=== PATIENT | male | born 1945 | race Caucasian/White ===

== ENCOUNTER 2016-05-27 08:16 | Observation (INO) ==
--- NOTE | 2016-05-27 08:23 | Emergency Department Note ---
Disposition Clinical Impression: TIA (transient ischemic attack), Dysarthria, Right arm weakness Disposition: Admitted As Inpatient Referrals: Brandi Yanes MD [Primary Care Provider] - Forms: ED Satisfaction Letter General Adult HPI - General Chief complaint: ED Neuro Symptoms/Deficit Stated complaint: neuro sx Nursing Notes Reviewed: Yes Vital Signs Reviewed: Yes - Related Data Home Medications Medication Instructions Recorded Confirmed Aspirin 81 mg PO DAILY 02/09/16 03/28/16 Atenolol [Tenormin] 50 mg PO DAILY 02/09/16 03/28/16 Hydrochlorothiazide 25 mg PO DAILY 02/09/16 03/28/16 Insulin NPH Human Isophane 20 unit SQ QAM 02/09/16 03/28/16 [Novolin N] Insulin NPH Human Isophane 40 unit SQ QPM 02/09/16 03/28/16 [Novolin N] Lisinopril 2.5 mg PO DAILY 02/09/16 03/28/16 Metformin [Glucophage] 500 mg PO BIDWM 02/09/16 03/28/16 Simvastatin [Zocor] 40 mg PO QPM 02/09/16 03/28/16 Fish Oil/Dha/Epa [Fish Oil 1,200 1 each PO QPM 03/03/16 03/28/16 mg Fish Oil] Previous Rx's Medication Instructions Recorded Clopidogrel [Plavix] 75 mg PO DAILY #30 tablet 02/11/16 Allergies Allergy/AdvReac Type Severity Reaction Status Date / Time No Known Allergies Allergy Verified 03/28/16 09:49 Past Medical History - Past Medical History Medical history: Reports: arthritis, diabetes, GERD, hyperlipidemia, hypertension, myocardial infarction, renal disease, other Surgical history: Reports: orthopedic, other, other Psychiatric history: Reports: no psych history - Social History Smoking Status: Former smoker Smokeless Tobacco Status: No Alcohol use: Reports: none Drug use: Reports: none Course Vital Signs Temperature 97.6 F 05/27/16 08:18 Pulse Rate 59 05/27/16 08:18 Respiratory Rate 16 05/27/16 08:18 Blood Pressure 174/81 05/27/16 08:18 O2 Sat by Pulse Oximetry 94 L 05/27/16 08:18 Temperature 97.6 F 05/27/16 08:18 Pulse Rate 53 05/27/16 09:46 Respiratory Rate 18 05/27/16 09:46 Blood Pressure 154/78 05/27/16 09:46 O2 Sat by Pulse Oximetry 96 05/27/16 09:46 Oxygen Delivery Oxygen Delivery Room Air Medical Decision Making - MDM Narrative Medical decision making narrative: I examined this patient and my medical decision-making was reviewed with the GEOLOGICAL ENGINEERING TEACHER/PA/Advanced Practice Nurse/Resident Physician. I agree with the documented findings, disposition and treatment plan as described except to the extent set forth below. Patient presents this morning with family, was seen by Dr. Hayes and myself, I agree with his evaluation and management plan, supervise care patient outstay. Patient woke up this morning and felt fine about 6 AM he started having some slurred speech felt some weakness in his arm and leg that lasted maybe a few minutes and has completely resolved. He said the same thing happened a couple weeks ago stating hospital for 3 days had some narrowing of his carotid artery and had an surgery on that has been doing well since. He has no focal deficits at this time. Oriented ill workup on him and talk to neurology. He does not meet criteria for stroke alert since his symptoms have resolved. Head CT 05/27/16 08:27 IMPRESSION: No acute intracranial abnormality. Stable chronic periventricular white matter ischemic changes. D/ / Jose Daniel Emery MD / Jose Daniel Emery MD Interpreting Provider: Jose Daniel Emery MD 0932 hours: Patient is still feeling better. CT is done. We will look to his past workup. He also some clotting abnormalities was seen by him on for that. He is on Plavix and aspirin. Review speak with neurology and then hospitalist about admission here. Patient's agreement with this plan. 0950 hrs.: Spoke with neurology they will follow the patient. They have asked if we would speak with heme on-call so. We will do that and talked to hospitalist for admission. Patient stable at this time. Patient's critical care time excised separately billable procedures is 35 minutes. - Lab Data Result diagrams: 05/27/16 08:50 05/27/16 08:50 Lab Results 05/27/16 05/27/16 05/27/16 Range/Units 08:19 08:50 08:50 WBC 6.8 (4.3-11.1) K/mcL RBC 4.43 (4.19-5.50) M/mcL Hgb 13.6 (12.9-16.9) g/dL Hct 38.2 (37.5-50.1) % MCV 86.2 (83.0-100.0) fL MCH 30.7 (28.0-33.3) pg MCHC 35.6 H (31.6-35.5) g/dL RDW 13.4 (11.5-14.5) % Plt Count 211 (140-400) K/mcL MPV 8.7 L (9.4-12.4) fL Immature Gran % 0.3 (0-4) % Seg Neutrophils % 61.4 % Lymphocytes % 22.1 % Monocytes % 11.2 % Eosinophils % 4.0 % Basophils % 1.0 % Neutrophils # 4.2 (1.6-8.9) K/mcL Lymphocytes # 1.5 (0.6-4.6) K/mcL Monocytes # 0.8 (0.0-1.3) K/mcL Eosinophils # 0.3 (0.0-0.6) K/mcL Basophils # 0.1 (0.0-0.2) K/mcL Immature Plt Fraction 1.6 (1.1-6.1) % PT 11.5 (9.4-12.1) Seconds INR 1.1 APTT 29.8 (26.0-36.0) Seconds Sodium (136-145) mEq/L Potassium (3.5-4.5) mEq/L Chloride (98-109) mEq/L Carbon Dioxide (19-29) mEq/L BUN (8-26) mg/dL Creatinine (0.72-1.25) mg/dL Est GFR ( Amer) (> 60) Est GFR (Non-Af Amer) (> 60) BUN/Creatinine Ratio (6-26) Glucose (70-99) mg/dL POC Glucose 145 H (58-89) Calculated Osmolality (280-300) Calcium (8.6-10.8) mg/dL Troponin I (0-0.03) ng/mL 05/27/16 05/27/16 Range/Units 08:50 08:50 WBC (4.3-11.1) K/mcL RBC (4.19-5.50) M/mcL Hgb (12.9-16.9) g/dL Hct (37.5-50.1) % MCV (83.0-100.0) fL MCH (28.0-33.3) pg MCHC (31.6-35.5) g/dL RDW (11.5-14.5) % Plt Count (140-400) K/mcL MPV (9.4-12.4) fL Immature Gran % (0-4) % Seg Neutrophils % % Lymphocytes % % Monocytes % % Eosinophils % % Basophils % % Neutrophils # (1.6-8.9) K/mcL Lymphocytes # (0.6-4.6) K/mcL Monocytes # (0.0-1.3) K/mcL Eosinophils # (0.0-0.6) K/mcL Basophils # (0.0-0.2) K/mcL Immature Plt Fraction (1.1-6.1) % PT (9.4-12.1) Seconds INR APTT (26.0-36.0) Seconds Sodium 138 (136-145) mEq/L Potassium 5.0 H (3.5-4.5) mEq/L Chloride 107 (98-109) mEq/L Carbon Dioxide 23 (19-29) mEq/L BUN 27 H (8-26) mg/dL Creatinine 1.24 (0.72-1.25) mg/dL Est GFR ( Amer) > 60 (> 60) Est GFR (Non-Af Amer) 57 L (> 60) BUN/Creatinine Ratio 22 (6-26) Glucose 130 H (70-99) mg/dL POC Glucose (58-89) Calculated Osmolality 293 (280-300) Calcium 9.4 (8.6-10.8) mg/dL Troponin I 0.00 (0-0.03) ng/mL
--- NOTE | 2016-05-27 08:28 | Emergency Department Note ---
Disposition Clinical Impression: Dysarthria, Right arm weakness TIA (transient ischemic attack) Qualifiers: Transient cerebral ischemia type: other Qualified Code(s): G45.8 - Other transient cerebral ischemic attacks and related syndromes Disposition: Admitted As Inpatient Referrals: Brandi Yanes MD [Primary Care Provider] - Forms: ED Satisfaction Letter Neuro HPI - General Chief Complaint: ED Neuro Symptoms/Deficit Stated Complaint: neuro sx Time Seen by Provider: 05/27/16 08:24 Source: patient, family Limitations: no limitations Nursing Notes Reviewed: Yes Vital Signs Reviewed: Yes - History of Present Illness HPI Narrative: Mr. Smith, a 71yo male, presents from home by POV with bedside, chief complaint: Slurring of speech and right-sided arm weakness and a blank stare. Onset 6 AM today. Patient was awake and sitting at a table with his when his witnessed onset of symptoms. Duration approximately 15 minutes. Approximately 10 minutes after reported resolution of symptoms, patient attempted to perform finger to nose movements and was unable to do so with the right arm. Patient states that he woke up feeling normal. He states that he is now asymptomatic. at bedside agrees. Currently on aspirin and Plavix. PMH: Factor II mutation, history of previous CVA, insulin-dependent diabetes, hypertension, hyperlipidemia, ACS with 4 stents. Former heavy cigarette smoker. Admits: Slurring of speech, right upper extremity weakness. Both of which are now resolved. Denies: Fever, chills, nausea, vomiting, chest pain, palpitations, changes in vision, vertigo, loss of balance, current weakness, current slurred speech, numbness or tingling. - Related Data Home Medications: Home Medications Medication Instructions Recorded Confirmed Aspirin 81 mg PO QAM 02/09/16 05/27/16 Atenolol [Tenormin] 50 mg PO QAM 02/09/16 05/27/16 Insulin NPH Human Isophane 35 unit SQ QPM 02/09/16 05/27/16 [Novolin N] Lisinopril 5 mg PO QAM 02/09/16 05/27/16 Metformin [Glucophage] 500 mg PO BID 02/09/16 05/27/16 Simvastatin [Zocor] 40 mg PO QPM 02/09/16 05/27/16 Fish Oil/Dha/Epa [Fish Oil 1,200 1 cap PO QPM 03/03/16 05/27/16 mg Fish Oil] Clopidogrel [Plavix] 75 mg PO QAM 05/27/16 05/27/16 Allergies/Adverse Reactions: Allergies Allergy/AdvReac Type Severity Reaction Status Date / Time No Known Allergies Allergy Verified 03/28/16 09:49 All systems ED: reviewed and negative except as stated. (As per history of present illness) Past Medical History - Past Medical History Medical history: Reports: arthritis, diabetes, GERD, hyperlipidemia, hypertension, myocardial infarction, renal disease, other Surgical history: Reports: orthopedic, other, other Psychiatric history: Reports: no psych history - Social History Smoking Status: Former smoker Smokeless Tobacco Status: No Alcohol use: Reports: none Drug use: Reports: none Physical Exam General: Patient is alert, oriented, and in no acute distress. HEENT: No facial asymmetry. No flattened nasolabial fold or ptosis. Head is normocephalic and atraumatic. PERRLA, EOMI. Trachea midline. Cardiovascular: Heart regular rate and rhythm without clicks, rubs, gallops, or murmurs. No JVD. PMI nondisplaced. Respiratory: Symmetric chest rise with good respiratory effort. Bilateral breath sounds are clear without wheezing, crackles, or rhonchi. Abdomen: Bowel sounds present normoactive x-4 quadrants. Abdomen is soft, nondistended, and nontender. No organomegaly noted. Musculoskeletal: Muscle strength 5/5 and symmetric bilaterally in upper and lower extremities. Neuro: Cranial nerves II through XII without deficit. Sensation light touch intact. Negative ear nose, negative [id number]. Patient's speech does not demonstrate dysphagia. Psych: Patient's affect is appropriate for situation. - General Limitations: no limitations General appearance: alert Course Course Narrative: Jan - admitted for ischemic CVA with chief complaint ataxia. CT head without contrast showed multiple areas of low attenuation located in the left frontal, left occipotal and right head of caudate suspicious for acute or subacute infarct MRI brain suspicious for infarcts in left posterior frontal parietal lobe. MRA brain was unremarkable MRA neck 80-90% stenosis right ICA Cardiac echo showed LVEF 60% with no stomach and valvular dysfunction Heme/Onc workup Hetererozygote for prothrombin factor II mutation 28 Mar 2016 Rt carotid endarterectomy 09:15 Patient re-examined. 09:45 Neuro consult, Dr. Teixeira. Patient's neuro workup is recent and thorough; it is unlikely to change on repeat workup. He recommends heme consult next. If heme recommends admission, neuro will see and workup the patient. If heme recommends anticoagulation as outpatient, neuro will follow as outpatient. 10:00 Heme/Onc consult, Dr. Mak. She agrees to follow the patient. She is of the mindset that neuro should modify his antiplatelet/anticoagulation. 10:10 Hospitalist, Dr. Woodward. He agrees to accept the patient. Vital Signs Temperature 97.6 F 05/27/16 08:18 Pulse Rate 59 05/27/16 08:18 Respiratory Rate 16 05/27/16 08:18 Blood Pressure 174/81 05/27/16 08:18 O2 Sat by Pulse Oximetry 94 L 05/27/16 08:18 Temperature 97.6 F 05/27/16 08:18 Pulse Rate 53 05/27/16 09:46 Respiratory Rate 18 05/27/16 09:46 Blood Pressure 154/78 05/27/16 09:46 O2 Sat by Pulse Oximetry 96 05/27/16 09:46 Oxygen Delivery Oxygen Delivery Room Air Neuro Symptoms/Deficit - Lab Data Lab results reviewed: Yes I reviewed the patient's lab results. Result diagrams: 05/27/16 08:50 05/27/16 08:50 Lab Results 05/27/16 05/27/16 05/27/16 Range/Units 08:19 08:50 08:50 WBC 6.8 (4.3-11.1) K/mcL RBC 4.43 (4.19-5.50) M/mcL Hgb 13.6 (12.9-16.9) g/dL Hct 38.2 (37.5-50.1) % MCV 86.2 (83.0-100.0) fL MCH 30.7 (28.0-33.3) pg MCHC 35.6 H (31.6-35.5) g/dL RDW 13.4 (11.5-14.5) % Plt Count 211 (140-400) K/mcL MPV 8.7 L (9.4-12.4) fL Immature Gran % 0.3 (0-4) % Seg Neutrophils % 61.4 % Lymphocytes % 22.1 % Monocytes % 11.2 % Eosinophils % 4.0 % Basophils % 1.0 % Neutrophils # 4.2 (1.6-8.9) K/mcL Lymphocytes # 1.5 (0.6-4.6) K/mcL Monocytes # 0.8 (0.0-1.3) K/mcL Eosinophils # 0.3 (0.0-0.6) K/mcL Basophils # 0.1 (0.0-0.2) K/mcL Immature Plt Fraction 1.6 (1.1-6.1) % PT 11.5 (9.4-12.1) Seconds INR 1.1 APTT 29.8 (26.0-36.0) Seconds Sodium (136-145) mEq/L Potassium (3.5-4.5) mEq/L Chloride (98-109) mEq/L Carbon Dioxide (19-29) mEq/L BUN (8-26) mg/dL Creatinine (0.72-1.25) mg/dL Est GFR ( Amer) (> 60) Est GFR (Non-Af Amer) (> 60) BUN/Creatinine Ratio (6-26) Glucose (70-99) mg/dL POC Glucose 145 H (58-89) Calculated Osmolality (280-300) Calcium (8.6-10.8) mg/dL Troponin I (0-0.03) ng/mL 05/27/16 05/27/16 Range/Units 08:50 08:50 WBC (4.3-11.1) K/mcL RBC (4.19-5.50) M/mcL Hgb (12.9-16.9) g/dL Hct (37.5-50.1) % MCV (83.0-100.0) fL MCH (28.0-33.3) pg MCHC (31.6-35.5) g/dL RDW (11.5-14.5) % Plt Count (140-400) K/mcL MPV (9.4-12.4) fL Immature Gran % (0-4) % Seg Neutrophils % % Lymphocytes % % Monocytes % % Eosinophils % % Basophils % % Neutrophils # (1.6-8.9) K/mcL Lymphocytes # (0.6-4.6) K/mcL Monocytes # (0.0-1.3) K/mcL Eosinophils # (0.0-0.6) K/mcL Basophils # (0.0-0.2) K/mcL Immature Plt Fraction (1.1-6.1) % PT (9.4-12.1) Seconds INR APTT (26.0-36.0) Seconds Sodium 138 (136-145) mEq/L Potassium 5.0 H (3.5-4.5) mEq/L Chloride 107 (98-109) mEq/L Carbon Dioxide 23 (19-29) mEq/L BUN 27 H (8-26) mg/dL Creatinine 1.24 (0.72-1.25) mg/dL Est GFR ( Amer) > 60 (> 60) Est GFR (Non-Af Amer) 57 L (> 60) BUN/Creatinine Ratio 22 (6-26) Glucose 130 H (70-99) mg/dL POC Glucose (58-89) Calculated Osmolality 293 (280-300) Calcium 9.4 (8.6-10.8) mg/dL Troponin I 0.00 (0-0.03) ng/mL - Radiology Data Radiology results reviewed: Yes I reviewed the patient's radiology results. - EKG Data EKG attestation: Yes I reviewed and interpreted this EKG. EKG results narrative: EKG 05/27/16 shows sinus bradycardia with a rate of 54. Will intervals. Normal axis. Right bundle branch block. Nonspecific ST-T changes. Compared to previous dated 03/27/2016 showing no acute ischemic changes comparison. NIH Stroke Scale - Level of Consciousness LOC: Alert - LOC Questions LOC Questions: Answers both correctly - LOC Commands LOC Commands: Performs both correctly - Best Gaze Best Gaze: Normal - Visual Visual: No visual loss - Facial Palsy Facial Palsy: Normal - Motor Arms Motor Arm-Left: No drift for 10 seconds Motor Arm-Right: No drift for 10 seconds - Motor Legs Motor Leg-Left: No drift for 5 seconds Motor Leg-Right: No drift for 5 seconds - Limb Ataxia Limb Ataxia: Normal, No Ataxia - Sensory Sensory: Normal - Best Language Best Language: No aphasia - Dysarthria Dysarthria: Normal - Extinction and Inattention Extinction and Inattention: Normal - NIHSS Total Score NIHSS Total Score: 0 TPA Checklist - Source Information Source: [facility] - Eligibilty for IV tPA 1. LKW equal to or less than 4.5 hours be before treatment: Yes 2. Clinical diagnosis of ischemic stroke causing deficit: Yes 3. Age 18 years or older: Yes - Contraindications 4. Evidence of intracranial hemorrhage on pretreatment CT: No 5. Presentation suggests subarachnoid hem, even if CT normal: No 6. CT shows multilobar infarction: No 7. History of intracranial hemorrhage: No 8. Known neoplasm, arteriovenous malformation, or aneurysm: No 9. Significant head trauma (w/ LOC) or CVA in last 3 months: No 10. Intracranial or intraspinal surgery in 3 months: No 11. Arterial puncture at non-compressable site/LP in 7 days: No 12. BP elevated (systolic > 185 or diastolic > 110): No 13. Abnormal Blood Glucose (<50 or >400mg/dl): No 14. Active internal bleeding: No 15. Known bleeding risk (including; not limited to 16-18): Yes 16. Heparin/argatroban/bivalirudin w/in 48hrs & PTT > normal: No 17. Platelet count less than 100,000/MM3: No 18. Current or recent use of anticoagualants (see protocol): Yes - Relative Contraindications 19. Only minor or rapidly improving stroke symptoms: Yes 20. Seizure at onset w/ postictal residual neuro impairments: No 21. : No 22. Current/recent use Effient (7 days) or Brilinta (5 days): No 23. Major surgery or serious truama in last 14 days: No 24. GI or urinary tract hemorrhage in last 21 days: No 25. Myocardial infarction within last 3 months: No - LKW: 3-4.5 hrs Add. Contraindications 26. Age greater than 80 years: No 27. Taking an oral anticoagualant regardless of INR: Yes 28. Severe CVA as assessed (NIHSS > 25) or by imaging: No 29. Combination of previous CVA AND diabetes: Yes Patient/family understanding: The patient/family members have been counseled and understood the risk, benefit , and alternatives of treatment.
[2016-05-27 08:59] LABS: Basophils # 0.1 K/mcL (0.0-0.2); Eosinophils # 0.3 K/mcL (0.0-0.6); Hematocrit 38.2 % (37.5-50.1); Hemoglobin 13.6 g/dL (12.9-16.9); Immature Granulocytes % 0.3 % (0-4); Immature Platelets 1.6 % (1.1-6.1); Lymphocytes # 1.5 K/mcL (0.6-4.6); Lymphocytes % 22.1 %; Mean Corpuscular HGB Conc 35.6 g/dL (31.6-35.5); Mean Corpuscular Hemoglobin 30.7 pg (28.0-33.3); Mean Corpuscular Volume 86.2 fL (83.0-100.0); Mean Platelet Volume 8.7 fL (9.4-12.4); Monocytes # 0.8 K/mcL (0.0-1.3); Monocytes % 11.2 %; Neutrophils # 4.2 K/mcL (1.6-8.9); Platelet Count 211 K/mcL (140-400); Red Blood Count 4.43 M/mcL (4.19-5.50); Red Cell Distribution Width 13.4 % (11.5-14.5); Segmented Neutrophils % 61.4 %
[2016-05-27 09:08] LABS: INR 1.1; Prothrombin Time 11.5 Seconds (9.4-12.1)
[2016-05-27 09:10] LABS: Activated Partial Thrombo Time 29.8 Seconds (26.0-36.0)
[2016-05-27 09:11] LABS: BUN/Creatinine Ratio 22 (6-26); Blood Urea Nitrogen 27 mg/dL (8-26); Calcium 9.4 mg/dL (8.6-10.8); Carbon Dioxide 23 mEq/L (19-29); Chloride 107 mEq/L (98-109); Glucose 130 mg/dL (70-99); Osmolality,Calculated 293 (280-300); Sodium 138 mEq/L (136-145); eGFR For African Americans > 60 (> 60); eGFR For Non-African Americans 57 (> 60)
[2016-05-27] MEDS ORDERED: Naloxone 0.4 MG/ML INJ IVP PRN (10:50)
--- NOTE | 2016-05-27 11:05 | Oncology Inp Consult Note ---
Date of Encounter: 05/27/16 Time of Encounter: 11:00 Assessment and Plan (1) TIA (transient ischemic attack) Status: Acute Assessment and plan: 71-year-old male with diabetes mellitus, hyperlipidemia, hypertension, X smoking history status post right candidate endarterectomy, prior CVA with symptoms of TIA, on antiplatelet therapy per neurology. A head Ct showed no ac changes. Further recommendations per neurology. He is being worked up extensively for hypercoagulable condition in the past and only notable finding was prothrombin gene mutation heterozygosity the presence of it should not modify management decisions for arterial thromboembolism, CVA or recurrent TIA. Risk for an arterial event is only 1.3-4 old in carriers of the mutation compared with non-carriers with possibly a stronger association in younger patients. His lupus anticoagulant was negative. Antiphospholipid, cardiolipin antibodies were not available for my review today and ordered. Need to be confirmed at later date if any abnormality. Qualifiers: Transient cerebral ischemia type: unspecified Qualified Code(s): G45.9 - Transient cerebral ischemic attack, unspecified - Data of Consult Requesting Physician: Husam Hutchins MD Primary Care Provider: Brandi Yanes, - Consult Narrative Reason for consult: CVA, TIA History of present illness: Mr. Smith is a 71 year old male diagnosis the prothrombin gene mutation heterozygosity, symptoms of left hemiparesis in January [address] scan showed multiple infarct in the left frontal left occipital lobe regions. This was thought to be due to thromboembolic etiology, patient had started dual antiplatelet therapy. A thrombophilia workup at that time was completely negative except for prothrombin gene heterozygosity. Neck MRA showed stenosis of right internal carotid artery patient is status post endarterectomy. Smoker quit 16 years ago. He has medical comorbidities including diabetes mellitus, hypertension and hyperlipidemia, coronary artery disease. He was brought into the hospital with history of slurred speech and right arm weakness and a blank stare for ER report. Patient had also felt weak with right arm movements after this episode that lasted for 15 minutes. He was consulted for? Hypercoagulable condition/prothrombin gene mutation/ heterozygosity. Past Med Surg Social Fam HX - Past Medical History Medical history: arthritis, diabetes, GERD, hyperlipidemia, hypertension, myocardial infarction, renal disease, other Psychiatric history: no psych history - Past Surgical History Surgical History: orthopedic, other, other - Social History Smoking Status: Former smoker Smokeless Tobacco Status: No Alcohol use: none Drug use: none - Family History Father Living Status: Hx Family Cardiac Disorders: Yes Mother Living Status: Still Living Hx Family Neuromuscular Disorders: Yes (Stroke) Medications and Allergies Aspirin 81 mg PO QAM 02/09/16 [History] Atenolol [Tenormin] 50 mg PO QAM 02/09/16 [History] Insulin NPH Human Isophane [Novolin N] 35 unit SQ QPM 02/09/16 [History] Lisinopril 5 mg PO QAM 02/09/16 [History] Metformin [Glucophage] 500 mg PO BID 02/09/16 [History] Simvastatin [Zocor] 40 mg PO QPM 02/09/16 [History] Fish Oil/Dha/Epa [Fish Oil 1,200 mg Fish Oil] 1 cap PO QPM 03/03/16 [History] Clopidogrel [Plavix] 75 mg PO QAM 05/27/16 [History] Allergies No Known Allergies Allergy (Verified 03/28/16 09:49) Review of systems: not performed as patient i snot in his bed Oncology - Exam - Constitutional Vitals: Temp Pulse Resp BP Pulse Ox 97.6 F 53 18 154/78 96 05/27/16 08:18 05/27/16 09:46 05/27/16 10:28 05/27/16 10:28 05/27/16 09:46 Exam: exam to be performed when he returns to his bed Consult Discharge Plan - Plan Referrals: Brandi Yanes MD [Primary Care Provider] -
[2016-05-27] MEDS ORDERED: Dextrose Gel 15 GM PO PRN ×2 (11:13)
[2016-05-27] MEDS ORDERED: *HR* Dextrose 50 % in Water (Syg) 50 ML SYRINGE IVP PRN (11:13)
[2016-05-27] MEDS ORDERED: D5% in Water 1,000 ML IV PRN (11:13)
[2016-05-27] MEDS ORDERED: Aspirin 325 MG TABLET PO ONE (11:25)
--- NOTE | 2016-05-27 11:30 | Internal Med History&Physical ---
<Xiomara Khan - Last Filed: 05/27/16 23:27> Date of Encounter: 05/27/16 Time of Encounter: 11:25 Assessment and Plan (1) TIA (transient ischemic attack) Current visit: Yes Status: Acute Patient reports slurred speech and right arm paralysis this morning started at 6 AM lasting for approximately 15 minutes. Symptoms are fully resolved. Patient had CVA in January 2016 with ataxia right arm numbness and slurred speech. He had full workup at that time including the following: -Head CT 02/09/16: At least 2 and possibly 3 areas of low attenuation, left frontal, left occipital and right head of the caudate, worrisome for acute or subacute infarct. - Brain MRI 02/09/16: Small acute left posterior frontoparietal lobe infarct, moderate chronic small vessel ischemic disease within the periventricular white matter, moderate cerebral atrophy. - Echocardiogram 02/10/2016: No significant valvular dysfunction, normal wall motion, LVEF 60%, normal LV size and function, mild LV diastolic dysfunction. - MRA Head 02/10/16: Aplastic A1 segment of the right anterior cerebral artery, hypoplastic right P1 segment of the posterior cerebral artery with an area of focal stenosis, no evidence of large vessel occlusion or aneurysm. - Neck MRA 02/10/16: Severe stenosis involving the proximal right internal carotid artery measuring 80-90% secondary to atherosclerosis. The left common carotid artery and left internal carotid artery are of normal course and caliber , the right common carotid artery is of normal course and caliber the vertebral arteries are of normal course and caliber. - Carotid duplex 03/03/16: Right internal carotid artery has an 80-99% stenosis , left internal carotid artery has a 60-79% stenosis. - 03/03/16: Hematology consult: Patient with heterozygous prothrombin gene mutation. Risk of anti-coagulation thought to outweigh the benefits and recommended continue dual anti-platelet therapy with aspirin and plavix. - 03/28/16: Right carotid endarterectomy. Today's head CT showed: No acute intracranial abnormality. Stable chronic periventricular whate matter ischemic changes. Plan: Neurology consult Hematology consult Non-contrast MRI of head and Brain Will also consult vascular with concerns for discrepancy on previous Neck MRA and carotid duplex, with recurrent TIA symptoms on right side. Qualifiers: Transient cerebral ischemia type: unspecified Qualified Code(s): G45.9 - Transient cerebral ischemic attack, unspecified (2) Hypertension Current visit: No Status: Chronic Continue home dose of atenolol and lisinopril Qualifiers: Hypertension type: essential hypertension Qualified Code(s): I10 - Essential (primary) hypertension (3) Prothrombin [id number] mutation Current visit: Yes Status: Chronic Heme/onc consulted. (4) Type 2 diabetes mellitus Current visit: Yes Status: Chronic diabetic diet Hgb A1c was 6.6 on 01/31/16. check blood sugars ACHS Continue basal dose of insulin: 35u levemir HS Hold metformin Sliding scale correction dose ACHS hypoglycemic protocol Qualifiers: Diabetes mellitus complication status: with circulatory complication Diabetes mellitus complication detail: with other circulatory complications Diabetes mellitus meterman insulin use: with meterman use Qualified Code(s) : E11.59 - Type 2 diabetes mellitus with other circulatory complications; Z79.4 - group home (current) use of insulin (5) Hyperkalemia Current visit: Yes Status: Acute Potassium of 5.0. One dose of Kayexalate ordered. recheck chemistry in the morning (6) DVT prophylaxis Current visit: Yes Status: Acute ambulate with assistance anti-embolic stockings Heparin 5,000u SQ TID Internal Medicine - H&P: HPI Chief complaint: temporary slurred speech and right arm paralysis Admitted From: Emergency Dept Plans for Post Hospital Care: Home History of present illness: Mr. Smith is a 71 year old male tension, type 2 diabetes, hyperlipidemia, coronary artery disease, and recent CVA in January presented to the emergency department this morning after an episode of slurred speech and right arm paralysis. He reports he woke up this morning and felt normal, he was sitting at the kitchen table speaking with his when his speech began to slur. He tried to raise his right arm and was able to do it but his arm felt heavy and flaccid. His symptoms lasted for approximately 15 minutes and then resolved. He denies any chest pain, palpitations, shortness of breath, lightheadedness, dizziness, faint. Any nausea, vomiting, abdominal pain. He denies any recent infection, fever, chills, sweats. Evaluation in the emergency department included a CT of the head which was negative for acute abnormality, EKG showed sinus bradycardia at 54 bpm with no acute ischemic changes compared to prior EKG and Benja. Troponin was negative at 0.0, he was slightly hyperkalemic with a potassium of 5.0. On exam, patient is alert and oriented, in no acute distress. He has a normal gait, cranial nerves are intact, pupils equal and reactive to light. No pronator drift, normal speech. Heart is regular rate and rhythm, lungs are clear bilaterally to auscultation. Past Med Surg Social Fam HX - Past Medical History Medical history: arthritis, diabetes, GERD, hyperlipidemia, hypertension, myocardial infarction, renal disease, other Psychiatric history: no psych history - Past Surgical History Surgical History: orthopedic, other, other - Social History Smoking Status: Former smoker Smokeless Tobacco Status: No Alcohol use: none Drug use: none - Family History Father Living Status: Hx Family Cardiac Disorders: Yes Mother Living Status: Still Living Hx Family Neuromuscular Disorders: Yes (Stroke) Internal Medicine - H&P: Meds Aspirin 81 mg PO QAM 02/09/16 [History] Atenolol [Tenormin] 50 mg PO QAM 02/09/16 [History] Insulin NPH Human Isophane [Novolin N] 35 unit SQ QPM 02/09/16 [History] Lisinopril 5 mg PO QAM 02/09/16 [History] Metformin [Glucophage] 500 mg PO BID 02/09/16 [History] Simvastatin [Zocor] 40 mg PO QPM 02/09/16 [History] Fish Oil/Dha/Epa [Fish Oil 1,200 mg Fish Oil] 1 cap PO QPM 03/03/16 [History] Clopidogrel [Plavix] 75 mg PO QAM 05/27/16 [History] Allergies No Known Allergies Allergy (Verified 03/28/16 09:49) All Systems PM: A 10-system review of systems was performed and is negative for pertinent findings except as documented above in the HPI. - Constitutional Constitutional: no chills, no fever(s), no night sweats - EENT Eyes: no change in vision, no discharge, no pain, no photophobia Ears: no ear discharge, no ear pain, no tinnitus Nose, mouth and throat: no dysphagia, no nasal discharge, no neck pain, no sore throat - Cardiovascular Cardiovascular ROS IM: no chest pain, no diaphoresis, no dyspnea, no lightheadedness, no palpitations, no syncope - Respiratory Respiratory: no cough, no dyspnea, no wheezing, no excessive phlegm production - Gastrointestinal Gastrointestinal: no abdominal pain, no diarrhea, no hematemesis, no hematochezia, no melena, no nausea, no vomiting - Musculoskeletal Musculoskeletal ROS IM: no numbness, no tingling - Integumentary Integumentary IM: no rash, no unusual bruising - Neurological Neurological ROS: abnormal speech (slurred speech, now resolved), focal weakness (right arm, now resolved ), no confusion, no convulsions, no numbness, no tingling, no tremor(s) - Hematologic/Lymphatic Hematologic/Lymphatic: no easy bruising - Constitutional Vitals: Temp Pulse Resp BP Pulse Ox 97.6 F 56 15 161/88 96 05/27/16 10:57 05/27/16 10:57 05/27/16 10:57 05/27/16 10:57 05/27/16 10:57 General appearance: Present: A&O X 3, pleasant, no acute distress - Head Head exam: Present: atraumatic, normocephalic - Eye Eye exam: Present: PERRL, conjuntiva pink, sclera anicteric Pupils: Present: PERRL - Neck Neck exam general surgery: Present: supple, trachea midline. Absent: lymphadenopathy - Respiratory Respiratory exam: Present: CTAB. Absent: accessory muscle use, rales, rhonchi, wheezes - Cardiovascular Cardiovascular exam: Present: RRR, +S1, +S2. Absent: diastolic murmur, gallop, rubs, systolic murmur - GI/Abdominal GI/Abdominal exam: Present: normal bowel sounds, soft, no peritoneal signs. Absent: distended, tenderness - Extremities Exam Extremities exam: Present: warm, radial pulses palpable and symetrical. Absent : calf tenderness, cyanotic, pedal edema - Neurological Exam Neurological exam: Present: CN II-XII intact, oriented X3, no focal deficits. Absent: pronater drift, facial droop, speech deficit - Expanded Neurological Exam Patient oriented to: Present: person, place, time Speech: Present: fluid speech Cranial Nerves: EOM's intact PM: Normal, nystagmus PM: Normal, tongue deviation PM: Normal Cerebellar function: finger to nose: Normal Upper motor neuron: pronator drift: Normal Sensory exam: LE 2 point discrimination: Normal, lower extremity light touch: Normal, UE 2 point discrimination: Normal, upper extremity light touch: Normal Neuro motor strength exam: LUE: 5, RUE: 5, LLE: 5, RLE: 5 - Skin Skin exam: Present: dry, intact Internal Med - H&P Results - Labs CBC & Chem 7: 05/27/16 08:50 05/27/16 08:50 <Que Chamberlain - Last Filed: 05/28/16 08:16> Date of Encounter: 05/28/16 Internal Medicine - H&P: HPI History of present illness: Mr. Smith is a 71 year old male All Systems PM: A 10-system review of systems was performed and is negative for pertinent findings except as documented above in the HPI. - Constitutional Vitals: Temp Pulse Resp BP Pulse Ox 98.4 F 52 15 156/78 96 05/28/16 06:38 05/28/16 06:38 05/28/16 06:38 05/28/16 06:38 05/28/16 08:00 Internal Med - H&P Results - Labs CBC & Chem 7: 05/28/16 04:42 05/28/16 04:42 Labs: Short CBC 05/28/16 Range/Units 04:42 WBC 6.6 (4.3-11.1) K/mcL Hgb 13.5 (12.9-16.9) g/dL Hct 40.0 (37.5-50.1) % Plt Count 185 (140-400) K/mcL Neutrophils # 4.2 (1.6-8.9) K/mcL BMP 05/28/16 04:42 Sodium 139 Potassium 4.5 Chloride 108 Carbon Dioxide 22 BUN 19 Creatinine 1.23 Glucose 121 H Calcium 9.1 - Impressions ITS Impressions Brain MRI 05/27/16 12:01 IMPRESSION: 1. Small, acute right caudate head lacunar infarct. 2. Numerous, small foci of acute infarct in the left centrum semiovale and left frontal and parietal lobes. These are in the left MCA vascular territory distribution. 3. Mild generalized volume loss and mild chronic microvascular ischemic disease are unchanged. D/ / 05/27/2016 14:53:18 Eben Kenyon MD / heath Interpreting Provider: Eben Kenyon MD - Attending Attestation I examined this patient and my medical decision-making was reviewed with the Advanced Practice Provider. I agree with the documented findings, disposition and treatment plan as described except to the extent set forth below. On exam the patient is in no acute distress awake alert oriented 3. Heart is regular rhythm S1-S2. Neurologic exam is nonfocal. We will place the patient in observation, monitor on telemetry, obtain MRI to rule out recurrent CVA given the patient's symptoms are similar to the ones he had when he developed a left parietal CVA. Consult hematology for reevaluation of prothrombin factor II mutation. Consult vascular surgery for evaluation of possible need for left carotid endarterectomy given Doppler findings and the fact that his stroke symptoms correlate left MCA territory.
[2016-05-27] MEDS: Insulin LISPRO 300 UNITS/3 ML VIAL SQ SCH ×3 (11:54→21:56)
--- NOTE | 2016-05-27 16:12 | Vascular/Endovasc Consult Note ---
Date of Encounter: 05/27/16 Time of Encounter: 16:08 Assessment and Plan (1) CVA (cerebrovascular accident) Current Visit: Yes Status: Acute Numerous small foci of acute infarction in left hemisphere particularly in the frontal and parietal region. Small area of acute lacunar foci at the right caudate area Due to the fact of the recent successful right carotid endarterectomy and that he has multiple foci on the MRI of infarction in the left hemisphere this would suggest a more central circulation or cardiac source. Of note the MRA performed in January did not demonstrate any significant left carotid system stenosis. I will order a repeat carotid artery duplex scan to reevaluate this carotid system. If all other workup is negative such as transesophageal echocardiogram and other testing as deemed necessary please inform me and I would then consider the patient for a formal arch aortogram and catheter based selective carotid artery angiogram to rule out a potential occult lesion that is not apparent on these noninvasive modalities. 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 Smith is a 71 year old male Admitted via the emergency room earlier this morning for right upper extremity arm weakness and difficulty with speech. This resolved spontaneously after a number of minutes. Because of his past history he was then taken to the emergency room and was admitted. He had undergone a right carotid endarterectomy in March 2016. In addition he had suffered a left brain stroke in January 2016. He underwent extensive evaluation at that time that included MRA an MRI imaging of the brain and neck. No significant left internal carotid artery stenosis was identified at that time. He did have an acute left frontal parietal stroke. An 80-90% right internal carotid artery stenosis was identified which was confirmed by duplex scanning. He then went on to have uneventful right carotid endarterectomy. The patient has no symptoms from the right hemisphere. On my visit with the patient this afternoon he states that he has no neurologic symptoms and feels well. Past Med Surg Social Fam HX - Past Medical History Medical history: arthritis, diabetes, GERD, hyperlipidemia, hypertension, myocardial infarction, renal disease, other (Heterozygous for prothrombin [id number] mutation) Psychiatric history: no psych history - Past Surgical History Surgical History: angioplasty/stent (Multiple coronary stents), carotid endarterectomy, cataract, orthopedic, other, vascular surgery (Right carotid endarterectomy March 2016), other - Social History Smoking Status: Former smoker Smokeless Tobacco Status: No Alcohol use: none Drug use: none - Family History Father Living Status: Hx Family Cardiac Disorders: Yes Mother History Unknown: Yes Adopted: No Living Status: Still Living Hx Family Neuromuscular Disorders: Yes (Stroke) Medications and Allergies Aspirin 81 mg PO QAM 02/09/16 [History] Atenolol [Tenormin] 50 mg PO QAM 02/09/16 [History] Insulin NPH Human Isophane [Novolin N] 35 unit SQ QPM 02/09/16 [History] Lisinopril 5 mg PO QAM 02/09/16 [History] Metformin [Glucophage] 500 mg PO BID 02/09/16 [History] Simvastatin [Zocor] 40 mg PO QPM 02/09/16 [History] Fish Oil/Dha/Epa [Fish Oil 1,200 mg Fish Oil] 1 cap PO QPM 03/03/16 [History] Clopidogrel [Plavix] 75 mg PO QAM 05/27/16 [History] Allergies No Known Allergies Allergy (Verified 03/28/16 09:49) All Systems Review: A 10-system review of systems was performed and is negative for pertinent findings except as documented above in the HPI. Exam General: Present: Conversant, No Apparent Distress, Well developed, Well nourished HEENT: Present: Atraumatic, Normocephaly, Trachea midline, Pupils equal Neck: Absent: JVD, Lymphadenopathy, Left Carotid bruit, Right Carotid bruit, Midline deformity, Tracheal deviation, Thyromegaly Cardiac: Present: Reg Rate and Rhythm, Normal S1 and S2, No Murmur. Absent: Irregular Rhythm Lungs: Present: Normal Breath Sounds, No Wheeze, Rales, Rhonchi Neuro: Present: Alert and responsive, No focal deficits noted, Cranial nerves grossly intact, Motor nerves grossly intact, Sensory nerves grossly intact Abdomen: Present: Soft, Non-tender Vascular: Present: Normal capillary refill Skin: Present: No rashes noted on visualized skin Musculoskeletal: Present: No Chest Wall Tenderness Consult Discharge Plan - Plan Referrals: Brandi Yanes MD [Primary Care Provider] -
--- NOTE | 2016-05-27 17:41 | Neurology - Consult Note ---
Date of Encounter: 05/27/16 Time of Encounter: 17:40 Assessment and Plan (1) Multiple cerebral infarctions Current Visit: Yes Status: Acute THIS pt who earlier had infarct with h/o carotid stenosis s/p CEA, now seems to have multiple embolic infarct predominantly in th left hemisphere but also has few in the right as well. considering multiple small emboli both hemispheres, certainly central embolic source needs to be excluded. At the same time I will recommend repeating carotid duplex as well suggest JAMARCUS especially to look for any abnormality in the atrium particularly for any clot. And if that is negative perhaps we need to discuss with heme / oncology, that his heterozygous clotting tendency may be the contributing factor, it is rare to have stroke in this age from any clotting tendency. regardless as he has these events while he is on aspirin and plavix, he probably need to be anticoagulated. Due to the fact that aspirin and Plavix has not helped, I would recommend anticoagulation other devastating stroke. at the same time blood pressure need to be monitored and have to be controlled, he would remain on statin as well. discussed with pt and family History of Present Illness HPI: Mr. Smith is a 71 year old male with history of type 2 diabetes, hyperlipidemia, coronary artery disease, and recent CVA in January s/p Right CEA presented to the emergency department this morning after an episode of slurred speech and right arm wekaness lasted for 15 minutes and back to normal, pt was sitting at the kitchen table speaking with his when his speech began to slur. He noted weakness of left arm felt heavy and flaccid. His symptoms lasted for approximately 15 minutes and then resolved. He denies any chest pain, palpitations, shortness of breath, lightheadedness, dizziness, faint. Any nausea, vomiting, abdominal pain. He denies any recent infection, fever, chills, sweats. In the emergency department, CT of the head which was negative for acute abnormality, EKG showed sinus bradycardia at 54 bpm with no acute ischemic changes compared to prior EKG and March. pt was admitted for further work up. 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) Psychiatric history: no psych history - Past Surgical History Surgical History: angioplasty/stent (Multiple coronary stents), carotid endarterectomy, cataract, orthopedic, other, vascular surgery (Right carotid endarterectomy March 2016), other - Social History Smoking Status: Former smoker Smokeless Tobacco Status: No Alcohol use: none Drug use: none - Family History Father Living Status: Hx Family Cardiac Disorders: Yes Mother History Unknown: Yes Adopted: No Living Status: Still Living Hx Family Neuromuscular Disorders: Yes (Stroke) Medications and Allergies Aspirin 81 mg PO QAM 02/09/16 [History] Atenolol [Tenormin] 50 mg PO QAM 02/09/16 [History] Insulin NPH Human Isophane [Novolin N] 35 unit SQ QPM 02/09/16 [History] Lisinopril 5 mg PO QAM 02/09/16 [History] Metformin [Glucophage] 500 mg PO BID 02/09/16 [History] Simvastatin [Zocor] 40 mg PO QPM 02/09/16 [History] Fish Oil/Dha/Epa [Fish Oil 1,200 mg Fish Oil] 1 cap PO QPM 03/03/16 [History] Clopidogrel [Plavix] 75 mg PO QAM 05/27/16 [History] Allergies No Known Allergies Allergy (Verified 03/28/16 09:49) All Systems: A 10-system review of systems was performed and is negative for pertinent findings except as documented above in the HPI. Physical Examination - Vital Signs Vital Signs: Initial Vital Signs Temp Pulse Resp BP Pulse Ox 97.6 F 59 16 174/81 94 L 05/27/16 08:18 05/27/16 08:18 05/27/16 08:18 05/27/16 08:18 05/27/16 08:18 - Exam Exam: HEART : S1 S 2 AUDIBLE, LUNG: CTA, EXT: NO PEDAL EDEMA - Constitutional General appearance: comfortable - Neurologic Detailed motor examination: full strength in all major muscle groups Motor examination - right side: 5/5: deltoids, biceps, triceps, wrist flexion, wrist extension, protective signal operator, hip flexors, tibialis Anterior, quadriceps, toe extension (EHL), plantarflexion Motor examination - left side: 5/5: deltoids, biceps, triceps, wrist flexion, wrist extension, hip flexors, protective signal operator, quadriceps, tibialis Anterior, toe extension (EHL), plantarflexion Reflexes: Biceps: 1+, Triceps: 1+, Brachioradialis: 1+, Patella: 1+, Achilles: 1 + Mental Status Examination: awake, alert, oriented to person, oriented to place, oriented to time, follows commands appropriately, answers questions appropriately, no agnosia, no aphasia, no aproxia Cranial nerve examination: PERRL, EOMI, visual johnson intact, corneal reflexes brisk symmetrically, sensory to face intact, mastication intact, no facial asymmetry is present, no dysarthria, hearing is intact symmetrically, soft palate elevates bilaterally upon phonation, gag reflex intact, flexes SCM and trapezius muscles symmetrically with full power, tongue protrudes midline, no atrophy or facial fasiculations present Cerebellar examination: no dysmetria, performs finger to nose and heel to das symmetrically without ataxia, no gait ataxia, no truncal ataxia, no difficulty with rapid alternating movements Results - Laboratory Findings CBC and BMP: 05/27/16 08:50 05/27/16 08:50 Abnormal lab findings: Abnormal lab results MCHC 35.6 g/dL (31.6-35.5) H 05/27/16 08:50 MPV 8.7 fL (9.4-12.4) L 05/27/16 08:50 Potassium 5.0 mEq/L (3.5-4.5) H 05/27/16 08:50 BUN 27 mg/dL (8-26) H 05/27/16 08:50 Est GFR (Non-Af Amer) 57 (> 60) L 05/27/16 08:50 Glucose 130 mg/dL (70-99) H 05/27/16 08:50 POC Glucose 145 (58-89) H 05/27/16 08:19 - Diagnostic Findings Additional findings: He had full workup at that time including the following: -Head CT 02/09/16: At least 2 and possibly 3 areas of low attenuation, left frontal, left occipital and right head of the caudate, worrisome for acute or subacute infarct. - Brain MRI 02/09/16: Small acute left posterior frontoparietal lobe infarct, moderate chronic small vessel ischemic disease within the periventricular white matter, moderate cerebral atrophy. - Echocardiogram 02/10/2016: No significant valvular dysfunction, normal wall motion, LVEF 60%, normal LV size and function, mild LV diastolic dysfunction. - MRA Head 02/10/16: Aplastic A1 segment of the right anterior cerebral artery, hypoplastic right P1 segment of the posterior cerebral artery with an area of focal stenosis, no evidence of large vessel occlusion or aneurysm. - Neck MRA 02/10/16: Severe stenosis involving the proximal right internal carotid artery measuring 80-90% secondary to atherosclerosis. The left common carotid artery and left internal carotid artery are of normal course and caliber , the right common carotid artery is of normal course and caliber the vertebral arteries are of normal course and caliber. - Carotid duplex 03/03/16: Right internal carotid artery has an 80-99% stenosis , left internal carotid artery has a 60-79% stenosis. - 03/03/16: Hematology consult: Patient with heterozygous prothrombin gene mutation. Risk of anti-coagulation thought to outweigh the benefits and recommended continue dual anti-platelet therapy with aspirin and plavix. -MRI OF BRAIN TODAY SHOWED : NEW INFARCT IN RIGHT BASAL GANGLIA WELL MULTIPLE SMALL INFARCTS IN LEFT HEMISPHERE Consult Discharge Plan - Plan Referrals: Brandi Yanes MD [Primary Care Provider] -
[2016-05-27] MEDS: Insulin DETEMIR 100 UNIT/ML X5UNITS SQ SCH (21:56)
[2016-05-28 05:20] LABS: Basophils # 0.1 K/mcL (0.0-0.2); Basophils % 0.8 %; Eosinophils # 0.3 K/mcL (0.0-0.6); Eosinophils % 4.2 %; Hemoglobin 13.5 g/dL (12.9-16.9); Immature Granulocytes % 0.2 % (0-4); Lymphocytes # 1.4 K/mcL (0.6-4.6); Lymphocytes % 21.7 %; Mean Corpuscular HGB Conc 33.8 g/dL (31.6-35.5); Mean Corpuscular Hemoglobin 29.6 pg (28.0-33.3); Mean Corpuscular Volume 87.7 fL (83.0-100.0); Mean Platelet Volume 9.1 fL (9.4-12.4); Monocytes # 0.6 K/mcL (0.0-1.3); Monocytes % 9.5 %; Neutrophils # 4.2 K/mcL (1.6-8.9); Platelet Count 185 K/mcL (140-400); Red Blood Count 4.56 M/mcL (4.19-5.50); Red Cell Distribution Width 13.5 % (11.5-14.5); Segmented Neutrophils % 63.6 %
[2016-05-28 05:46] LABS: BUN/Creatinine Ratio 15 (6-26); Blood Urea Nitrogen 19 mg/dL (8-26); Calcium 9.1 mg/dL (8.6-10.8); Carbon Dioxide 22 mEq/L (19-29); Chloride 108 mEq/L (98-109); Glucose 121 mg/dL (70-99); Osmolality,Calculated 292 (280-300); Potassium 4.5 mEq/L (3.5-4.5); Sodium 139 mEq/L (136-145); eGFR For African Americans > 60 (> 60); eGFR For Non-African Americans 58 (> 60)
[2016-05-28] MEDS: Insulin LISPRO 300 UNITS/3 ML VIAL SQ SCH ×4 (08:05→20:12)
[2016-05-28] MEDS: Aspirin 81 MG TAB.CHEW PO SCH (08:06)
--- NOTE | 2016-05-28 08:22 | Internal Med Progress Note ---
Date of Encounter: 05/28/16 Time of Encounter: 08:20 - Assessment and plan (1) Multiple cerebral infarctions Current Visit: Yes Status: Acute Assessment and plan: Current cerebral infarction/TIA: -First episode in January 2016. -Completely worked up except JAMARCUS and aortography. -Neurologically on the board. -JAMARCUS/a repeat carotid ultrasound is ordered. -At this point patient is asymptomatic. -Failure of aspirin/Plavix. -May need Coumadin/NOAC but will discuss with neurology. (2) Prothrombin [id number] mutation Current Visit: Yes Status: Chronic Assessment and plan: Hematology oncology on the board and we will follow their recommendation. (3) Type 2 diabetes mellitus Current Visit: Yes Status: Chronic Assessment and plan: Before meals and at bedtime monitoring of the sugar. We will give insulin according to his POC Medical decision making: This patient has a [id number] risk of worsening neurological symptoms in spite of being on appropriate medication. Qualifiers: Diabetes mellitus complication status: with circulatory complication Diabetes mellitus complication detail: with other circulatory complications Diabetes mellitus senior care insulin use: with long term care phlebotomist use Qualified Code(s) : E11.59 - Type 2 diabetes mellitus with other circulatory complications; Z79.4 - retirement (current) use of insulin - Subjective Interval history: Patient seen and examined. Chart reviewed. Patient does not have any slurred speech. Patient denies any weakness, numbness, incontinence or diarrhea. He is very concerned regarding the possibility of for multiple strokes. - Constitutional Vitals: Temp Pulse Resp BP Pulse Ox 98.4 F 52 15 156/78 96 05/28/16 06:38 05/28/16 06:38 05/28/16 06:38 05/28/16 06:38 05/28/16 08:00 General appearance: Present: A&O X 3, pleasant, no acute distress - Head Head exam: Present: atraumatic, normocephalic - Eye Eye exam: Present: PERRL, conjuntiva pink, sclera anicteric Pupils: Present: PERRL - Neck Neck exam general surgery: Present: supple, trachea midline. Absent: lymphadenopathy - Respiratory Respiratory exam: Present: CTAB. Absent: accessory muscle use, rales, rhonchi, wheezes - Cardiovascular Cardiovascular exam: Present: RRR, +S1, +S2. Absent: diastolic murmur, gallop, rubs, systolic murmur - GI/Abdominal GI/Abdominal exam: Present: normal bowel sounds, soft, no peritoneal signs. Absent: distended, tenderness - Extremities Exam Extremities exam: Present: warm, radial pulses palpable and symetrical. Absent : calf tenderness, cyanotic, pedal edema - Neurological Exam Neurological exam: Present: CN II-XII intact, oriented X3, no focal deficits. Absent: pronater drift, facial droop, speech deficit - Skin Skin exam: Present: dry, intact Internal Medicine: Result - Labs CBC & Chem 7: 05/28/16 04:42 05/28/16 04:42 Labs: Short CBC 05/28/16 Range/Units 04:42 WBC 6.6 (4.3-11.1) K/mcL Hgb 13.5 (12.9-16.9) g/dL Hct 40.0 (37.5-50.1) % Plt Count 185 (140-400) K/mcL Neutrophils # 4.2 (1.6-8.9) K/mcL BMP 05/28/16 04:42 Sodium 139 Potassium 4.5 Chloride 108 Carbon Dioxide 22 BUN 19 Creatinine 1.23 Glucose 121 H Calcium 9.1 - ABG Interpretation ABG results: PT/INR, D-dimer PT 11.5 Seconds (9.4-12.1) 05/27/16 08:50 - Impressions Impressions Brain MRI 05/27/16 12:01 IMPRESSION: 1. Small, acute right caudate head lacunar infarct. 2. Numerous, small foci of acute infarct in the left centrum semiovale and left frontal and parietal lobes. These are in the left MCA vascular territory distribution. 3. Mild generalized volume loss and mild chronic microvascular ischemic disease are unchanged. D/ / 05/27/2016 14:53:18 Eben Kenyon MD / heath Interpreting Provider: Eben Kenyon MD Consult Discharge Plan - Plan Referrals: Brandi Yanes MD [Primary Care Provider] -
--- NOTE | 2016-05-28 14:00 | Electrocardiograph Report ---
[address] [address] Test Date: 2016-05-27 Pat Name: David Smith Department: 105 Room: 2NE16 Gender: M Chute Greaser: : 1945 Requested By: Kuldip Rodriguez Order Number: [id number] Reading MD: Kathrine Reyes Measurements Intervals Dunlap Rate: 54 P: 11 MS: 175 QRS: 17 QRSD: 130 T: -1 QT: 422 QTc: 408 Interpretive Statements SINUS BRADYCARDIA RIGHT BUNDLE BRANCH BLOCK Electronically Signed On 05-28-2016 13:58:51 EST by Kathrine Reyes
--- NOTE | 2016-05-28 14:41 | Carotid Imaging Report ---
Carotid Duplex Patient Name:David Smith Order Number:[id number] Procedure Date:05/28/2016 Date:1945ge:71 yrs Gender:Male Lt BP:156 / 78 mmHg Rt.BP:156 / 78 mmHgHeart Rate: Location:[facility] Room #: 2NE16 Supervisor [employer] Hat Production:Cynthia Diane DAJA Referring MD:Husam Hutchins MD bell cleaner:Brandi Argueta MD Reading MD:Richar Baig MD , FACS Primary Indications:Cerebral vascular accident Risk Factors Yes/No Hypertension Yes Hypercholesterolemia Yes Diabetes Yes Hx of TIA Yes Hx of CAD/PTCA Yes Previous Vascular Surgery Yes Impressions: Findings: Left carotid system is essentially normal. Findings: Left proximal ICA has a severe, 60-79% stenosis. Findings Prior Intervention: The patient has undergone the following procedure: endarterectomy of the internal carotid artery on the right. Carotid Duplex: Right: The right proximal common carotid artery has a PSV of 101 cm/s and a EDV of 15 cm/s. The right mid common carotid artery has a PSV of 111 cm/s and a EDV of 16 cm/s. The right distal common carotid artery has a PSV of 91 cm/s and a EDV of 12 cm/s. There is nonstenotic plaque in the right bifurcation with a PSV of 78 cm/s and a EDV of 15 cm/s. There is irregular heterogeneous plaque. The right proximal internal carotid artery has a PSV of 63 cm/s and a EDV of 11 cm/s. The right mid internal carotid artery has a PSV of 64 cm/s and a EDV of 17 cm/s. The right distal internal carotid artery has a PSV of 77 cm/s and a EDV of 16 cm/s. The right eca has a PSV of 79 cm/s and a EDV of 7 cm/s. The right vertebral artery has a PSV of 52 cm/s and a EDV of 14 cm/s. Left: The left proximal common carotid artery has a PSV of 97 cm/s and a EDV of 13 cm/s. The left mid common carotid artery has a PSV of 105 cm/s and a EDV of 13 cm/s. The left distal common carotid artery has a PSV of 89 cm/s and a EDV of 18 cm/s. There is nonstenotic plaque in the left bifurcation with a PSV of 67 cm/s and a EDV of 17 cm/s. There is irregular heterogeneous plaque. There is nonstenotic plaque in the left proximal internal carotid artery with a PSV of 96 cm/s and a EDV of 26 cm/s. There is irregular heterogeneous plaque. There is 60-79% stenosis in the left mid internal carotid artery with a PSV of 164 cm/s and a EDV of 49 cm/s. There is irregular heterogeneous plaque. There is 60-79% stenosis in the left distal internal carotid artery with a PSV of 138 cm/s and a EDV of 37 cm/s. There is irregular heterogeneous plaque. The left eca has a PSV of 103 cm/s and a EDV of 10 cm/s. The left vertebral artery has a PSV of 41 cm/s and a EDV of 10 cm/s. Prior Study: Changes noted compared to prior study dated: 03/03/2016. PREV RT ICA 80-99%(S/P RIGHT CEA) PREV LEFT ICA 60-79%. Carotid Results Right PSV EDV Assessment Proximal CCA 101 15 Normal Mid CCA 111 16 Normal Distal CCA 91 12 Normal Bifurcation 78 15 Non Stenotic Plaque Proximal ICA 63 11 Normal Mid ICA 64 17 Normal Distal ICA 77 16 Normal ECA 79 7 Normal Vertebral Artery 52 14 Normal Left PSV EDV Assessment Proximal CCA 97 13 Normal Mid CCA 105 13 Normal Distal CCA 89 18 Normal Bifurcation 67 17 Non Stenotic Plaque Proximal ICA 96 26 Non Stenotic Plaque Mid ICA 164 49 60-79% stenosis Distal ICA 138 37 60-79% stenosis ECA 103 10 Normal Vertebral Artery 41 10 Normal Ratio's Right ICA/CCA Ratio: 0.70 ICA/CCA Values: 77/111 Left ICA/CCA Ratio: 1.60 ICA/CCA Values: 164/105 Updated by Richar Baig MD, FACS on 05/28/2016 2:35:37 PM Richar Baig MD electronically signed on 05/28/2016 2:36:13 PM with status of Final
--- NOTE | 2016-05-28 16:06 | Vascular/Endovas Progress Note ---
Date of Encounter: 05/28/16 Time of Encounter: 16:03 - Assessment and plan (1) CVA (cerebrovascular accident) Current Visit: Yes Status: Acute Numerous small foci of acute infarction in left hemisphere particularly in the frontal and parietal region. Small area of acute lacunar foci at the right caudate area Due to the fact of the recent successful right carotid endarterectomy and that he has multiple foci on the MRI of infarction in the left hemisphere this would suggest a more central circulation or cardiac source. Of note the MRA performed in January did not demonstrate any significant left carotid system stenosis. I will order a repeat carotid artery duplex scan to reevaluate this carotid system. If all other workup is negative such as transesophageal echocardiogram and other testing as deemed necessary please inform me and I would then consider the patient for a formal arch aortogram and catheter based selective carotid artery angiogram to rule out a potential occult lesion that is not apparent on these noninvasive modalities. Qualifiers: CVA mechanism: embolism Precerebral and cerebral artery: middle cerebral artery Laterality of affected vessel: left Qualified Code(s): I63.412 - Cerebral infarction due to embolism of left middle cerebral artery (2) Prothrombin [id number] mutation Current Visit: Yes Status: Chronic Hematology will address issue (3) Type 2 diabetes mellitus Current Visit: Yes Status: Chronic Qualifiers: Diabetes mellitus complication status: with circulatory complication Diabetes mellitus complication detail: with other circulatory complications Diabetes mellitus jail insulin use: with jail use Qualified Code(s) : E11.59 - Type 2 diabetes mellitus with other circulatory complications; Z79.4 - meterman (current) use of insulin - Subjective Interval history: no new complaints - Physical Examination General: Present: Conversant, No Apparent Distress, Well developed, Well nourished HEENT: Present: Atraumatic, Normocephaly Neuro: Present: Alert and responsive, No focal deficits noted, Cranial nerves grossly intact Results 05/28/16 04:42 05/28/16 04:42 Lab Results, Last 24 hours 05/28/16 05/28/16 04:42 04:42 WBC 6.6 Hgb 13.5 Hct 40.0 Plt Count 185 Sodium 139 Potassium 4.5 Chloride 108 Carbon Dioxide 22 BUN 19 Creatinine 1.23 Glucose 121 H Calcium 9.1 - Imaging / Other Tests Non Invasive Vascular Testing: image reviewed (duplex shows 60-79% left carotid stenosis(same as Feb 2016 duplex)) Consult Discharge Plan - Plan Referrals: Brandi Yanes MD [Primary Care Provider] -
[2016-05-28] MEDS: Insulin DETEMIR 100 UNIT/ML X5UNITS SQ SCH (20:12)
[2016-05-29 06:21] LABS: Basophils # 0.1 K/mcL (0.0-0.2); Basophils % 0.6 %; Eosinophils # 0.3 K/mcL (0.0-0.6); Hematocrit 39.4 % (37.5-50.1); Hemoglobin 13.9 g/dL (12.9-16.9); Immature Granulocytes % 0.1 % (0-4); Lymphocytes # 1.5 K/mcL (0.6-4.6); Lymphocytes % 19.8 %; Mean Corpuscular HGB Conc 35.3 g/dL (31.6-35.5); Mean Corpuscular Hemoglobin 30.8 pg (28.0-33.3); Mean Corpuscular Volume 87.2 fL (83.0-100.0); Mean Platelet Volume 9.5 fL (9.4-12.4); Monocytes # 0.7 K/mcL (0.0-1.3); Monocytes % 8.7 %; Neutrophils # 5.2 K/mcL (1.6-8.9); Nucleated Red Blood Cells 0.3 /100 WBC (0); Platelet Count 186 K/mcL (140-400); Red Blood Count 4.52 M/mcL (4.19-5.50); Red Cell Distribution Width 13.6 % (11.5-14.5); Segmented Neutrophils % 66.8 %
[2016-05-29 06:41] LABS: Albumin 3.4 g/dL (3.5-5.0); Albumin/Globulin Ratio 1.1 (1.1-2.2); Bilirubin,Total 0.6 mg/dL (0.2-1.2); Calcium 9.2 mg/dL (8.6-10.8); Globulin 3.2 g/dL (2.4-3.5); Potassium 4.4 mEq/L (3.5-4.5); Total Protein 6.6 g/dL (6.0-8.3)
[2016-05-29] MEDS ORDERED: 0.9 % Sodium Chloride 500 ML IVC ONE (09:33)
[2016-05-29] MEDS ORDERED: Tetracaine/Benzocaine/Butamben 200MG/SPRAY (100SPY/BOT) MM ONE (09:33)
[2016-05-29] MEDS: *HR* FentaNYL (PF) 100 MCG/2 ML VIAL IVP PRN ×2 (10:15→10:20)
[2016-05-29] MEDS: *HR* Midazolam HCl 5 MG/5 ML VIAL IVP PRN ×2 (10:15→10:20)
--- NOTE | 2016-05-29 12:48 | ECHO - Doppler Report ---
Transesophageal Echocardiogram Name: David Smith Date of Study: 05/29/2016 Date: 1945 Ht: 65.0in Medical Record#: [id number] Age: 71 Wt: 223.0lb Gender: Male BSA: 2.07 Order #: [id number] Location: [facility] Room #: 2NE16 Reading Physician: Junior Arias DO, [facility] Broomcorn Scraper: Shalonda Romano RDCS, RVT Ordering Physician: Martina Teixeira MD Primary Physician: Brandi Argueta MD Indications: Cerebrovascular Accident Impressions: LVEF 60%. Normal LV size and function. The right ventricle was normal in size and systolic function. LA appendage is normal in appearance. No thrombus. No significant valvular dysfunction. No evidence of patent foramen ovale or intra-cardiac shunting with agitated saline. No significant plaque formation in the thoracic aorta. No cardiac cause of stroke identified. Left Ventricular Wall Motion: Transesophageal Echo Findings All wall segments showed normal motion. Medication Given: Time Medication Dose Units Route 10:15 Versed 2 mg IV 10:15 Fentanyl 25 mcg IV 10:20 Versed 2 mg IV 10:20 Fentanyl 25 mcg IV Contrast Type Amount Agitated saline 10 Findings: Study Quality * Technically adequate exam. ECG Findings * Sinus Arrhythmia Left Ventricle * LVEF 60%. * Normal LV size and function. Right Ventricle * The right ventricle was normal in size and systolic function. Left Atrium * Mildly dilated left atrium. * LA appendage is normal in appearance. No thrombus. Right Atrium * Mildly dilated right atrium. Aortic Valve * The aortic valve is tricuspid. * Normal structure and function. * No aortic stenosis. * No aortic regurgitation. Mitral Valve * Normal structure. * Trace mitral regurgitation. * No mitral stenosis. Tricuspid Valve * Normal structure and function. * No tricuspid regurgitation. * Unable to estimate RVSP due to lack of TR. Pulmonic Valve * Normal structure and function. * No pulmonic regurgitation. Aorta * The aortic root is not dilated. Normal appearing ascending, arch, and descending thoracic aorta. No significant plaque formation. Pericardium * No pericardial effusion. Pulmonary Artery * Normal pulmonary artery. Interatrial Septum * No evidence of patent foramen ovale or intracardiac shunting with agitated saline. Procedure Summary: After explaining the risks, benefits, and alternatives of the procedure to the patient in detail and answering all questions to satisfaction, an informed consent was obtained in writing. The patient was NPO for the six hours prior to the procedure. The patient denied dysphagia, odynophagia, and loose teeth. The patient was monitored with periodic automated blood pressures and continuous pulse oximetry and telemetry. Continuous oxygen was administered by MT. The patient was placed in the full upright position and the posterior oropharynx was anesthetized as above and complete suppression of the gag reflex was obtained. The patient was then placed in the left lateral decubitus position, the neck was flexed, and a bite block was placed in the patient's mouth. IV sedation was administered. Once adequate sedation was achieved, a well-lubricated anteflexed multipoint intraesophageal echocardiographic probe was inserted into the midline posterior oropharynx. Gentle pressure was applied as the patient swallowed and the esophagus was intubated without difficulty. The scope was advanced to the mid esophagus without encountering resistance. Images were obtained from the mid and upper esophagus. Images from the gastric globe were obtained. The intra-atrial septum was assessed by color-flow Doppler and agitated saline. The scope was then rotated approximately 180 degrees and withdrawn, visualizing the length of the aorta. The scope was then slowly withdrawn as the patient was continually suctioned. The patient tolerated the procedure well. Complications: None History: Hypertension Diabetes Hypercholesteremia Years 33 Packs 2 Family History of CAD History of CAD/PTCA Myocardial Infarction Previous Echo02/10/2016 BP 135 / 71 Updated by Junior Arias DO, FACC, HOLLI, PERLA on 05/29/2016 12:41:24 PM electronically signed on 05/29/2016 12:42:41 PM with status of Final Wall Motion Garcia: 1=Normal, 2=Hypokinesis, 3=Akinesis, 4=Dyskinesis, 5=Aneurysmal, 6=Hyperkinetic, X=Not Visualized (Blank)=Missing Wall MotionIndex JAMARCUS Total of all scored johnson 17 Index Divided by ---- = 1 Total number of johnson scored 17
[2016-05-29] MEDS ORDERED: Heparin 1,000 UNITS/500 mL NS 500 ML ONE (14:00)
[2016-05-29] MEDS ORDERED: *HR* Heparin 10,000 UNIT/10 ML VIAL ONE (14:00)
[2016-05-29] MEDS ORDERED: 0.9 % Sodium Chloride 1,000 ML ONE ×2 (14:00→14:10)
--- NOTE | 2016-05-29 14:11 | Pre-Sedation Evaluation ---
Pre-sedation evaluation - Pre-sedation checklist Date of procedure: 05/29/16 Procedure: Transesophogeal Echocardiogram Recent Vitals: Last Vital Signs Temp 97.6 F 05/29/16 11:48 Pulse 50 05/29/16 11:48 Resp 15 05/29/16 11:48 BP 125/84 05/29/16 11:48 Pulse Ox 98 05/29/16 11:48 H&P (including ROS) documented in medical record: Yes Previous reaction to sedatives/anesthetics: No Dietary Status: NPO after Midnight Dentition: No loose teeth or bridges Possible difficult airway: No ASA Classification *see protocol: CLASS III-Severe systemic disease Plan of Care: Pt appropriate candidate for procedure/moderate/conscious sedation , Risks/benefits of procedure/sedation discussed w/ patient/family
--- NOTE | 2016-05-29 14:12 | Internal Med Progress Note ---
<aDvid Winslow - Last Filed: 05/29/16 14:44> Date of Encounter: 05/29/16 Time of Encounter: 08:45 - Assessment and plan (1) CVA (cerebrovascular accident) Current Visit: Yes Status: Acute Assessment and plan: patient has multiple microinfarcts along the frontal and parietal distributions. patient has been asymptomatic since admission. He had JAMARCUS performed this AM. He did not have any thrombi. Carotid duplex suggest severe stenosis of the left ICA. Patient is currently having an aortagram. 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 I also spoke with Dr. Casper in Neurology. Given his failure on ASA and Plavix they have recommended Anticoagulation. However if source is found may need surgical intervention instead. ' Plan will be to start anticoagulation with heparin gtt once safely able after return from aortogram and if no definitive source is identified. Additionally if no source is identified we will plan to discharge patient with oral anticoagulation with prolonged cardiac monitoring to rule out occult atrial fribrillation as this can be a cause of cryptogenic strokes. Qualifiers: CVA mechanism: embolism Precerebral and cerebral artery: middle cerebral artery Laterality of affected vessel: left Qualified Code(s): I63.412 - Cerebral infarction due to embolism of left middle cerebral artery (2) Carotid stenosis Current Visit: Yes Status: Acute Assessment and plan: patient will have an aortagram this afternoon. Will follow up with results and Vascular surgeries recommendations. Appreciate their asssistance with this patient. 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 (4) Type 2 diabetes mellitus Current Visit: Yes Status: Chronic Assessment and plan: Before meals and at bedtime monitoring of the sugar. We will give insulin according to his POC Qualifiers: Diabetes mellitus complication status: with circulatory complication Diabetes mellitus complication detail: with other circulatory complications Diabetes mellitus exterminator helper termite insulin use: with nursing home use Qualified Code(s) : E11.59 - Type 2 diabetes mellitus with other circulatory complications; Z79.4 - manager long term care (current) use of insulin (5) TA (acute kidney injury) Current Visit: Yes Status: Acute Assessment and plan: mild increase in Serum Creatinine. Etiology unclear at this time. Has not recieved contrast or nephrotoxic agents. denies difficulty urinating. I will give him some IV fluids. Follow SCR. Strict I's and O's (6) DVT prophylaxis Current Visit: Yes Status: Acute Assessment and plan: currently has EPCDs ordered can Dc if anticoagulation is ordered. - Subjective Interval history: Today the patient states that he is feeling better. He states he has not had recurrence of slurred speech since admission to the hospital. He denies any focal motor or sensory deficit. He denies any visual changes or dizziness. He has no new complaints today. - Constitutional Vitals: Temp Pulse Resp BP Pulse Ox 97.6 F 50 15 125/84 98 05/29/16 11:48 05/29/16 11:48 05/29/16 11:48 05/29/16 11:48 05/29/16 11:48 General appearance: Present: A&O X 3, pleasant, no acute distress - Head Head exam: Present: atraumatic, normocephalic - Eye Eye exam: Present: PERRL, conjuntiva pink, sclera anicteric Pupils: Present: PERRL - Neck Neck exam general surgery: Present: supple, trachea midline. Absent: lymphadenopathy - Respiratory Respiratory exam: Present: CTAB. Absent: accessory muscle use, rales, rhonchi, wheezes - Cardiovascular Cardiovascular exam: Present: RRR, +S1, +S2. Absent: diastolic murmur, gallop, rubs, systolic murmur - GI/Abdominal GI/Abdominal exam: Present: normal bowel sounds, soft, no peritoneal signs. Absent: distended, tenderness - Extremities Exam Extremities exam: Present: warm, radial pulses palpable and symetrical. Absent : calf tenderness, cyanotic, pedal edema - Neurological Exam Neurological exam: Present: alert, CN II-XII intact, normal gait, oriented X3, reflexes normal, no focal deficits, strengths equal and symetr throughout. Absent: motor sensory deficit, pronater drift, facial droop, speech deficit - Skin Skin exam: Present: dry, intact Internal Medicine: Result - Labs CBC & Chem 7: 05/29/16 05:33 05/29/16 05:33 Labs: Short CBC 05/29/16 Range/Units 05:33 WBC 7.7 (4.3-11.1) K/mcL Hgb 13.9 (12.9-16.9) g/dL Hct 39.4 (37.5-50.1) % Plt Count 186 (140-400) K/mcL Neutrophils # 5.2 (1.6-8.9) K/mcL BMP 05/29/16 05:33 Sodium 138 Potassium 4.4 Chloride 106 Carbon Dioxide 24 BUN 22 Creatinine 1.49 H Glucose 135 H Calcium 9.2 Liver Function 05/29/16 Range/Units 05:33 Total Bilirubin 0.6 (0.2-1.2) mg/dL AST 17 (5-34) Units/L ALT 24 (0-55) Units/L Alkaline Phosphatase 69 (38-126) Units/L Albumin 3.4 L (3.5-5.0) g/dL - ABG Interpretation ABG results: PT/INR, D-dimer PT 11.5 Seconds (9.4-12.1) 05/27/16 08:50 Consult Discharge Plan - Plan Referrals: Brandi Yanes MD [Primary Care Provider] - <Kuldip Rodriguez P - Last Filed: 05/29/16 17:37> - Assessment and plan (1) Multiple cerebral infarctions Current Visit: Yes Status: Acute (2) Prothrombin [id number] mutation Current Visit: Yes Status: Chronic (3) Type 2 diabetes mellitus Current Visit: Yes Status: Chronic Qualifiers: Diabetes mellitus complication status: with circulatory complication Diabetes mellitus complication detail: with other circulatory complications Diabetes mellitus nursing home insulin use: with exterminator helper termite use Qualified Code(s) : E11.59 - Type 2 diabetes mellitus with other circulatory complications; Z79.4 - penitentiary (current) use of insulin - Constitutional Vitals: Temp Pulse Resp BP Pulse Ox 97.6 F 46 15 143/79 98 05/29/16 15:12 05/29/16 15:12 05/29/16 15:12 05/29/16 15:12 05/29/16 15:12 Internal Medicine: Result - Labs CBC & Chem 7: 05/29/16 05:33 05/29/16 05:33 Labs: Short CBC 05/29/16 Range/Units 05:33 WBC 7.7 (4.3-11.1) K/mcL Hgb 13.9 (12.9-16.9) g/dL Hct 39.4 (37.5-50.1) % Plt Count 186 (140-400) K/mcL Neutrophils # 5.2 (1.6-8.9) K/mcL BMP 05/29/16 05:33 Sodium 138 Potassium 4.4 Chloride 106 Carbon Dioxide 24 BUN 22 Creatinine 1.49 H Glucose 135 H Calcium 9.2 Liver Function 05/29/16 Range/Units 05:33 Total Bilirubin 0.6 (0.2-1.2) mg/dL AST 17 (5-34) Units/L ALT 24 (0-55) Units/L Alkaline Phosphatase 69 (38-126) Units/L Albumin 3.4 L (3.5-5.0) g/dL - ABG Interpretation ABG results: PT/INR, D-dimer PT 11.5 Seconds (9.4-12.1) 05/27/16 08:50 - Attending Attestation I examined this patient and my medical decision-making was reviewed with the AGRI BUSINESS AGENT/PA/Advanced Practice Nurse/Resident Physician. I agree with the documented findings, disposition and treatment plan as described except to the extent set forth below. spoke with Dr Casper ( Neurology) HOme tomorrow with ASA 81 mg and Xarelto in view of recurrent CVA Outpatient Loop monitor as per cardiology.
[2016-05-29] MEDS ORDERED: 0.9 % Sodium Chloride 1,000 ML IVC SCH (14:15)
[2016-05-29] MEDS ORDERED: *HR* Midazolam HCl 2 MG/2 ML VIAL ONE (14:25)
[2016-05-29] MEDS ORDERED: *HR* FentaNYL (PF) 100 MCG/2 ML VIAL ONE (14:25)
[2016-05-29] MEDS: Insulin LISPRO 300 UNITS/3 ML VIAL SQ SCH ×4 (14:32→21:53)
--- NOTE | 2016-05-29 14:54 | Procedure Note ---
Date of procedure: 05/29/16 Pre-op diagnosis: recurrent CVA Post-op diagnosis: same Procedure: Arch aortogram Left carotid angiogram Anesthesia: MAC Surgeon: Richar Baig Condition: stable Disposition: floor (do not recommend left carotid endarterectomy on basis of angiogram findings)
[2016-05-29] MEDS ORDERED: *HR* Morphine 2 MG/ML SYRINGE IVP PRN (14:56)
[2016-05-29] MEDS ORDERED: Ondansetron 4 MG/2 ML VIAL IVP PRN (14:56)
[2016-05-29] MEDS ORDERED: *HR* HYDROcodone/Acet 5/325 mg TABLET PO PRN (14:56)
[2016-05-29] MEDS ORDERED: Acetaminophen 325 MG TABLET PO PRN (14:56)
--- NOTE | 2016-05-29 15:20 | Invasive Diagnostic Lab Proc ---
Name: David Smith Date of Study: 05/29/2016 Date: 1945 Ht: 165.0 in Medical Record#: [id number] Age: 71 Wt: 100 lb Gender: Male BSA: 2.06 Order #: [id number] BMI: 36.73 Physicians Performing MD: Richar Baig MD, FACS Referring MD: Referring MD: Staff Name Position Time In Sraa De RT (R) Monitor Sara De RT (R) Scrub Yadi Watts RN Laundry Sorter Indications TIA Procedures Performed PLACE CATH CAROTID/INOM ART Pre-Procedure Checklist Informed consent is complete signed and on chart. H\\T\\P is on chart. ID band is on and ID verified with patient. Patient NPO for procedure The procedure was described for the patient and questions were answered. Blood Pressure: 146/69 ECG is on chart. Rhythm: NSR Plan of Care Patient will tolerate the procedure without complications. Adequate level of comfort will be maintained. Hemodynamics will remain stable Patient will recover from procedure without complications. Respiratory function will be maintained. Cardiac rhythm will remain stable. Patient temperature will be maintained. Patient and/or family have verbalized understanding of the procedure. Patient Education Intravenous Access Time IV Size Location DC'd Fluid/Drip Rate Units RN 14:24 20g 1 1/4" Patent On Arrival Rt Arm 0.9NaCl 25 ml/hr Yadi Watts RN Allergies No Known Allergies Vital Signs Time BP Systolic BP Diastolic HR O2 Sats ASA 02:25 PM 146 69 54 96 02:31 PM 02:31 PM Procedure Medications Time Medication Dose Units Method Route 02:30 PM Lidocaine 2% 10 ml Subcutaneous 02:30 PM Oxygen 2 L/min nasal cannula 02:30 PM Versed 1 mg Intravenous 02:30 PM Fentanyl 50 mcg Intravenous ASA Classification: CLASS II- Mild systemic disease (i.e. well-controlled diabetes, hypertension, asthma, cigarette smoking) Birgit Score Preprocedure Postprocedure Activity 2- Moves 4 extremities sustained head lift Activity 2- Moves 4 extremities sustained head lift Circulation 2- SBP +/= 20 points of pre-anesthetic level Circulation 2- SBP +/= 20 points of pre-anesthetic level Consciousness 2- Awake and alert oriented x 3 Consciousness 2- Awake and alert oriented x 3 O2 Saturation 2- Able to maintain O2 satruation of 92% on room air O2 Saturation 2- Able to maintain O2 satruation of 92% on room air Respiratory 2- Able to deep breathe and cough well Respiratory 2- Able to deep breathe and cough well Total Score 10 Total Score 10 Contrast: Isovue 300- 150ml Contrast Amount: 49 ml Fluoro Dose: 147 mGy Procedure Log Time Note Entered By 02:27 PM Pt arrived to bottle label inspector 2 at 14:27 [email or web address] 02: PM Physician arrived 14: [email or web address] 02:27 PM Meet and darvin completed [email or web address] 02:27 PM Sign in performed according to hospital policy. [email or web address] 02: PM Procedure start 14: [email or web address] 02: PM Case delayed: No tsites :29 PM Xiomara Longoria RT (R) Position: Monitor Time in: 14: tsites 02:30 PM Sara De RT (R) Position: Scrub Time in: 14: tsites 02:30 PM Yadi Watts RN Position: Laundry Sorter Time in: 14:30 tsites 02:30 PM 14:30 10 ml Lidocaine 2% to right groin Subcutaneous Given By Richar Baig MD, FACS tsites 02:30 PM 14:30 Oxygen at 2 L/min per nasal cannula by Yadi Watts RN tsites 02:30 PM 14:30 Versed 1 mg Intravenous Given by Yadi Watts RN tsites 02: PM 14:30 Fentanyl 50 mcg Intravenous Given by Yadi Watts RN tsites 02: PM Time: 14:31 Is patient comfortable and pain free?: Yes tsites : PM Time: 14:31LOC: 4 = Oriented but drowsy tsites 02:31 PM Patient charges- Angio tray pack, Pulse Oximetry and ACIST tubing and transducer tsites 02:31 PM Access obtained in the right femoral artery by percutaneous puncture. 5 Fr. 10 cm Terumo [place] sheath placed in right femoral artery tsites 02:31 PM 0.035 180cm J-wire wire utilized to assist with catheter placement tsites 02:31 PM 5Fr pigtail catheter tsites 02:32 PM Aortic arch angiography performed in [facility] contrast injected 10/25 mls. tsites 02:34 PM Catheter removed tsites 02:34 PM 5Fr Bentley 2 catheter inserted over the wire tsites 02:36 PM Left carotid angiography performed in AP contrast injected 5/7 mls. tsites 02:37 PM Left carotid angiography performed in lateral contrast injected 5/7 mls. tsites 02:39 PM Left carotid angiography performed in [facility] contrast injected 3/5 mls. tsites 02:40 PM Left carotid angiography performed in [place] contrast injected 3/5 mls. tsites 02:42 PM Left carotid angiography performed in [place] contrast injected 3/5 mls. tsites 02:44 PM wire reinserted catheter removed tsites 02:44 PM Procedure completed at 14:44 tsites 02:45 PM Sign Out completed: Radiation Dose 147 mGy Fluoro Time: 2.2 minutes. Isovue 300- 150ml contrast 49 ml given by Richar Baig MD, FACS. Complications: None. Confirmed administered medications:Yes tsites 02:45 PM Isovue 300- 150ml,1 bottle(s) used. tsites 02:46 PM Time: 14:31LOC: 5 = Fully awake and oriented or at pre-proc level tsites 02:49 PM Post Blood Pressure: 133/67 tsites 02:49 PM Post EKG: NSR tsites 02:49 PM 14:49 Post Pulses: Bilateral DP \\T\\ PT 2+. tsites 02:49 PM Information taught: Carotid angiogram tsites 02:49 PM Education needs: Plan of Care, Procedure, and Responsibilities of Patient in Care tsites 02:49 PM Learning barriers: None tsites 02:49 PM Education methods: Verbal tsites 02:50 PM Education evaluation: Able to repeat information tsites 02:50 PM Patient pain level 0/10 tsites 02:55 PM Arterial sheath pulled using manual compression and V+Pad for 15 minutes by Sara De RT (R) tsites 03:05 PM Post Blood Pressure: 138/65 tsites 03:05 PM Post EKG: NSR tsites 03:05 PM 15:05 Post Pulses: Bilateral DP \\T\\ PT 2+. tsites 03:06 PM Site status No bleeding/hematoma - Rt Groin as reported by Sara De RT (R) at 15:05 tsites 03:06 PM Opsite applied tsites 03:07 PM Diagram Region: Cerebrovascular Arteries Anatomical Region: CV-Art60% Lesion in Left Internal Carotid Intervention done: 0 (1=yes, 0=no) tsites 03:08 PM Report given to gerard MUNOZ. Pt taken to [facility], Room # 16 15:08 tsites 03:08 PM Delay to floor: No tsites 03:08 PM Pt taken to [facility] Room# 16 tsites 03:08 PM Family placed in consult room. tsites 03:09 PM Complications: None tsites 03:12 PM Patient out of room 15:12 tsites Peripheral Anatomy Vessel Pathology Lesion Stenosis Aneurysm Diameter Thrombus Type Left Internal Carotid Lesion 60 Post Procedure Information Blood Pressure: 138/65 mmHg Rhythm: NSR Post procedure instructions given Report Given To: [facility] Site Checks Time Location Status Staff Sheath In? Note 3:05:00 PM Rt Sara Recinos RT (R) Pulses Time Site Pre Procedure Post Procedure Note 05/29/2016 2:25:00 PM Bilateral DP \\T\\ PT 2+ 2:49:00 PM Bilateral DP \\T\\ PT 2+ 3:05:00 PM Bilateral DP \\T\\ PT 2+ Updated by Xiomara Longoria RT (R) on 05/29/2016 3:14:19 PM Xiomara Longoria RT electronically signed on 05/29/2016 3:15:21 PM with status of Final
--- NOTE | 2016-05-29 15:44 | Invasive Diagnostic Lab ---
Name: David Smith Date of Study: 05/29/2016 Date: 1945 Ht: 165.0 in Medical Record#: [id number] Age: 71 Wt: 100 lb Gender: Male BSA: 2.06 Order #: [id number] Fluoro: 147 mGy BMI: 36.73 Procedure MD: Richar Baig MD, FACS Referring MD: Brandi Argueta MD Referring MD: Martina Teixeira MD Procedures Performed: PLACE CATH CAROTID/INOM ART Indications: TIA Impressions: The Aortic arch and Ascending aorta are normal in appearance and free of obstructive or ulcerative disease. The Right common carotid, Right external carotid, Right internal carotid, and Left common carotid is/are patent. The Left internal carotid has non-significant disease and no sign of dissection. The left anterior cerebral, middle, and anterior communicating are patent. There is left to right filling of the right anterior cerebral artery via a patent anterior communicating artery. Recommendations: Optimize medical therapy of patient's disease, including anticoagulation therapy. 75 mg Plavix PO daily. Aggressive risk factor modification. Do not recommend left carotid endarterectomy at this time. History/ Risk Factors: Diabetes Dyslipidemia Hypertension Recent [place] Technique: After informed consent was obtained the patient was placed on the angiographic table. The access areas were prepped and draped in the usual sterile fashion. A timeout protocol was observed. Access was obtained in the right femoral artery. The pigtail catheter was advanced over a wire to the aortic arch and images were obtained. The aortic arch is a Type I arch. After the images were reviewed a Bentley 2 catheter was then advanced over a guidewire, selectively placed into the left common carotid and the following images obtained: anterior cerebral, anterior communicating, left common carotid, left external carotid, and left internal carotid. The angiograms were followed from the arterial to the venous phase. The sheath was removed and hemostasis was achieved with the following measures: Manual Pressure and Closure pad. Vessel Findings: * Cerebrovascular Arteries There is a lesion present with 60% stenosis, in the Proximal Left Internal Carotid. The lesion has mild calcification present. No intervention was performed on this Lesion. Lesions: Proximal Left Internal Carotid Stenosis: 60% Total Contrast: Isovue 300- 150ml 49mls Updated by Richar Baig MD, FACS on 05/29/2016 3:38:00 PM Richar Baig MD electronically signed on 05/29/2016 3:40:04 PM with status of Final
--- NOTE | 2016-05-29 16:58 | Neurology Progress Note ---
Date of Encounter: 05/29/16 Time of Encounter: 16:54 Assessment and Plan (1) Multiple cerebral infarctions Current Visit: Yes Status: Acute I agree with the likelihood that we are dealing with multiple left cerebral hemispheric microinfarctions from an embolic source. It is not likely that this is coming from the great vessels. It seems that we have had a cryptogenic event from a cardioembolic source or perhaps coagulopathy. In any regard I agree with anticoagulation at this time. I also recommend considering a hematology consultation for further assessment of a possible coagulopathy. I will reevvaluate this gentleman at your request. Subjective Interval history: Chart was reviewed, the patient was seen and examined. At the current time his back to his normal baseline status. I did review multiple neuroimaging studies including the CT scan of his head, is along with the MRI scan of the brain. I am also presented to the results of the carotid Doppler study, JAMARCUS, and the aortogram performed by Dr. Lorenzo. At this time Mr. Smith is in no acute distress and has no complaints. The aortogram revealed nonsignificant disease involving the left internal carotid artery. The rest of the study was unremarkable. At this point in time we do not have a clear etiology upon which to attribute an embolic source. Certainly it may have been a cardiac source, versus a possible coagulopathy. He also has other stroke risk factors. Objective - Constitutional Vitals: Temp Pulse Resp BP Pulse Ox 97.6 F 46 15 143/79 98 05/29/16 15:12 05/29/16 15:12 05/29/16 15:12 05/29/16 15:12 05/29/16 15:12 - Neurological Exam Sensorimotor examination: Present: intact Motor Examination: Present: full strength in all major muscle groups Motor examination - right side: 5/5: deltoids, biceps, triceps, wrist flexion, wrist extension, lamination builder, hip flexors, tibialis Anterior, quadriceps, toe extension (EHL), plantarflexion Motor examination - left side: 5/5: deltoids, biceps, triceps, wrist flexion, wrist extension, hip flexors, lamination builder, quadriceps, tibialis Anterior, toe extension (EHL), plantarflexion Sensation intact: Present: intact Reflex and gait examination: intact Mental Status Examination: Present: awake, alert, oriented to person, oriented to place, oriented to time, follows commands appropriately, answers questions appropriately, no agnosia, no aphasia, no aproxia Cranial nerve examination: Present: PERRL, EOMI, visual johnson intact, corneal reflexes brisk symmetrically, sensory to face intact, mastication intact, no facial asymmetry is present, no dysarthria, hearing is intact symmetrically, soft palate elevates bilaterally upon phonation, gag reflex intact, flexes SCM and trapezius muscles symmetrically with full power, tongue protrudes midline, no atrophy or facial fasiculations present Cerebellar examination: Present: no dysmetria, performs finger to nose and heel to das symmetrically without ataxia, no gait ataxia, no truncal ataxia, no difficulty with rapid alternating movements Results - Laboratory Findings CBC and BMP: 05/29/16 05:33 05/29/16 05:33 Abnormal lab findings: Abnormal lab results Nucleated RBCs/100 WBC 0.3 /100 WBC (0) H 05/29/16 05:33 Creatinine 1.49 mg/dL (0.72-1.25) H 05/29/16 05:33 Est GFR ( Amer) 56 (> 60) L 05/29/16 05:33 Est GFR (Non-Af Amer) 46 (> 60) L 05/29/16 05:33 Glucose 135 mg/dL (70-99) H 05/29/16 05:33 POC Glucose 142 (58-89) H 05/29/16 07:09 Albumin 3.4 g/dL (3.5-5.0) L 05/29/16 05:33 Consult Discharge Plan - Plan Referrals: Brandi Yanes MD [Primary Care Provider] -
[2016-05-29] MEDS: Aspirin 81 MG TAB.CHEW PO SCH (17:30)
[2016-05-29] MEDS: Insulin DETEMIR 100 UNIT/ML X5UNITS SQ SCH (21:53)
[2016-05-30 05:13] LABS: Basophils % 0.5 %; Eosinophils # 0.3 K/mcL (0.0-0.6); Eosinophils % 3.2 %; Hematocrit 38.4 % (37.5-50.1); Hemoglobin 13.4 g/dL (12.9-16.9); Immature Granulocytes % 0.3 % (0-4); Lymphocytes # 1.5 K/mcL (0.6-4.6); Lymphocytes % 18.6 %; Mean Corpuscular HGB Conc 34.9 g/dL (31.6-35.5); Mean Corpuscular Volume 86.1 fL (83.0-100.0); Mean Platelet Volume 9.4 fL (9.4-12.4); Monocytes # 0.6 K/mcL (0.0-1.3); Monocytes % 8.2 %; Neutrophils # 5.4 K/mcL (1.6-8.9); Platelet Count 187 K/mcL (140-400); Red Blood Count 4.46 M/mcL (4.19-5.50); Red Cell Distribution Width 13.5 % (11.5-14.5); Segmented Neutrophils % 69.2 %
[2016-05-30 05:23] LABS: BUN/Creatinine Ratio 15 (6-26); Blood Urea Nitrogen 17 mg/dL (8-26); Calcium 9.2 mg/dL (8.6-10.8); Carbon Dioxide 22 mEq/L (19-29); Chloride 108 mEq/L (98-109); Glucose 110 mg/dL (70-99); Osmolality,Calculated 288 (280-300); Sodium 138 mEq/L (136-145); eGFR For African Americans > 60 (> 60); eGFR For Non-African Americans > 60 (> 60)
[2016-05-30 05:26] LABS: Potassium 4.6 mEq/L (3.5-4.5)
[2016-05-30] MEDS: Aspirin 81 MG TAB.CHEW PO SCH (08:38)
[2016-05-30] MEDS: Insulin LISPRO 300 UNITS/3 ML VIAL SQ SCH ×2 (08:38→14:15)
--- NOTE | 2016-05-30 10:19 | Discharge Summary ---
Date of Encounter: 05/30/16 Time of Encounter: 10:17 - Discharge Diagnosis (1) CVA (cerebral vascular accident) Priority: Primary Status: Acute Qualifiers: CVA mechanism: embolism Precerebral and cerebral artery: middle cerebral artery Laterality of affected vessel: left Qualified Code(s): I63.412 - Cerebral infarction due to embolism of left middle cerebral artery (2) CVA (cerebrovascular accident) Priority: Primary Status: Acute Qualifiers: CVA mechanism: embolism Precerebral and cerebral artery: anterior cerebral artery Laterality of affected vessel: left Qualified Code(s): I63.422 - Cerebral infarction due to embolism of left anterior cerebral artery (3) Dysarthria Priority: Secondary Status: Resolved (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 (5) Type 2 diabetes mellitus Priority: Secondary Status: Chronic Qualifiers: Diabetes mellitus complication status: with circulatory complication Diabetes mellitus complication detail: with other circulatory complications Diabetes mellitus half-way insulin use: with terminal carman use Qualified Code(s) : E11.59 - Type 2 diabetes mellitus with other circulatory complications; Z79.4 - retirement (current) use of insulin (6) Hypertension Priority: Secondary Status: Chronic Qualifiers: Hypertension type: essential hypertension Qualified Code(s): I10 - Essential (primary) hypertension (7) History of CA (myocardial infarction) Priority: Secondary Status: Chronic (8) Obesity (BMI 30-39.9) Priority: Secondary Status: Chronic - Discharge Medications Prescriptions: Insulin NPH [HumuLIN NPH] 35 unit SQ DAILY #1 vial Home Medications: Aspirin 81 mg PO QAM 02/09/16 [History] Atenolol [Tenormin] 50 mg PO QAM 02/09/16 [History] Insulin NPH Human Isophane [Novolin N] 35 unit SQ QPM 02/09/16 [History] Lisinopril 5 mg PO QAM 02/09/16 [History] Metformin [Glucophage] 500 mg PO BID 02/09/16 [History] Simvastatin [Zocor] 40 mg PO QPM 02/09/16 [History] Fish Oil/Dha/Epa [Fish Oil 1,200 mg Fish Oil] 1 cap PO QPM 03/03/16 [History] Insulin NPH [HumuLIN NPH] 35 unit SQ DAILY #1 vial 05/30/16 [Rx] Rivaroxaban [Xarelto] 20 mg PO 1700 tablet 02/14/17 [Rx] Allergies/Adverse Reactions: Allergies No Known Allergies Allergy (Verified 03/28/16 09:49) - Notes to Outpatient Provider Pt now on Xarelto. He was given information about bleeding risks. Date of admission: 05/29/16 17:38 Primary care physician: Brandi Yanes, Consults: 05/30/16 09:00 Consult to Cardiology [CONS] Routine Comment: Consulting Provider: Cardiology Juju Reason for Consult: Looop recorder placement Call Completed: Yes Discharging clinician: Sunny Loomis Anticipated date of discharge: 05/30/16 - Patient Status Disposition: Home, Self-Care Condition: Good Functional capacity at discharge: independent ambulation Overall status at discharge: patient is back to baseline - Discharge Instructions Follow Up With: Brandi Yanes MD [Primary Care Provider] - Additional Instructions: ACTIVITY: Moderate activity for the next 7 days. No lifting more than 5 pounds ( gallon of milk) for 1 week. BATHING /SHOWERING: Do not remove the large bandage over the site for 2 days. Do not allow the device to get wet for 7-10 days. You may bathe/shower, but do not use soap and water on the site. When bathing, keep the site dry by covering with Saran wrap or a towel. WOUND CARE: The white steri-strips will start to peel away and come off after 14 days, or your doctor will remove them after [address] anything into or on top of the incision. Do not use cotton swabs. Do not use any antibiotic ointment or Vitamin E on the site. REMINDERS: Notify security personnel at the airport that you have a device before you go through airport security screening. When at places with security monitors, such as a grocery store, do not linger near these monitors. It is fine to walk past them in a normal manner. Refer to your owners manual for more specific directions. CARRY YOUR IDENTIFICATION CARD WITH YOU AT ALL TIMES Return to work as instructed per physician Resume driving as instructed per physician Keep all scheduled follow up appointments Resume medications as instructed Contact [facility] ( ) if: You develop excessive bleeding from insertion or wound site not controlled by applying pressure You develop a fever greater than 101 degrees Fahrenheit Your incision becomes reddened at or around the site Your incision develops yellowish or greenish drainage or development of white pimple-like bumps You experience excessive pain You experience muscle switching If you experience chest pain, shortness of breath, dizziness, or extreme tiredness, stop the activity and rest. Please notify [facility] office if you experience any of these symptoms and they are not relieved by rest please call 911! - Diet and Activity Activity: other (See above) Diet: advance to your usual diet Hospital course: Mr. Smith is a 71 year old male with a history of HTN and diabetes and CAD and recent CVA in January presented to ED with slurred speech and R arm paralysis. He was subsequently placed in observation for further evaluation and treatment. Mr. Smith was placed in observation. He had improvement in his neurologic symptoms but MRI showed multiple CVAs - left sided. He was seen by neurology as well. Further work up was pursued including vascular evaluation and JAMARCUS ( which was negative). He was monitored on telemetry and no dysrhythmia was noted. He was also seen by hematology due to prothrombin mutation found. As he was already on ASA and Plavix, it was recommended that he begin anticoagulation and Xarelto was started. As this is considered cryptogenic stroke he had a loop recorder placed prior to discharge. He was educated on the issues with Xarelto including significant bleeding and . He was cautioned about avoiding dangerous behaviors including riding horses. On 05/30/16 he was afebrile with stable vitals. At that time he was discharged home with outpatient follow up. - Time Spent with Patient Total time spent providing and/or coordinating discharge services: 38min - Constitutional Vitals: Temp Pulse Resp BP Pulse Ox 97.5 F L 54 16 142/75 97 05/30/16 08:21 05/30/16 08:21 05/30/16 08:21 05/30/16 08:21 05/30/16 08:21 General appearance: Present: A&O X 3, pleasant, answers questions appropriately - Head Head exam: Present: normocephalic - Eye Eye exam: Present: conjuntiva pink - ENT ENT exam: Present: mucous membranes moist - Respiratory Respiratory exam: Present: CTAB. Absent: rhonchi, wheezes - Cardiovascular Cardiovascular exam: Present: RRR. Absent: tachycardia - GI/Abdominal GI/Abdominal exam: Present: soft. Absent: tenderness - Extremities Exam Extremities exam: Present: warm. Absent: tenderness - Neurological Exam Neurological exam: Present: alert, oriented X3 - Skin Skin exam: Present: dry, warm
--- NOTE | 2016-05-30 10:39 | Cardiology Consult Note ---
<Montrell Zuniga - Last Filed: 05/30/16 11:24> Date of Encounter: 05/30/16 Time of Encounter: 10:34 Assessment and Plan (1) Multiple cerebral infarctions Current Visit: Yes Status: Acute Multiple left cerebral hemispheric microinfarctions from an embolic source. First CVA was 01/2016. He has been evaluated by nephrology, who does not feel it is likely coming from the great vessels. They suspect a cryptogenic event from a cardioembolic source or perhaps coagulopathy--he was found to have prothrombin gene mutation and has been evaluated by hematology. It has been recommended that he start Xarelto for anticoagulation, as he was on ASA and Plavix and still had an event. Carotid doppler showed a severe left ICA stenosis. Aortogram completed by Dr. Baig, no significant disease noted and no intervention is necessary. Cardiology has been consulted to evaluate for loop recorder implantation to determine if pt is having underlying PAF that is the culprit of CVAs. Discussed with Dr. Jaspal Cruz. Loop recorder is appropriate to evaluate for A- Fib, as it may global climate change analyst as far as antiarrhythmics are concerned. Agree with Xarelto for AC. Has not received any doses yet. Will by okay for discharge later today after loop insertion. Follow-up as outpt in 7-10 days for wound check, 4-6 weeks loop check and in [address] Jaspal Cruz. 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 They documented that this should not modify management decisions for arterial thromboembolism, CVA or recurrent TIA. Risk for an arterial event is only 1.3-4 old in carriers of the mutation compared with non-carriers with possibly a stronger association in younger patients. (3) CAD (coronary artery disease) Current Visit: Yes Status: Acute Hx of PCI x 4 per , most recently in 1999, reportedly has PCI of left main, all done at [facility]. Denies any chest pain. EF preserved. Continue ASA, Statin, BB. Qualifiers: Coronary Disease-Associated Artery/Lesion type: zuni artery [place] vs. transplanted heart: zuni heart Associated angina: without angina Qualified Code(s): I25.10 - Atherosclerotic heart disease of zuni coronary artery without angina pectoris (4) Carotid stenosis Current Visit: Yes Status: Ruled-out Carotid doppler showed a severe left ICA stenosis. Aortogram completed by Dr. Baig, no significant disease noted and no intervention is necessary. Hx of Right CEA. Qualifiers: Laterality: left Qualified Code(s): I65.22 - Occlusion and stenosis of left carotid artery Discussion w patient/family: The assessment and plan as outlined above was discussed with the patient and/or family members who expressed understanding and agreement. All questions were answered. Thank you for involving us in the care of your patient. Please call with any questions. I will discuss all the above with Dr. Reyes and make changes as necessary. History of Present Illness Consult date: 05/30/16 Requesting physician: Sb Noe Consult reason: CVA Chief complaint: stroke History of present illness: Mr. Smith is a 71 year old male with PMH of Type 2 DM, HLD, CVA, carotid artery disease s/p right CEA, CAD s/p PCI in remote past that presented with difficulty in speech, found to have multiple left cerebral hemispheric microinfarctions from an embolic source. First CVA was 01/2016. He has been evaluated by nephrology, who does not feel it is likely coming from the great vessels. They suspect a cryptogenic event from a cardioembolic source or perhaps coagulopathy--he was found to have prothrombin gene mutation and has been evaluated by hematology. It has been recommended that he start Xarelto for anticoagulation, as he was on ASA and Plavix and still had an event. Cardiology has been consulted to evaluate for loop recorder implantation. Pt denies any history of heart arrhythmias and denies any palpitations. JAMARCUS showed no abnormalities or explanation for CVAs. Aortogram by Dr. Baig did not reveal any carotid disease that needs intervened on. It was completed after report of severe left ICA carotid stenosis on carotid doppler. Past Med Surg Social Fam HX - Past Medical History Medical history: arthritis, diabetes, GERD, hyperlipidemia, hypertension, myocardial infarction, renal disease, other Psychiatric history: no psych history - Past Surgical History Surgical History: orthopedic, other, other - Social History Smoking Status: Former smoker Smokeless Tobacco Status: No Alcohol use: none Drug use: none - Family History Father Living Status: Hx Family Cardiac Disorders: Yes Mother History Unknown: Yes Adopted: No Living Status: Still Living Hx Family Neuromuscular Disorders: Yes (Stroke) Medications and Allergies Aspirin 81 mg PO QAM 02/09/16 [History] Atenolol [Tenormin] 50 mg PO QAM 02/09/16 [History] Insulin NPH Human Isophane [Novolin N] 35 unit SQ QPM 02/09/16 [History] Lisinopril 5 mg PO QAM 02/09/16 [History] Metformin [Glucophage] 500 mg PO BID 02/09/16 [History] Simvastatin [Zocor] 40 mg PO QPM 02/09/16 [History] Fish Oil/Dha/Epa [Fish Oil 1,200 mg Fish Oil] 1 cap PO QPM 03/03/16 [History] Insulin NPH [HumuLIN NPH] 35 unit SQ DAILY #1 vial 05/30/16 [Rx] Rivaroxaban [Xarelto] 20 mg PO 1700 tablet 05/30/16 [Rx] Allergies No Known Allergies Allergy (Verified 03/28/16 09:49) All Systems Review: A 10-system review of systems was performed and is negative for pertinent findings except as documented above in the HPI. - Constitutional Constitutional: weakness - Neurological Neurological: abnormal speech Physical Examination Vital Signs, Last 4 Hours Temp Pulse Resp BP Pulse Ox 05/30/16 08:21 97.5 F L 54 16 142/75 97 Vital Signs Temp Pulse Resp BP Pulse Ox 05/30/16 08:21 97.5 F L 54 16 142/75 97 05/30/16 05:22 97.6 F 53 16 134/77 95 05/29/16 21:45 95 05/29/16 20:36 97.8 F 64 17 119/62 95 05/29/16 15:12 97.6 F 46 15 143/79 98 05/29/16 11:48 97.6 F 50 15 125/84 98 Intake and Output 05/29/16 05/30/16 05/30/16 23:59 07:59 15:59 Intake Total 0 / 0 Balance 0 / 0 Intake: Oral 0 / 0 Other: Meal Dinner Percent of Meal Consumed 5% # Voids 3 Weight 97.9 kg Blood Glucose* 183 114 Patient Weight 05/30/16 23:59 Weight 97.9 kg General: Conversant, No Apparent Distress HEENT: Atraumatic, Normocephaly, Mucus Membranes Moist Neck: No JVD, Normal carotid pulses Cardiac: Reg Rate and Rhythm, Normal S1 and S2, No Murmur Lungs: Normal Breath Sounds, No Wheeze, Rales, Rhonchi Neuro: Alert and responsive, No focal deficits noted Abdomen: Soft, Non-Tender Skin: No rashes noted on visualized skin Musculoskeletal: No Chest Wall Tenderness Extremities: No Clubbing, No Cyanosis, No Edema, Normal Pulses Results 05/30/16 04:49 05/30/16 04:49 Lab Results 05/30/16 05/30/16 04:49 04:49 WBC 7.9 Hgb 13.4 Hct 38.4 Plt Count 187 Sodium 138 Potassium 4.6 H Chloride 108 Carbon Dioxide 22 BUN 17 Creatinine 1.16 Glucose 110 H Calcium 9.2 Short CBC 05/30/16 Range/Units 04:49 WBC 7.9 (4.3-11.1) K/mcL Hgb 13.4 (12.9-16.9) g/dL Hct 38.4 (37.5-50.1) % Plt Count 187 (140-400) K/mcL Neutrophils # 5.4 (1.6-8.9) K/mcL BMP 05/30/16 Range/Units 04:49 Sodium 138 (136-145) mEq/L Potassium 4.6 H (3.5-4.5) mEq/L Chloride 108 (98-109) mEq/L Carbon Dioxide 22 (19-29) mEq/L BUN 17 (8-26) mg/dL Creatinine 1.16 (0.72-1.25) mg/dL Glucose 110 H (70-99) mg/dL Calcium 9.2 (8.6-10.8) mg/dL Active Medications Acetaminophen (Tylenol) 650 mg PO Q6HR PRN PRN Reason: Mild Pain Stop: 11/28/16 14:57 Acetaminophen/Hydrocodone Bitart ([place] 5-325 Mg) 1 tab PO Q4HR PRN PRN Reason: Moderate Pain Stop: 11/28/16 14:57 [facility] [place]: 11/27/16 09:01 Last Admin: 05/30/16 08:38 Dose: 81 mg Atenolol (Tenormin) [facility] [place] [place]: 11/27/16 09:01 Last Admin: 05/30/16 08:37 Dose: 50 mg Dextrose/Water (Dextrose 50% (Syg)) 25 ml IVP AD PRN PRN Reason: Hypoglycemia Stop: 11/26/16 11:14 Docusate Sodium (Colace) 100 mg PO BID PRN PRN Reason: Constipation Stop: 11/26/16 10:51 Glucagon (Glucagen) 1 mg IM ONCE PRN PRN Reason: Hypoglycemia Stop: 11/26/16 11:14 Glucose (Gluctose) 15 gm PO ONCE PRN PRN Reason: Hypoglycemia Stop: 11/26/16 11:14 Glucose (Gluctose) 30 gm PO ONCE PRN PRN Reason: Hypoglycemia Stop: 11/26/16 11:14 Dextrose (Dextrose 5%) 1,000 mls @ 100 mls/hr IV CONT PRN PRN Reason: HYPOGLYCEMIA Stop: 11/26/16 11:14 Sodium Chloride (0.9 % Sodium Chloride) 1,000 mls @ 50 mls/hr IVC .Q20H [facility] Stop: 11/28/16 14:16 Insulin Detemir (Levemir) 35 unit SQ HS JOHN Stop: 11/26/16 21:01 Last Admin: 05/29/16 21:53 Dose: 35 unit Insulin Human Lispro (Humalog) 0 units SQ HS JOHN PRN Reason: Protocol Stop: 11/26/16 21:01 Last Admin: 05/29/16 21:53 Dose: Not Given Insulin Human Lispro (Humalog) 0 units SQ TIDAC JOHN PRN Reason: Protocol Stop: 11/26/16 11:31 Last Admin: 05/30/16 08:38 Dose: Not Given Lisinopril (Zestril) 5 mg PO QAM [facility] Stop: 11/27/16 09:01 Last Admin: 05/30/16 08:37 Dose: 5 mg Morphine Sulfate (Morphine Sulfate) 2 mg IVP Q2H PRN PRN Reason: Severe Pain Stop: 11/28/16 14:57 Naloxone HCl (Narcan) 0.4 mg IVP Q2MIN PRN PRN Reason: Opioid Reversal Stop: 11/26/16 10:51 Ondansetron HCl (Zofran) 4 mg IVP Q6HR PRN; Protocol PRN Reason: Nausea And Vomiting Stop: 11/28/16 14:57 Pharmacy Profile Note (Patient Taking Own Medication) 1 each PO QPM [facility] Stop: 11/26/16 18:01 Last Admin: 05/29/16 17:34 Dose: Not Given Rivaroxaban (Xarelto) 20 mg PO 1700 JOHN Stop: 11/29/16 17:01 Simvastatin (Zocor) 40 mg PO QPM [facility] PRN Reason: Protocol Stop: 11/26/16 18:01 Last Admin: 05/29/16 18:36 Dose: 40 mg - Imaging and Cardiology Echo: report reviewed - EKG Interpretation EKG results cardiology: personally reviewed (Sinus micah, RBBB), other (24 hour tele AVG HR 57, SR, no significant pauses or arrhythmias) Consult Discharge Plan - Plan Instructions: Aspirin (By mouth), Simvastatin (By mouth), Rivaroxaban (By mouth ), Diabetes Mellitus Type 2 in Adults (DC), Diabetes Mellitus Type 2 in Adults ( GEN), Ischemic Stroke (DC), Ischemic Stroke (GEN) Additional Instructions: ACTIVITY: Moderate activity for the next 7 days. No lifting more than 5 pounds ( gallon of milk) for 1 week. BATHING /SHOWERING: Do not remove the large bandage over the site for 2 days. Do not allow the device to get wet for 7-10 days. You may bathe/shower, but do not use soap and water on the site. When bathing, keep the site dry by covering with Saran wrap or a towel. WOUND CARE: The white steri-strips will start to peel away and come off after 14 days, or your doctor will remove them after [address] anything into or on top of the incision. Do not use cotton swabs. Do not use any antibiotic ointment or Vitamin E on the site. REMINDERS: Notify security personnel at the airport that you have a device before you go through airport security screening. When at places with security monitors, such as a grocery store, do not linger near these monitors. It is fine to walk past them in a normal manner. Refer to your owners manual for more specific directions. CARRY YOUR IDENTIFICATION CARD WITH YOU AT ALL TIMES Return to work as instructed per physician Resume driving as instructed per physician Keep all scheduled follow up appointments Resume medications as instructed Contact [facility] ( ) if: You develop excessive bleeding from insertion or wound site not controlled by applying pressure You develop a fever greater than 101 degrees Fahrenheit Your incision becomes reddened at or around the site Your incision develops yellowish or greenish drainage or development of white pimple-like bumps You experience excessive pain You experience muscle switching If you experience chest pain, shortness of breath, dizziness, or extreme tiredness, stop the activity and rest. Please notify [facility] office if you experience any of these symptoms and they are not relieved by rest please call 911! Referrals: [facility] [Provider Group] - 06/08/16 9:00 am (Follow up cardiology for wound check. July 14, 2016 Follow up cardiology for device check.) Brandi Yanes MD [Primary Care Provider] - Jaspal Cruz MD [Partnered Physician] - 09/01/16 12:30 pm (Follow up with Dr. Jaspal Cruz, 3 month.) Prescriptions: Insulin NPH [HumuLIN NPH] 35 unit SQ DAILY #1 vial <Kathrine Reyes - Last Filed: 05/30/16 16:22> Assessment and Plan Discussion w patient/family: The assessment and plan as outlined above was discussed with the patient and/or family members who expressed understanding and agreement. All questions were answered. Thank you for involving us in the care of your patient. Please call with any questions. History of Present Illness History of present illness: Mr. Smith is a 71 year old male All Systems Review: A 10-system review of systems was performed and is negative for pertinent findings except as documented above in the HPI. Results 05/30/16 04:49 05/30/16 04:49 Lab Results 05/30/16 05/30/16 04:49 04:49 WBC 7.9 Hgb 13.4 Hct 38.4 Plt Count 187 Sodium 138 Potassium 4.6 H Chloride 108 Carbon Dioxide 22 BUN 17 Creatinine 1.16 Glucose 110 H Calcium 9.2 - Attending Attestation I examined this patient and my medical decision-making was reviewed with the CURTAIN INSPECTOR/PA/Advanced Practice Nurse/Resident Physician. I agree with the documented findings, disposition and treatment plan. Mr. Smith presented with a CVA concerning for an embolic etiology. He underwent a JAMARCUS which did not demonstrate an embolic source. Neurology requested evaluation for a LOOP recorder placement. We discussed this with the patient and his . It was also discussed with Dr. Jaspal Cruz. Given concern for underlying dysrhythmia as a potential cause for CVA, it is reasonable to proceed with LOOP. Patient is aware of the small risk for infection and procedural complications. Consent will be discussed with Dr. Jaspal Cruz.
[2016-05-30 11:26] VITALS: BP 135/74
--- NOTE | 2016-05-30 16:19 | Invasive Diagnostic Lab ---
Loop Recorder Insertion Name: David Smith Date of Study: 05/30/2016 Date: 1945 Ht: 165.0 cm / 65.0 in Medical Record#: [id number] Age: 71 Wt: 97.0 kg / 213.8 lb Gender: Male BSA: 2.03 Location: Fluoro Dose: 0 mGy BMI: 35.63 Performing MD: Jaspal Cruz MD, [facility] Procedures Performed: Procedure LOOP RECORDER INSERTION Indications: Description Cryptogenic shock Impressions: IMPLANTABLE LOOP RECORDER * Loop recorder successfully implant. Procedure complete without incident. Appropriate device functionality was observed at the end of the case. Recommendations: The patient will follow-up in 4-6 weeks for a post-pacemaker interrogation and evaluation with their Medical Voucher Clerk. Procedure Description: After informed consent was obtained, the patient was prepped and draped in the sterile fashion exposing the left chest. Local anesthesia was performed using 1% Lidocaine. A 1cm incision was created with the punch tool. A small pocket was created for the loop recorder. The loop recorder was placed in the pocket with the provided tool. Steri-Strips were affixed and 4x4s rolled with tape. Procedure Medications: Time Medication Dose Unit Route 02:04 PM Lidocaine 2% 10 mL Subcutaneous Contrast: 0 0 ml. Complications: No complications occurred during the procedure. Complication None Updated by Jaspal Cruz MD, [facility] on 05/30/2016 4:13:30 PM electronically signed on 05/30/2016 4:13:50 PM with status of Final
[2016-05-30] MEDS ORDERED: *HR* Rivaroxaban 15 MG TABLET PO SCH (17:00)
[2016-05-30 18:18] LABS: APTT (LE Anticoag) 39 sec (32-48); Diluted Russell Viper Venom 31 sec (33-44); PT (LE-Anticoag) 12.4 sec (12.0-15.5)
== END 2016-05-30 16:25 | disposition home or self-care (01) ==
LOC: 2NENU 08:16 → EMEROO 08:16 → SUATTDRO 10:16 → 2NENU 10:50 → SUATTDRO 05-29 17:38
PROVIDERS: ADMIT Internal Medicine; ATTEND Internal Medicine

== ENCOUNTER 2018-10-11 13:42 | Inpatient (IN) ==
[2018-10-11] MEDS ORDERED: Isovue-370 500 ML BOTTLE IVP ONE (13:53)
--- NOTE | 2018-10-11 13:57 | Emergency Department Note ---
Disposition Clinical Impression: Cerebrovascular accident Qualifiers: CVA mechanism: unspecified Qualified Code(s): I63.9 - Cerebral infarction, unspecified CKD (chronic kidney disease) Qualifiers: Chronic kidney disease stage: unspecified stage Qualified Code(s): N18.9 - Chronic kidney disease, unspecified Disposition: Admitted As Inpatient Condition: Fair Time of Disposition: 14:13 General Adult HPI - General Chief complaint: ED Neuro Symptoms/Deficit Stated complaint: Stroke alert Time Seen by Provider: 10/11/18 13:44 Source: EMS Limitations: no limitations Nursing Notes Reviewed: Yes Vital Signs Reviewed: Yes - History of Present Illness HPI Narrative: Patient presents per EMS and I did see the patient immediately upon arrival and the story is that last known normal was at 10:00 this morning according to the and I did speak with her and the patient is also here with his son and daughter and the patient went outside and then was found in the walking in a [place] and he did have slurred speech. According to the son the patient was starting sentences and not completing them on the way here. The patient says that he feels fine and denies any specific complaints. He denies any pain in the head, neck, chest, abdomen or back. 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 The patient denies any numbness or weakness of the extremities or facial droop. Social history: No smoking or alcohol Pain Scale: 0 - Related Data Home Medications Medication Instructions Recorded Confirmed Aspirin 81 mg PO DAILY 02/09/16 10/11/18 Atenolol [Tenormin] 50 mg PO DAILY 02/09/16 10/11/18 Simvastatin [Zocor] 40 mg PO HS 02/09/16 10/11/18 Fish Oil/Dha/Epa [Fish Oil 1,200 1 cap PO QPM 03/03/16 10/11/18 mg Fish Oil] Apixaban [Eliquis] 5 mg PO BID 09/03/18 10/11/18 Lisinopril [Zestril] 40 mg PO DAILY 09/03/18 10/11/18 Insulin NPH Human Isophane 27 units SQ QPM 10/11/18 10/11/18 [Novolin N] Allergies Allergy/AdvReac Type Severity Reaction Status Date / Time No Known Allergies Allergy Verified 03/28/16 09:49 Review of Systems: Constitutional: No fever Vision: No blurred vision ENT: No rhinorrhea Respiratory: No cough Allergic: No allergies : No blood in urine GI: No blood in stool Hematologic: No bruising Dermatologic: No skin rash Musculoskeletal: No pain in the extremities Neuro: No numbness of the extremities Past Medical History - Past Medical History Medical history: Reports: arthritis, atrial fibrillation, diabetes, GERD, hyperlipidemia, hypertension, myocardial infarction, renal disease, other Surgical history: Reports: angioplasty/stent, carotid endarterectomy, coronary bypass (CABG), orthopedic, other, other Psychiatric history: Reports: no psych history - Social History Smoking Status: Former smoker Smokeless Tobacco Status: No Alcohol use: Reports: none Drug use: Reports: none Physical Exam CONSTITUTIONAL: Alert and oriented X3, well-nourished, well appearing, in no apparent distress HEAD: Normocephalic; atraumatic. EYES: PERRL, no scleral icterus. NOSE: The nose is normal in appearance without rhinorrhea RESP: Normal chest excursion with respiration; breath sounds clear and equal bilaterally; no wheezes, rhonchi, or rales CARD: Regular rhythm, without murmurs, rub or gallop ABD: Non-distended; non-tender, soft,without rigidity, rebound or guarding SKIN: Normal for age and race; warm and dry; no apparent lesions Neuro: See documentation of stroke scale - General Limitations: no limitations General appearance: alert Course Vital Signs Temperature 97.7 F 10/11/18 13:44 Pulse Rate 54 10/11/18 13:44 Respiratory Rate 18 10/11/18 13:44 Blood Pressure 170/75 10/11/18 13:44 O2 Sat by Pulse Oximetry 99 10/11/18 13:44 Temperature 97.7 F 10/11/18 13:44 Pulse Rate 55 10/11/18 14:23 Respiratory Rate 18 10/11/18 14:23 Blood Pressure 120/74 10/11/18 14:23 O2 Sat by Pulse Oximetry 98 10/11/18 13:59 Oxygen Delivery Oxygen Delivery Room Air Medical Decision Making - MDM Narrative Medical decision making narrative: The patient was not able to think of the month or his age but he does know that the year is 2018. Stroke alert was called by myself the patient is over CT at this time. Noncontrast head CT as well as CTA of the head and neck. These results are pending. The patient's last known normal was at 10:00 this morning. This will be further discussed with the stroke neurologist from [facility]. 1403 I did speak with the radiologist who tells me the noncontrast scan is negative. The CTAs still pending. I did speak with the stroke neurologist at [facility] Dr. Yates and the patient is not a thrombolytic candidate due to the fact that he is taking Eliquis as well as the very low stroke scale and it does seem that the patient's symptoms are improving. They did not feel is necessary to visualize the patient with tele-neurology. I am comfortable with this approach. The patient will be admitted for CVA. I should note his temperature was 97.9 orally right when he arrived and he did not feel warm so I do not feel this is a heat stroke/heat affect 1413 I did go back and have a long conversation with the family and explained why the patient is not getting tPA and the plan for admission and further evaluation for CVA. They are comfortable with this approach. The patient does have a mildly elevated troponin level 0.05 and this can further be evaluated in the hospital. He does not have any chest pain or discomfort. CTA of the head and neck are pending. I have called the hospitalist for admission. 1440 I did review the CTA which does appear to show chronic changes with recommendation for repeat study 6 months and the case was discussed with Dr. Herndon who is the hospitalist who accepts the patient for admission for further evaluation for strep throat. [address] Yates from [facility] neurology regarding the CTA finding of the head and neck and I did read her the interpretation and she does not feel that anything would be done emergently today or Sunday or Sunday if the patient was transferred and then I did speak again with the hospitalist and we will keep the patient here as [facility] would not do anything emergently even if it is found that the stroke was in the distribution of the focal stenosis. She does request I order the MRI from the emergency department and she will follow-up the results of the MRI herself Dr. Herndon. This will be done. 1610 - Medical Records Medical records reviewed: Yes I reviewed the patient's medical records. - Lab Data Lab results reviewed: Yes I reviewed the patient's lab results. Result diagrams: 10/11/18 13:53 10/11/18 13:53 Lab Results 10/11/18 10/11/18 10/11/18 Range/Units 13:50 13:53 13:53 WBC 12.9 H (4.3-11.1) K/mcL RBC 4.75 (4.19-5.50) M/mcL Hgb 14.7 (12.9-16.9) g/dL Hct 41.9 (37.5-50.1) % MCV 88.2 (83.0-100.0) fL MCH 30.9 (28.0-33.3) pg MCHC 35.1 (31.6-35.5) g/dL RDW 13.1 (11.5-14.5) % Plt Count 195 (140-400) K/mcL MPV 9.0 L (9.4-12.4) fL Sodium 139 (136-145) mEq/L Potassium 4.4 (3.5-5.1) mEq/L Chloride 103 (98-107) mEq/L Carbon Dioxide 28 (23-29) mEq/L BUN 22 (8-23) mg/dL Creatinine 1.42 H (0.70-1.30) mg/dL Est GFR ( Amer) 59 L (> 60) Est GFR (Non-Af Amer) 49 L (> 60) BUN/Creatinine Ratio 15 (6-26) Glucose 69 L (70-105) mg/dL POC Glucose 68 L (70-99) mg/dL Calculated Osmolality 290 (280-300) Calcium 9.4 (8.6-10.3) mg/dL Troponin I 0.05 H* (< 0.04) ng/mL 10/11/18 Range/Units 15:20 WBC (4.3-11.1) K/mcL RBC (4.19-5.50) M/mcL Hgb (12.9-16.9) g/dL Hct (37.5-50.1) % MCV (83.0-100.0) fL MCH (28.0-33.3) pg MCHC (31.6-35.5) g/dL RDW (11.5-14.5) % Plt Count (140-400) K/mcL MPV (9.4-12.4) fL Sodium (136-145) mEq/L Potassium (3.5-5.1) mEq/L Chloride (98-107) mEq/L Carbon Dioxide (23-29) mEq/L BUN (8-23) mg/dL Creatinine (0.70-1.30) mg/dL Est GFR ( Amer) (> 60) Est GFR (Non-Af Amer) (> 60) BUN/Creatinine Ratio (6-26) Glucose (70-105) mg/dL POC Glucose 69 L (70-99) mg/dL Calculated Osmolality (280-300) Calcium (8.6-10.3) mg/dL Troponin I (< 0.04) ng/mL - Radiology Data Radiology results reviewed: Yes I reviewed the patient's radiology results. NIH Stroke Scale - Level of Consciousness LOC: Alert - LOC Questions LOC Questions: Answers one correctly - LOC Commands LOC Commands: Performs both correctly - Best Gaze Best Gaze: Normal - Visual Visual: No visual loss - Facial Palsy Facial Palsy: Normal - Motor Arms Motor Arm-Left: No drift for 10 seconds Motor Arm-Right: No drift for 10 seconds - Motor Legs Motor Leg-Left: No drift for 5 seconds Motor Leg-Right: No drift for 5 seconds - Limb Ataxia Limb Ataxia: Normal, No Ataxia - Sensory Sensory: Normal - Best Language Best Language: No aphasia - Dysarthria Dysarthria: Normal - Extinction and Inattention Extinction and Inattention: Normal - NIHSS Total Score NIHSS Total Score: 1
[2018-10-11 14:02] LABS: Hematocrit 41.9 % (37.5-50.1); Hemoglobin 14.7 g/dL (12.9-16.9); Mean Corpuscular HGB Conc 35.1 g/dL (31.6-35.5); Mean Corpuscular Hemoglobin 30.9 pg (28.0-33.3); Mean Corpuscular Volume 88.2 fL (83.0-100.0); Platelet Count 195 K/mcL (140-400); Red Blood Count 4.75 M/mcL (4.19-5.50); Red Cell Distribution Width 13.1 % (11.5-14.5); White Blood Count 12.9 K/mcL (4.3-11.1)
[2018-10-11 14:37] LABS: Calcium 9.4 mg/dL (8.6-10.3); Potassium 4.4 mEq/L (3.5-5.1); Troponin I 0.05 ng/mL (< 0.04)
[2018-10-11] MEDS ORDERED: Acetaminophen 325 MG TABLET PO PRN (16:28)
[2018-10-11] MEDS ORDERED: Naloxone 0.4 MG/ML INJ IVP PRN (16:28)
--- NOTE | 2018-10-11 16:34 | Internal Med History&Physical ---
Date of Encounter: 10/11/18 Time of Encounter: 15:40 Internal Medicine - H&P: HPI Chief complaint: slurred speech Admitted From: Home Plans for Post Hospital Care: Home History of present illness: Mr. 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 He presented from home where he was last known well at 10am then developed slurred speech, expressive aphasia. He presented to ED with family and stroke alert was called. [facility] neurology discussed case with ED attending (did not tele evaluate). Given he is on AC, sxs were improving and low NIHSS he was not a tpa candidate. CTA head and neck preformed. Severe focal stenosis supraclinoid and right posterior cerebral arteries. known DONNELL and LICA non critical stenoses redemonstrated. These results were called to [facility] by ED attending. Rec was for admission here and stat MRI brain which remains pending. He is awake and alert with family at bedside. He has had similar presentation in past. currently he denies slurred speech or difficulty with word finding or expressing himself. Family feels speech and mental status are at baseline. He denies associated [place], vision changes, dysphagia earlier today or now. He has had no numbness/tingling, weakness or paralysis. cv- no chest pain, pressure, palpitations. He does not know when he is in afib as has no sxs. Not routinely taking his eliquis. No le edema, orthopnea. 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) Additional medical history: STENTED CAD, TUBULAR ADENOMA OF COLON, CEREBRAL INFARCATION, FRONTOPARIETAL INFARCT, R CAROTID STENOSIS, HETEROZYGAS FOR PROTHROBIN Psychiatric history: no psych history - Past Surgical History Surgical History: angioplasty/stent, carotid endarterectomy, coronary bypass (CABG), orthopedic, other, other Additional surgical history: CARDIAC STENT X4, COLONOSCOPY, R EYE CATARACT SX - Social History Smoking Status: Former smoker Smokeless Tobacco Status: No Alcohol use: none Drug use: none - Family History Father Living Status: Hx Family Cardiac Disorders: Yes Mother Adopted: No Living Status: Still Living Hx Family Neuromuscular Disorders: Yes (Stroke) Internal Medicine - H&P: Meds Aspirin 81 mg PO DAILY 02/09/16 [History] Atenolol [Tenormin] 50 mg PO DAILY 02/09/16 [History] Simvastatin [Zocor] 40 mg PO HS 02/09/16 [History] Fish Oil/Dha/Epa [Fish Oil 1,200 mg Fish Oil] 1 cap PO QPM 03/03/16 [History] Apixaban [Eliquis] 5 mg PO BID 09/03/18 [History] Lisinopril [Zestril] 40 mg PO DAILY 09/03/18 [History] Insulin NPH Human Isophane [Novolin N] 27 units SQ QPM 10/11/18 [History] Allergy/AdvReac Type Severity Reaction Status Date / Time No Known Allergies Allergy Verified 03/28/16 09:49 All Systems PM: A 10-system review of systems was performed and is negative for pertinent findings except as documented above in the HPI. - Constitutional Vitals: Temp Pulse Resp BP Pulse Ox 97.7 F 52 18 147/86 100 10/11/18 13:44 10/11/18 16:14 10/11/18 16:14 10/11/18 16:14 10/11/18 16:14 Exam: General: awake, alert, appears stated age HEENT:EOM intact, pupils equal, round, moist mucus membranes Neck: supple, trachea midline Cardiovascular:regular rate and rhythm, normal S1 & S2, no rubs, murmurs or gallops. No JVD. no lower extremity edema Lungs:Normal breath sounds, no wheezes, or crackles. Normal respiratory effort on room air Abdomen:Soft, non-tender, non-distended, + bowel sounds Extremities:No deformity, no edema or tenderness, no joint swelling or clubbing. Neurological: AAOx3, no pronator drift, + left facial droop, other CN grossly intact, sensation to light touch intact and equal thorughout, muscle streght 5/5 in all ext, no neglect, can lift ext to gravity >10 sec Skin:Normal color, no rash, no pallor, no jaundice Internal Med - H&P Results - Labs CBC & Chem 7: 10/11/18 13:53 10/11/18 13:53 Labs: Short CBC 10/11/18 Range/Units 13:53 WBC 12.9 H (4.3-11.1) K/mcL Hgb 14.7 (12.9-16.9) g/dL Hct 41.9 (37.5-50.1) % Plt Count 195 (140-400) K/mcL BMP 10/11/18 13:53 Sodium 139 Potassium 4.4 Chloride 103 Carbon Dioxide 28 BUN 22 Creatinine 1.42 H Glucose 69 L Calcium 9.4 Cardiac Enzymes 10/11/18 Range/Units 13:53 Troponin I 0.05 H* (< 0.04) ng/mL - Impressions ITS Impressions Head CT 10/11/18 00:00 IMPRESSION: No acute intracranial abnormality. Findings were discussed with Sb Bernal MD of the [place] emergency department at 2:09 pm on 10/11/2018. D/ / Junior Dozier MD / Junior Dozier MD Interpreting Provider: Junior Dozier MD Head CTA 10/11/18 13:53 IMPRESSION: Mild, less than 50%, stenosis of the right internal carotid artery by NASCET criteria. Moderate, 50-69%, stenosis of the left internal carotid artery by NASCET criteria. Severe focal stenosis of the supraclinoid right internal carotid artery. Severe focal stenosis of the right posterior cerebral artery proximal P2 segment. 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 Consider CTA head follow-up in 6 months to evaluate for stability. D/ / 10/11/2018 14:51:24 Eben Kenyon MD / Fani Watson Interpreting Provider: Eben Kenyon MD Neck CTA 10/11/18 13:53 IMPRESSION: Mild, less than 50%, stenosis of the right internal carotid artery by NASCET criteria. Moderate, 50-69%, stenosis of the left internal carotid artery by NASCET criteria. Severe focal stenosis of the supraclinoid right internal carotid artery. Severe focal stenosis of the right posterior cerebral artery proximal P2 segment. 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 Consider CTA head follow-up in 6 months to evaluate for stability. D/ / 10/11/2018 14:51:24 Eben Kenyon MD / Fani Watson Interpreting Provider: Eben Kenyon MD Chest X-Ray 10/11/18 13:54 IMPRESSION: Mild discoid atelectasis at the left base. No acute cardiopulmonary disease. D/ / Donnie Kirby MD / Donnie Kirby MD Interpreting Provider: Donnie Kirby MD - Assessment and Plan (1) CVA (cerebrovascular accident) Current Visit: Yes Status: Suspected Qualifiers: CVA mechanism: stenosis Precerebral and cerebral artery: posterior cerebral artery Laterality of affected vessel: right Qualified Code(s): I63.531 - Cerebral infarction due to unspecified occlusion or stenosis of right posterior cerebral artery (2) Elevated troponin Current Visit: Yes Status: Acute (3) Leukocytosis Current Visit: Yes Status: Acute Qualifiers: Leukocytosis type: unspecified Qualified Code(s): D72.829 - Elevated white blood cell count, unspecified (4) Acute kidney injury superimposed on CKD Current Visit: Yes Status: Acute (5) Afib Current Visit: Yes Status: Chronic Qualifiers: Atrial fibrillation type: paroxysmal Qualified Code(s): I48.0 - Paroxysmal atrial fibrillation (6) 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 transplanted heart: [place] heart Associated angina: without angina Qualified Code(s): I25.810 - Atherosclerosis of coronary artery bypass graft(s) without angina pectoris (9) Carotid stenosis Current Visit: Yes Status: Chronic Qualifiers: Laterality: bilateral Qualified Code(s): I65.23 - Occlusion and stenosis of bilateral carotid arteries - Summary of Assessment and Plan Summary of Assessment and Plan: Mr Smith is admitted with high suspicion acute CVA CVA, suspected Prior microinfarcts due to embolic source also known vasculopath with CABG and CEA hx NOT a tpa candidate or surgical intervention candidate as per [facility]- on AC, sxs resolving, low NIHSS -CTA with severe focal stenosis supraclinoid and post right cerebral artery, DONNELL <50% stenosis, LICA 50-69% stenosis -CT head neg -MRI pending -have discussed with Neurology whom will see pt -cont home eliquis, add asa to begin now, cont statin -stroke protcol ordered -permissive htn, prn labetalol for sbp >220 -am tsh, lipid, aic, b12 folate -check echo -bedside swallow eval Diabetes Mellitus, insulin dependent with unknown complications Hypoglycemia in ED with bmp glc in 60s earlier today -hold home basal insulin -floor nursing will check poc glucose and prns for hypoglycemia are in place -SSI and accu checks per stroke protocol Trop Elevation, suspect demand ischemia in setting of acute CVA, asx CAD s/p PCIs and CABG -cont to monitor for symptoms, trend trops, initial 0.05 -ekg reviewed: known RBBB and TWI III, no acute ischemic changes are identified -repeat ekg in am to assess for changes -cont asa, statin, eliquis, no BB given permissive htn -echo pending Afib hx, currently NSR -cont tele, monitor lytes, eliquis, hold BB as above leukocytosis- suspect reactive, no resp symptoms, check UA TA on CKD stage unknown- creat 1.4 and baseline appears to be 1.1-1.2 -check UA, gentle IVFs for one liter, avoid nephrotoxins, cont to monitor Prothrombin Gener Mutation, prone to clots- cont AC Incidental bulbous configuration LMCA confluence of infindibula favored over sm all aneurysm -discussed with pt/family -rec is for CTA in 6 mon to confirm stability vte ppx eliqis
[2018-10-11] MEDS ORDERED: *HR* Labetalol 20 MG/4 ML SYRINGE IVP PRN (16:43)
[2018-10-11] MEDS ORDERED: *HR* Dextrose 50 % in Water (Syg) 50 ML SYRINGE IVP PRN (16:55)
[2018-10-11] MEDS ORDERED: Dextrose Gel 15 GM/37.5 ML TUBE PO PRN ×2 (16:55)
[2018-10-11] MEDS ORDERED: D5% in Water 1,000 ML IVC PRN (16:55)
[2018-10-11] MEDS ORDERED: 0.9 % Sodium Chloride 1,000 ML IVC SCH (17:00)
[2018-10-11] MEDS: Aspirin Enteric Coated 81 MG Tablet PO SCH (18:03)
[2018-10-11] MEDS: Apixaban 5 MG TABLET PO SCH (21:11)
[2018-10-12 02:09] LABS: INR 1.3; Prothrombin Time 14.7 Seconds (9.4-12.1)
[2018-10-12 02:24] LABS: Albumin 3.9 g/dL (3.5-5.7); Albumin/Globulin Ratio 1.4 (1.1-2.2); Bilirubin,Total 0.8 mg/dL (0.3-1.0); Calcium 9.3 mg/dL (8.6-10.3); Chol/HDL Ratio 4.2 (0-4.9); Globulin 2.7 g/dL (2.4-3.5); Potassium 4.5 mEq/L (3.5-5.1); Total Protein 6.6 g/dL (6.4-8.9)
[2018-10-12 02:49] LABS: Folate 10.4 ng/mL (3.0-16.0)
--- NOTE | 2018-10-12 08:00 | Internal Med Progress Note ---
Hospitalist Progress Note - Encounter Date of Encounter: 10/12/18 Time of Encounter: 10:40 - Subjective Interval History: awake, at bedside. no slurred speech or work finding difficulty. has no numbness/tingling or weakness. denies urinary hesitancy or bladder pain. discussed all test results in detail and plan for today. answered all questions. he is not medically cleared for dc given acute cva and ta and he and family are aware - Exam Vitals: Temp Pulse Resp BP Pulse Ox 97.5 F L 50 16 175/81 100 10/12/18 03:21 10/12/18 07:22 10/12/18 07:22 10/12/18 07:22 10/12/18 07:22 Exam: General: awake, alert, appears stated age Cardiovascular:regular rate and rhythm, normal S1 & S2, no lower extremity edema Lungs:Normal breath sounds, no wheezes, or crackles. 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 (7) CAD (coronary artery disease) Current Visit: Yes Status: Chronic (8) Carotid stenosis Current Visit: Yes Status: Chronic - Summary of Assessment and Plan Summary of Assessment and Plan: Mr Smith is admitted with acute CVA and TA Acute CVA with microinfarcts suspected to be embolic MRI w tiny acute infarcts of left frontal lobe and possible acute v subacute similar infarct right frontal lobe CTA with severe focal stenosis supraclinoid and post right cerebral artery, DONNELL <50% stenosis, LICA 50-69% stenosis -awaiting neuro eval -cont eliquis, asa statin -stroke protocol in place -cont permissive htn, prn labetalol for sbp >220 -echo pending -pt/ot without needs, 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 Diabetes Mellitus, insulin dependent with unknown complications Hypoglycemia in ED with bmp glc in 60s on presentation, resolved -hold home basal insulin as blood glucse at goal <180 without it -SSI and accu checks per stroke protocol Trop Elevation, suspect demand ischemia in setting of acute CVA, asx CAD s/p PCIs and CABG EKG known RBBB and TWI III, no acute ischemic changes are identified -adynamic trops, no need to cont to trend -cont asa, statin, eliquis, no BB given permissive htn -echo pending Afib hx, currently NSR -cont tele, monitor lytes, eliquis, hold BB as above leukocytosis- suspect reactive, no resp symptoms,UA neg TA on CKD stage unknown- creat 1.4 and baseline appears to be 1.1-1.2 Possible progression of chronic disease -UA unremarkable w no proteinuria, gentle IVFs for one liter without change in creat, avoid nephrotoxins, renal US with incidental cyst, no hydronephrosis and notable moderate PVR -RN tocheck PVR bladder scan at bedside, may require straight cath and treaetment for urinary retention Prothrombin Gener Mutation, prone to clots- cont AC Incidental bulbous configuration LMCA confluence of infindibula favored over small aneurysm -discussed with pt/family -rec is for CTA in 6 mon to confirm stability vte ppx [facility] Internal Medicine: Result - Labs CBC & Chem 7: 10/11/18 13:53 10/12/18 01:44 Labs: Short CBC 10/11/18 Range/Units 13:53 WBC 12.9 H (4.3-11.1) K/mcL Hgb 14.7 (12.9-16.9) g/dL Hct 41.9 (37.5-50.1) % Plt Count 195 (140-400) K/mcL BMP 10/11/18 10/12/18 13:53 01:44 Sodium 139 139 Potassium 4.4 4.5 Chloride 103 105 Carbon Dioxide 28 25 BUN 22 21 Creatinine 1.42 H 1.46 H Glucose 69 L 102 Calcium 9.4 9.3 Cardiac Enzymes 10/11/18 10/11/18 10/12/18 Range/Units 13:53 20:14 01:44 Troponin I 0.05 H* 0.05 H* 0.05 H* (< 0.04) ng/mL Liver Function 10/12/18 Range/Units 01:44 Total Bilirubin 0.8 (0.3-1.0) mg/dL AST 14 (13-39) Units/L ALT 12 (7-52) Units/L Alkaline Phosphatase 58 (34-104) Units/L Albumin 3.9 (3.5-5.7) g/dL - ABG Interpretation ABG results: PT/INR, D-dimer PT 14.7 Seconds (9.4-12.1) H 10/12/18 01:44 - Impressions Impressions Head CT 10/11/18 00:00 IMPRESSION: No acute intracranial abnormality. Findings were discussed with Sb Bernal MD of the [place] emergency department at 2:09 pm on 10/11/2018. D/ / Junior Dozier MD / Junior Dozier MD Interpreting Provider: Junior Dozier MD Head CTA 10/11/18 13:53 IMPRESSION: Mild, less than 50%, stenosis of the right internal carotid artery by NASCET criteria. Moderate, 50-69%, stenosis of the left internal carotid artery by NASCET criteria. Severe focal stenosis of the supraclinoid right internal carotid artery. Severe focal stenosis of the right posterior cerebral artery proximal P2 segment. 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 Consider CTA head follow-up in 6 months to evaluate for stability. D/ / 10/11/2018 14:51:24 Eben Kenyon MD / Fani Watson Interpreting Provider: Eben Kenyon MD Neck CTA 10/11/18 13:53 IMPRESSION: Mild, less than 50%, stenosis of the right internal carotid artery by NASCET criteria. Moderate, 50-69%, stenosis of the left internal carotid artery by NASCET criteria. Severe focal stenosis of the supraclinoid right internal carotid artery. Severe focal stenosis of the right posterior cerebral artery proximal P2 segment. 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 Consider CTA head follow-up in 6 months to evaluate for stability. D/ / 10/11/2018 14:51:24 Eben Kenyon MD / Fani Watson Interpreting Provider: Eben Kenyon MD Chest X-Ray 10/11/18 13:54 IMPRESSION: Mild discoid atelectasis at the left base. No acute cardiopulmonary disease. D/ / Donnie Kirby MD / Donnie Kirby MD Interpreting Provider: Donnie Kirby MD Brain MRI 10/11/18 15:58 IMPRESSION: A few tiny acute infarctions in the posteriorly frontal left frontal lobe Question a tiny focus of acute to subacute infarction in the posterior right frontal lobe. Scattered small old infarctions. Mild parenchymal volume loss. Mild to moderate chronic microvascular disease. Moderate right mastoid effusion. The results were reported to Dr. Bernal at 7:43 p.m. on October 11, 2018. D/ / Donnie Kirby MD / Donnie Kirby MD Interpreting Provider: Donnie Kirby MD Consult Discharge Plan - Plan Referrals: Brandi Boyce MD [Primary Care Provider] - (1) CVA (cerebrovascular accident) Qualifiers: CVA mechanism: embolism Precerebral and cerebral artery: anterior cerebral artery Laterality of affected vessel: bilateral Qualified Code(s): I63.423 - Cerebral infarction due to embolism of bilateral anterior cerebral arteries (3) Leukocytosis Qualifiers: Leukocytosis type: unspecified Qualified Code(s): D72.829 - Elevated white bl ood cell count, unspecified (5) Afib Qualifiers: Atrial fibrillation type: paroxysmal Qualified Code(s): I48.0 - Paroxysmal atrial fibrillation (7) CAD (coronary artery disease) Qualifiers: Coronary Disease-Associated Artery/Lesion type: bypass graft [place] vs. transplanted heart: [place] heart Associated angina: without angina Qualified Code(s): I25.810 - Atherosclerosis of coronary artery bypass graft(s) without angina pectoris (8) Carotid stenosis Qualifiers: Laterality: bilateral Qualified Code(s): I65.23 - Occlusion and stenosis of bilateral carotid arteries
[2018-10-12] MEDS: Apixaban 5 MG TABLET PO SCH ×2 (08:22→20:49)
[2018-10-12] MEDS: Aspirin Enteric Coated 81 MG Tablet PO SCH (08:22)
[2018-10-12] MEDS: Insulin LISPRO 300 UNITS/3 ML VIAL SQ SCH ×3 (08:24→17:24)
[2018-10-12 10:30] LABS: Bilirubin,Urine Negative (Negative); Blood,Urine Negative (Negative); Clarity,Urine Clear (Clear); Glucose,Urine (UA) Normal (Normal); Ketones,Urine Negative (Negative); Leukocyte Esterase,Urine Negative (Negative); Nitrite,Urine Negative (Negative); Protein,Urine Negative (Neg-Trace); Specific Gravity,Urine 1.009 (1.010-1.025); Urobilinogen,Urine Normal (Normal)
[2018-10-12 10:31] LABS: Color,Urine Yellow (Yellow)
--- NOTE | 2018-10-12 14:54 | Neurology - Consult Note ---
Date of Encounter: 10/12/18 Time of Encounter: 12:50 Assessment and Plan (1) CVA (cerebrovascular accident) Current Visit: Yes Status: Acute This patient noted to have an acute infarct in the left frontal lobe as well as history of multiple lacunar infarct in the past With a history of atrial fibrillation certainly is a possibility that it could be an embolic phenomenon though at the same time he did have a significant intracranial atherosclerotic disease and potentially that could be the reason for these multiple small lacunar infarction that he continued to have off-and-on. No evidence of any large vessel stenosis at this time in particularly carotid seems to be stable In his clinical context with history strongly recommend that he should continue on anticoagulation along with aspirin as well as statin on a regular basis. Unfortunately there is no way of knowing how well anticoagulated he is with these newer anticougulation agents ( ELIQUIS) He denies missing any dosages except 1 day, perhaps may need to think about changing to a different anticoagulation due to the fact that he had these events while he is on medication. No significant focal motor neurological deficit on examination though he may benefit from short-term rehabilitation for gait and balance training exercises we will follow PT recommendations Qualifiers: CVA mechanism: stenosis Precerebral and cerebral artery: anterior cerebral artery Laterality of affected vessel: unspecified Qualified Code(s): I63.529 - Cerebral infarction due to unspecified occlusion or stenosis of unspecified anterior cerebral artery (2) Intracranial atherosclerosis Current Visit: Yes Status: Acute CT angiogram did shows evidence of significant intracranial atherosclerotic disease small vessels likely not a candidate for any stenting or any other intervention suggest medical treatment with antiplatelet agent along with anticoagulation in the statin monitor the blood pressure and blood sugar and keep it stable History of Present Illness HPI: Mr. Smith is a 73 year old male with past medical history of A-fib on eliquis, prothrombin [id number] Mutation, DM, GERD, HLD, HTN, CAD s/p PCI x4 CABG, CEA, CKD and previous microinfarcts from embolic source presented from home where he was last known well at 10am then developed slurred speech, expressive aphasia. He presented to ED with family and stroke alert was called. [facility] vascular neurology services were consulted given his symptoms were improving and low NIHSS and on anticougulation he was not a tpa candidate. CTA head and neck preformed. Severe focal stenosis supraclinoid and right posterior cerebral arteries. known DONNELL and LICA non critical stenoses redemonstrated. These results were called to [facility] attending. Recommended admission here and MRI brain He is awake and alert with family at bedside. He has had similar presentation in past. currently he denies slurred speech or difficulty with word finding or expressing himself. Family feels speech and mental status are at baseline. He denies associated ortega, vision changes, dysphagia earlier today or now. He has had no numbness/tingling, weakness or paralysis. Past Med Surg Social Fam HX - Past Medical History Medical history: arthritis, atrial fibrillation, coronary artery disease, CVA, diabetes, GERD, hyperlipidemia, hypertension, myocardial infarction, renal disease, other (prothrobin gene mutation, prior microinfarcts due to embolic source) Additional medical history: STENTED CAD, TUBULAR ADENOMA OF COLON, CEREBRAL INFARCATION, FRONTOPARIETAL INFARCT, R CAROTID STENOSIS, HETEROZYGAS FOR PROTHROBIN Psychiatric history: no psych history - Past Surgical History Surgical History: angioplasty/stent, carotid endarterectomy, coronary bypass (CABG), orthopedic, other, other Additional surgical history: CARDIAC STENT X4, COLONOSCOPY, R EYE CATARACT SX - Social History Smoking Status: Former smoker Smokeless Tobacco Status: No Alcohol use: none Drug use: none - Family History Father Living Status: Hx Family Cardiac Disorders: Yes Mother Adopted: No Living Status: Still Living Hx Family Neuromuscular Disorders: Yes (Stroke) Medications and Allergies Aspirin 81 mg PO DAILY 02/09/16 [History] Atenolol [Tenormin] 50 mg PO DAILY 02/09/16 [History] Simvastatin [Zocor] 40 mg PO HS 02/09/16 [History] Fish Oil/Dha/Epa [Fish Oil 1,200 mg Fish Oil] 1 cap PO QPM 03/03/16 [History] Apixaban [Eliquis] 5 mg PO BID 09/03/18 [History] Lisinopril [Zestril] 40 mg PO DAILY 09/03/18 [History] Insulin NPH Human Isophane [Novolin N] 27 units SQ QPM 10/11/18 [History] Allergy/AdvReac Type Severity Reaction Status Date / Time No Known Allergies Allergy Verified 03/28/16 09:49 All Systems: The remainder of the systems were reviewed and are negative Physical Examination - Vital Signs Vital Signs: Initial Vital Signs Temp Pulse Resp BP Pulse Ox 97.7 F 54 18 170/75 99 10/11/18 13:44 10/11/18 13:44 10/11/18 13:44 10/11/18 13:44 10/11/18 13:44 - Exam Exam: GENERAL: Comfortable in no acute distress HEENT: Normal LUNGS: CTA HEART: RRR, S1 S2 Audible, no murmur EXTREMITIES: No Pedal edema. DETAILED NEUROLOGICAL EXAMINATION: MENTAL STATUS: Oriented to person, place, date and situation. Memory: knows the President, Aware of recent events Recent Memory Intact, Attention span is normal Cranial Nerve Examination: CN - II: Visual Acuity, Field of Vision Normal, Fundus examination: No disk edema, Pupils- size shape reaction to light and accommodation: All normal. CN III, IV, : External ocular movements were intact, Pupils were reactive, Nodrooping of the eyelids CN V: Sensation over the face to light touch and pinprick all normal. Corneal reflexes not tested, jaw jerk normal. CN VII: No facial asymmetry, no flattening of nasolabial folds, no difficulty in closing the eyes, no loss of forehead wrinkles, no difficulty in eye-closure, frowning raising eyebrows. CNVIII: No significant hearing loss CN IX, X: Uvula centralized not deviated, Gag reflex: Not tested CN X1: Sternocleidomastoid, trapezius, normal or evidence of any weakness. CN X11: No Dysarthria, no wasting or fibrilation f tongue muscles, no deviation, tongue muscle strength normal. Motor examination: No hypertrophy, tone was normal, power grade 0-5 Upper limbs Proximal- No difficulty in lifting the arms above the head. Distal- No weakness in distal muscles On formal testing 5/5 all over Lower limbs On formal testing 5/5 all over Coordination: [id number] normal. Target pursuit normal finger tapping normal, Rapid alternating moment of wrist normal Sensory system: Superficial sensations- Touch normal. Pain- Pinprick, Temperature all normal, Deep sensation normal, Joint position sense normal. Cortical sensation, Tactile discrimination, localization and extinction all normal. Deep tendon reflexes. Symmetrical bilateral, No evidence of Babinski. No sign of meningeal irritation Gait Examination: Deferred - Constitutional General appearance: comfortable Results - Laboratory Findings CBC and BMP: 10/11/18 13:53 10/12/18 01:44 Abnormal lab findings: Abnormal lab results WBC 12.9 K/mcL (4.3-11.1) H 10/11/18 13:53 MPV 9.0 fL (9.4-12.4) L 10/11/18 13:53 PT 14.7 Seconds (9.4-12.1) H 10/12/18 01:44 1.46 mg/dL (0.70-1.30) H 10/12/18 01:44 Est GFR ( Amer) 57 (> 60) L 10/12/18 01:44 Est GFR (Non-Af Amer) 47 (> 60) L 10/12/18 01:44 Glucose 69 mg/dL (70-105) L 10/11/18 13:53 POC Glucose 183 mg/dL (70-99) H 10/11/18 17:01 0.05 ng/mL (< 0.04) H* 10/12/18 01:44 LDL Cholesterol, Calc 102 mg/dL (0-99) H 10/12/18 01:44 37 mg/dL (40-59) L 10/12/18 01:44 Ur Specific [place] 1.009 (1.010-1.025) L 10/12/18 10:15 - Diagnostic Findings Additional findings: MRI of brain showed: A few tiny acute infarctions in the posteriorly frontal left frontal lobe Question a tiny focus of acute to subacute infarction in the posterior right frontal lobe. Scattered small old infarctions. Mild parenchymal volume loss. Mild to moderate chronic microvascular disease. Moderate right mastoid effusion. CT/CT angio head Mild, less than 50%, stenosis of the right internal carotid artery by NASCET criteria. Moderate, 50-69%, stenosis of the left internal carotid artery by NASCET criteria. Severe focal stenosis of the supraclinoid right internal carotid artery. Severe focal stenosis of the right posterior cerebral artery proximal P2 segment. 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 Consult Discharge Plan - Plan Referrals: Brandi Boyce MD [Primary Care Provider] -
[2018-10-13 06:52] LABS: Basophils # 0.1 K/mcL (0.0-0.2); Basophils % 0.7 %; Eosinophils # 0.3 K/mcL (0.0-0.6); Eosinophils % 4.1 %; Hematocrit 42.4 % (37.5-50.1); Hemoglobin 14.9 g/dL (12.9-16.9); Immature Granulocytes % 0.2 % (0-4); Lymphocytes # 1.2 K/mcL (0.6-4.6); Lymphocytes % 15.4 %; Mean Corpuscular HGB Conc 35.1 g/dL (31.6-35.5); Mean Corpuscular Hemoglobin 31.4 pg (28.0-33.3); Mean Corpuscular Volume 89.5 fL (83.0-100.0); Mean Platelet Volume 9.3 fL (9.4-12.4); Monocytes # 0.6 K/mcL (0.0-1.3); Monocytes % 7.2 %; Neutrophils # 5.8 K/mcL (1.6-8.9); Platelet Count 180 K/mcL (140-400); Red Blood Count 4.74 M/mcL (4.19-5.50); Red Cell Distribution Width 13.1 % (11.5-14.5); Segmented Neutrophils % 72.4 %; White Blood Count 8.1 K/mcL (4.3-11.1)
[2018-10-13 07:09] LABS: BUN/Creatinine Ratio 18 (6-26); Blood Urea Nitrogen 22 mg/dL (8-23); Calcium 9.2 mg/dL (8.6-10.3); Carbon Dioxide 25 mEq/L (23-29); Chloride 102 mEq/L (98-107); Glucose 185 mg/dL (70-105); Osmolality,Calculated 288 (280-300); Potassium 4.8 mEq/L (3.5-5.1); Sodium 135 mEq/L (136-145); eGFR For African Americans > 60 (> 60); eGFR For Non-African Americans 58 (> 60)
--- NOTE | 2018-10-13 07:51 | Discharge Summary ---
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 referrals placed for both. He is bradycardic at baseline. We trialed lower atenolol dose given his cardiac disease but HR in upper 40s. On dc instructed to hold atenolol and cont lisinopril. Will require outpt follow up for further monitoring and instruction. CTA incidental Left MCA bulbous configuration. likley confluence of infindibula but cannot rule out small aneurysm. Radiology recommends repeat CTA in 6 months to confirm stability Orders not resulted at time of discharge: Pending orders 10/11/18 16:34 Urinalysis reflex Microscopic [URIN] Stat 10/12/18 01:44 Hgb A1C AM 0400 10/12/18 06:00 ECG 12 lead ECG [ECG] AM 0600 Date of Encounter: 10/13/18 Time of Encounter: 09:30 - Discharge Diagnosis (1) CVA (cerebrovascular accident) Priority: Primary Status: Acute Assessment and Plan: Acute CVA with microinfarcts suspected to be embolic MRI w tiny acute infarcts of left frontal lobe and possible acute v subacute similar infarct right frontal lobe CTA with severe focal stenosis supraclinoid and post right cerebral artery, DONNELL <50% stenosis, LICA 50-69% stenosis ECHO with no PFO, no thrombus -appreciate neuro input -cont eliquis, asa statin , family to monitor compliance -outpt neuro and heme follow up referrals made -out of permissive htn, half home doses given today with good effect and sbp to 150s from 170s, noted to have asx bradycardia with even only half atenolol home dose, discussed with pt and family and recommend to stop this medicaiton for time being and cont full dose lisinopril on dc, he requires close outpt monitoring of BP for further adjustments -bp at goal on dc -no pt, ot or fire safety director needs Qualifiers: CVA mechanism: embolism Precerebral and cerebral artery: anterior cerebral artery Laterality of affected vessel: unspecified Qualified Code(s): I63.429 - Cerebral infarction due to embolism of unspecified anterior cerebral artery (2) Elevated troponin Priority: Secondary Status: Acute Assessment and Plan: Trop Elevation, suspect demand ischemia in setting of acute CVA, asx, adynamic CAD s/p PCIs and CABG EKG known RBBB and TWI III, no acute ischemic changes are identified -cont asa, statin, eliquis, lisinopril, hold BB on dc due to bradycardia with HR drop into upper 40s, asx, fu outpt for further med adjustments (3) CAD (coronary artery disease) Priority: Secondary Status: Chronic Assessment and Plan: as above Qualifiers: Coronary Disease-Associated Artery/Lesion type: bypass graft [place] vs. transplanted heart: [place] heart Associated angina: without angina Qualified Code(s): I25.810 - Atherosclerosis of coronary artery bypass graft(s) without angina pectoris (4) Afib Priority: Secondary Status: Chronic Assessment and Plan: NSR while here -cont eliquis and hold BB as above Qualifiers: Atrial fibrillation type: paroxysmal Qualified Code(s): I48.0 - Paroxysmal atrial fibrillation (5) Acute kidney injury superimposed on CKD Priority: Secondary Status: Resolved Assessment and Plan: TA on CKD stage unknown- creat 1.4 and to baseline 1.1-1.2 on dc with ivf and holding of acei Possible progression of chronic disease vs dehydration as had been outside in high temps doing lawn work -UA unremarkable w no proteinuria, renal US with incidental cyst, no hydronephrosis and PVR neg (6) Leukocytosis Priority: Secondary Status: Resolved Assessment and Plan: reactive from CVA, resolved Qualifiers: Leukocytosis type: unspecified Qualified Code(s): D72.829 - Elevated white blood cell count, unspecified (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 He presented to ED as a stroke alert with change in speech and mentation. [facility] found him not to be a tpa or other intervention candidate due to being on AC, resolving sxs and low NIHSS. He was admitted here for further work up. He was identified on MRI to have tiny acute infarcts of left frontal lobe and possible acute v subacute similar infarct right frontal lobe. CTA also identified severe focal stenosis supraclinoid and post right cerebral artery, DONNELL <50% stenosis, LICA 50-69% stenosis. Neurology followed. He was treated with ASA, statin and home Eliquis. There is some concern he has not been routin vanessa taking Eliquia or may be reducing his home dosing, though it cannot be completely confirmed. Full details of his hospital course can be found in the diagnoses section of this document. He is discharged to home in stable condition with home BP med changes, neuro and heme referrals for follow up. Discharge discussed with: patient, family, nurse Time spent discussing smoking cessation with patient: more than 10 minutes - Time Spent with Patient Time spent: Greater than 30 minutes (45 min) - Discharge Medications Prescriptions: Continued Simvastatin [Zocor] 40 mg PO HS Aspirin 81 mg PO DAILY Fish Oil/Dha/Epa [Fish Oil 1,200 mg Fish Oil] 1 cap PO QPM Apixaban [Eliquis] 5 mg PO BID Lisinopril [Zestril] 40 mg PO DAILY Insulin NPH Human Isophane [Novolin N] 27 units SQ QPM Discontinued Atenolol [Tenormin] 50 mg PO DAILY Home Medications: Aspirin 81 mg PO DAILY 02/09/16 [History] Simvastatin [Zocor] 40 mg PO HS 02/09/16 [History] Fish Oil/Dha/Epa [Fish Oil 1,200 mg Fish Oil] 1 cap PO QPM 03/03/16 [History] Apixaban [Eliquis] 5 mg PO BID 09/03/18 [History] Lisinopril [Zestril] 40 mg PO DAILY 09/03/18 [History] Insulin NPH Human Isophane [Novolin N] 27 units SQ QPM 10/11/18 [History] Allergies/Adverse Reactions: Allergy/AdvReac Type Severity Reaction Status Date / Time No Known Allergies Allergy Verified 03/28/16 09:49 Date of admission: 10/11/18 18:30 Primary care physician: Brandi Boyce MD Consults: 10/11/18 16:34 Consult to Neurology [CONS] Routine Consulting Provider: [facility] Reason for Consult: acute cva Call Completed: Yes Consult to Occupational Therapy [CONS] Routine Comment: Evaluate, develop and implement POC Reason for Consult: cva Does patient have active BEDREST order?: No Is patient medically & hemodynamically stable?: Yes Patient assessed for mobility or mobilized this visit?: Yes Consult to Physical Therapy [CONS] Routine Comment: Evaluate, develop and implement POC Reason for Consult: cva Does patient have active BEDREST order?: No Is patient medically & hemodynamically stable?: Yes Patient assessed for mobility or mobilized this visit?: Yes Consult to Director Revenue [CONS] Routine Reason for SW Consult: cva Discharging clinician: Geeta Whitten - Constitutional Vitals: Temp Pulse Resp BP Pulse Ox 97.9 F 53 14 171/76 95 10/13/18 06:00 10/13/18 06:00 10/13/18 06:00 10/13/18 06:00 10/13/18 06:00 Exam: awake. very pleasant and feeling well. he has no complaints. denies ortega, vision hcanges, speech changes, word finding difficulties, weakness or numbness. He has no lightheadedness, cp or dizziness. discussed plan for day in detail and plans for discharge. We had a long talk about follow up and Eliquis compliance. He does relay concern for cost of medical care on a whole [facility] He notes that sometimes he does actually forget to take his Eliquis until later in the day and depending on what time he notices he may skip morning dose and then just take evening dose. Answered all discharge questions and obtained permission to contact his daughter Sheridan to discuss discharge plan as well. Conversation by phone with pt daughter whom is a RN here. She has had conversations with her mother regarding eliquis compliance and cost. There is no concern for ability to afford cost of medication or outpt aptts rather Mr Smith doesn't prefer to have to pay those amounts. She does have some concern that he has not been religiously taking medication or has reduced doses in past, however pt did check his current pill bottle and appears currently there are an appropriate amount of pills used. Sheridan feels comfortable with cont Eliquis for now and family monitoring of compliance. He will be referred to both neurology and hematology for follow up. Discussed in detail BP med recs on dc. General: awake, alert, appears stated age Cardiovascular: rate upper 50s on tele at bedside and reg rhythm, normal S1 & S2, no lower extremity edema Lungs:Normal breath sounds, Normal respiratory effort on room air Neurological: AAOx3, faint left facial droop, other CN grossly intact, muscle strength 5/5 in all ext, sensation intact and equal throughout all ext and face, clear speech and no evidence of expressive aphasia - Patient Status Disposition: Home, Self-Care Condition: Good Functional capacity at discharge: independent ambulation Overall status at discharge: patient is progressing back to baseline - Discharge Instructions Follow Up With: Brandi Boyce MD [Primary Care Provider] - Martina Teixeira MD [Partnered Physician] - [facility] [Provider Group] (Heme follow up for clotting disorder) Additional Instructions: You were diagnosed with acute frontal lobe strokes. They were tiny and suspected to be from emboli (blood clots) and atherosclerotic disease (cholesterol plaques). You must continue aspirin, statin and Eliquis as prescribed every day. You cannot miss doses. It is recommneded that you see the Neurology and Human Resources Representative for stroke and clotting disorder outpatient. Referrals for these appointments have been made as discussed AVOID BEING OUTSIDE IN THE HEAT DOING WORK for the next week. You had a kidney injury due to suspected dehydration likely from being outside. You also had low blood sugar when you first came to the hospital. Check your blood sugar before meals and at bedtime daily and record numbers. Take this information to your follow up appt with your family doctor to see if medication adjustments need made. Keep glucose tabs (can be purchased over the counter at your pharmacy) or juice on hand for any low blood sugars. You have had a medication adjustment that requires outpatient follow up with your family doctor. STOP atenolol. While this medication does help your heart disease your heart rate is too low even with trial of reduced dose. CONTINUE your home dose of Lisinopril Talk with your doctor about further changes that may need made in upcoming week You were incidentally noted to have an small configuration of your left MCA (brain artery). This should be re checked in 6 months with head CTA as while it appears artifact from how the vessel is positions, small aneurysm cannot be ruled out. This needs rechecked in 6 months to confirm no change. - Diet and Activity Activity: increase activity as tolerated Diet: advance to your usual diet, diabetic diet, low fat, low cholesterol, low salt diet
[2018-10-13] MEDS: Aspirin Enteric Coated 81 MG Tablet PO SCH (07:56)
[2018-10-13] MEDS: Apixaban 5 MG TABLET PO SCH (07:56)
[2018-10-13] MEDS: Insulin LISPRO 300 UNITS/3 ML VIAL SQ SCH ×2 (07:56→11:55)
[2018-10-13 08:28] LABS: Estimated Average Glucose 151 mg/dl
[2018-10-13] MEDS ORDERED: Lisinopril 20 MG TABLET PO SCH (09:00)
[2018-10-13 19:53] VITALS: BP 156/69
--- NOTE | 2018-10-15 16:48 | Electrocardiograph Report ---
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
== END 2018-10-13 14:03 | disposition home or self-care (01) | DRG 65 ==
LOC: EMEROOARM 13:42 → 2NENU 13:42 → SUATTDRO 16:03 → 2NENU 16:30
PROVIDERS: ADMIT Internal Medicine; ATTEND Internal Medicine

== ENCOUNTER 2018-12-04 11:34 | Inpatient (IN) ==
--- NOTE | 2018-12-04 12:17 | Emergency Department Note ---
Disposition Clinical Impression: Abnormal stress test, Elevated troponin Disposition: Admitted As Inpatient Referrals: Brandi Boyce MD [Partnered Physician] - Forms: ED Satisfaction Letter Time of Disposition: 15:07 General Adult HPI - General Chief complaint: ED Recheck/Abnormal Lab/Rx Stated complaint: Abnormal Stress Test Time Seen by Provider: 12/04/18 11:46 Source: patient, family Mode of arrival: ambulatory Limitations: no limitations Nursing Notes Reviewed: Yes Vital Signs Reviewed: Yes - History of Present Illness HPI Narrative: 73M with past medical history of coronary artery disease with 4 stents placed presents emergency department after an abnormal stress test performed at [facility]. Dr. Tran has artery been notified of this patient and will likely take the patient to the Nursing Student today. Patient describes a history of stable angina which has been worsening over the past several weeks. He does not currently have any chest pain or shortness breath at rest. He is currently asymptomatic. Pain Scale: 0 - Related Data Home Medications Medication Instructions Recorded Confirmed Simvastatin [Zocor] 40 mg PO HS 02/09/16 12/04/18 Fish Oil/Dha/Epa [Fish Oil 1,200 1 cap PO QPM 03/03/16 12/04/18 mg Fish Oil] Apixaban [Eliquis] 5 mg PO BID 09/03/18 12/04/18 Lisinopril [Zestril] 40 mg PO DAILY 09/03/18 12/04/18 Insulin NPH Human Isophane 27 units SQ QPM 10/11/18 12/04/18 [Novolin N] Aspirin Enteric Coated [Aspirin EC] 81 mg PO DAILY 12/04/18 12/04/18 Allergies Allergy/AdvReac Type Severity Reaction Status Date / Time No Known Allergies Allergy Verified 12/04/18 11:42 All systems ED: reviewed and negative except as stated. Review of Systems: As Per HPI Constitutional: Denies: fever, chills, weakness Cardiovascular: Reports: chest pain, dyspnea on exertion. Denies: palpitations Respiratory: Denies: cough, dyspnea, wheezes Gastrointestinal: Denies: abdominal pain, nausea, vomiting Genitourinary: Denies: dysuria, hematuria Musculoskeletal: Denies: back pain, neck pain Integumentary: Denies: rash Neurological: Denies: headache Endocrine: Denies: fatigue Past Medical History - Past Medical History Attestation: Yes The following information was validated with the patient. Source: patient Medical history: Reports: arthritis, atrial fibrillation, coronary artery disease, CVA, diabetes, GERD, hyperlipidemia, hypertension, myocardial infarction, renal disease, other Surgical history: Reports: angioplasty/stent, carotid endarterectomy, coronary bypass (CABG), orthopedic, other, other Psychiatric history: Reports: no psych history - Social History Smoking Status: Former smoker Smokeless Tobacco Status: No Alcohol use: Reports: none Drug use: Reports: none Physical Exam - General Limitations: no limitations General appearance: alert, in no apparent distress - Head Head exam: atraumatic, normocephalic - Eye Eye exam: Present: normal appearance, EOMI - Neck Neck exam: Present: normal inspection. Absent: tenderness, lymphadenopathy - Chest Chest inspection: Present: normal inspection. Absent: tenderness, rash - Respiratory Respiratory exam: Present: normal lung sounds bilaterally. Absent: wheezes - Cardiovascular Cardiovascular exam: Present: regular rate, normal rhythm - Abdominal Exam Abdominal exam: Present: soft, Non-Tender. Absent: distention, guarding, rebound, rigidity - Extremities Exam Extremities exam: Present: normal inspection. Absent: tenderness, pedal edema - Neurological Exam Neurological exam: Present: alert, oriented X3 - Psychiatric Psychiatric exam: Present: normal affect, normal mood - Skin Skin exam: Present: warm, dry, intact Course Vital Signs Temperature 97.6 F 12/04/18 11:43 Pulse Rate 67 12/04/18 11:43 Respiratory Rate 18 12/04/18 11:43 Blood Pressure 116/70 12/04/18 11:43 O2 Sat by Pulse Oximetry 98 12/04/18 11:43 Temperature 97.6 F 12/04/18 11:43 Pulse Rate 55 12/04/18 12:40 Respiratory Rate 16 12/04/18 12:40 Blood Pressure 112/83 12/04/18 12:40 O2 Sat by Pulse Oximetry 95 12/04/18 12:40 Oxygen Delivery Oxygen Delivery Room Air Medical Decision Making - [facility] Narrative Medical decision making narrative: Patient presents after an abnormal stress test and being told that Dr. Tran will likely take him to the Nursing Student today. Patient is currently asymptomatic. We will do screening labs, EKG and chest x-ray and plan admission of this patient for catheter. Dr. Tran has been paged at this time. 1300 - Spoke with Elver Salinas CNP for cardiology who states she was not aware of this patient but she would gladly see them and suggests admission to the hospitalist with cardio consult. Awaiting labs at this time. CXR and EKG without any acute findings. 5855 - patient has been accepted by the cardiology service with consult to hospitalist for diabetes management. - Medical Records Medical records reviewed: Yes I reviewed the patient's medical records. - Lab Data Lab results reviewed: Yes I reviewed the patient's lab results. Result diagrams: 12/04/18 12:35 12/04/18 12:35 Lab Results 12/04/18 12/04/18 12/04/18 Range/Units 12:35 12:35 12:35 WBC 9.0 (4.3-11.1) K/mcL RBC 4.19 (4.19-5.50) M/mcL Hgb 13.3 (12.9-16.9) g/dL Hct 36.7 L (37.5-50.1) % MCV 87.6 (83.0-100.0) fL MCH 31.7 (28.0-33.3) pg MCHC 36.2 H (31.6-35.5) g/dL RDW 13.2 (11.5-14.5) % Plt Count 189 (140-400) K/mcL MPV 9.3 L (9.4-12.4) fL Immature Gran % 0.2 (0-4) % Seg Neutrophils % 73.7 % Lymphocytes % 15.6 % Monocytes % 6.7 % Eosinophils % 3.2 % Basophils % 0.6 % Neutrophils # 6.7 (1.6-8.9) K/mcL Lymphocytes # 1.4 (0.6-4.6) K/mcL Monocytes # 0.6 (0.0-1.3) K/mcL Eosinophils # 0.3 (0.0-0.6) K/mcL Basophils # 0.1 (0.0-0.2) K/mcL PT 12.7 H (9.4-12.1) Seconds INR 1.1 Sodium 138 (136-145) mEq/L Potassium 4.6 (3.5-5.1) mEq/L Chloride 105 (98-107) mEq/L Carbon Dioxide 26 (23-29) mEq/L BUN 23 (8-23) mg/dL Creatinine 1.17 (0.70-1.30) mg/dL Est GFR ( Amer) > 60 (> 60) Est GFR (Non-Af Amer) > 60 (> 60) BUN/Creatinine Ratio 20 (6-26) Glucose 97 (70-105) mg/dL Calculated Osmolality 290 (280-300) Calcium 9.0 (8.6-10.3) mg/dL Troponin I (< 0.04) ng/mL 12/04/18 Range/Units 12:35 WBC (4.3-11.1) K/mcL RBC (4.19-5.50) M/mcL Hgb (12.9-16.9) g/dL Hct (37.5-50.1) % MCV (83.0-100.0) fL MCH (28.0-33.3) pg MCHC (31.6-35.5) g/dL RDW (11.5-14.5) % Plt Count (140-400) K/mcL MPV (9.4-12.4) fL Immature Gran % (0-4) % Seg Neutrophils % % Lymphocytes % % Monocytes % % Eosinophils % % Basophils % % Neutrophils # (1.6-8.9) K/mcL Lymphocytes # (0.6-4.6) K/mcL Monocytes # (0.0-1.3) K/mcL Eosinophils # (0.0-0.6) K/mcL Basophils # (0.0-0.2) K/mcL PT (9.4-12.1) Seconds INR Sodium (136-145) mEq/L Potassium (3.5-5.1) mEq/L Chloride (98-107) mEq/L Carbon Dioxide (23-29) mEq/L BUN (8-23) mg/dL Creatinine (0.70-1.30) mg/dL Est GFR ( Amer) (> 60) Est GFR (Non-Af Amer) (> 60) BUN/Creatinine Ratio (6-26) Glucose (70-105) mg/dL Calculated Osmolality (280-300) Calcium (8.6-10.3) mg/dL Troponin I 0.04 H* (< 0.04) ng/mL - Radiology Data Radiology results reviewed: Yes I reviewed the patient's radiology results. - EKG Data EKG #1 EKG attestation: Yes I reviewed and interpreted this EKG. EKG results narrative: EKG obtained at 1200 on 11/14/2018 Heart rate 61 bpm, ID interval 157, QRS duration 139, QT 408, QTC 411 Sinus rhythm with right bundle-branch block. Mild ST segment depression in leads V2 and V3 with inverted T waves in lead 3. These are not significantly changed when compared to previous dated 10/11/2018. Attestation Statement - Attestation Attestation: I, Christ Rivas DO, examined this patient [id number] and my medical decision-making was reviewed with Yvette Hannon DO, Resident Physician. I agree with the documented findings, disposition and treatment plan as described except to the extent set forth below. I personally supervised and was present for the saldaña/critical portions of the procedures completed by the resident documented below. Please see my progress notes for details. 73-year-old male
[2018-12-04 12:47] LABS: Basophils # 0.1 K/mcL (0.0-0.2); Basophils % 0.6 %; Eosinophils # 0.3 K/mcL (0.0-0.6); Eosinophils % 3.2 %; Hematocrit 36.7 % (37.5-50.1); Hemoglobin 13.3 g/dL (12.9-16.9); Immature Granulocytes % 0.2 % (0-4); Lymphocytes # 1.4 K/mcL (0.6-4.6); Lymphocytes % 15.6 %; Mean Corpuscular HGB Conc 36.2 g/dL (31.6-35.5); Mean Corpuscular Hemoglobin 31.7 pg (28.0-33.3); Mean Corpuscular Volume 87.6 fL (83.0-100.0); Mean Platelet Volume 9.3 fL (9.4-12.4); Monocytes # 0.6 K/mcL (0.0-1.3); Monocytes % 6.7 %; Neutrophils # 6.7 K/mcL (1.6-8.9); Platelet Count 189 K/mcL (140-400); Red Blood Count 4.19 M/mcL (4.19-5.50); Red Cell Distribution Width 13.2 % (11.5-14.5); Segmented Neutrophils % 73.7 %
[2018-12-04 12:57] LABS: INR 1.1; Prothrombin Time 12.7 Seconds (9.4-12.1)
[2018-12-04 13:11] LABS: BUN/Creatinine Ratio 20 (6-26); Blood Urea Nitrogen 23 mg/dL (8-23); Carbon Dioxide 26 mEq/L (23-29); Chloride 105 mEq/L (98-107); Glucose 97 mg/dL (70-105); Osmolality,Calculated 290 (280-300); Potassium 4.6 mEq/L (3.5-5.1); Sodium 138 mEq/L (136-145); eGFR For African Americans > 60 (> 60); eGFR For Non-African Americans > 60 (> 60)
--- NOTE | 2018-12-04 13:17 | Emergency Department Note ---
Disposition Clinical Impression: Abnormal stress test, Elevated troponin Disposition: Admitted As Inpatient Condition: Good Referrals: Brandi Boyce MD [Partnered Physician] - Time of Disposition: 15:42 General Adult HPI - General Chief complaint: ED Recheck/Abnormal Lab/Rx Stated complaint: Abnormal Stress Test Time Seen by Provider: 12/04/18 11:46 Source: patient, family Mode of arrival: ambulatory Limitations: no limitations - History of Present Illness Pain Scale: 0 - Related Data Home Medications Medication Instructions Recorded Confirmed Simvastatin [Zocor] 40 mg PO HS 02/09/16 12/04/18 Fish Oil/Dha/Epa [Fish Oil 1,200 1 cap PO QPM 03/03/16 12/04/18 mg Fish Oil] Apixaban [Eliquis] 5 mg PO BID 09/03/18 12/04/18 Lisinopril [Zestril] 40 mg PO DAILY 09/03/18 12/04/18 Insulin NPH Human Isophane 27 units SQ QPM 10/11/18 12/04/18 [Novolin N] Aspirin Enteric Coated [Aspirin EC] 81 mg PO DAILY 12/04/18 12/04/18 Allergies Allergy/AdvReac Type Severity Reaction Status Date / Time No Known Allergies Allergy Verified 12/04/18 11:42 Constitutional: Denies: fever, chills, weakness Cardiovascular: Reports: chest pain, dyspnea on exertion. Denies: palpitations Respiratory: Denies: cough, dyspnea, wheezes Gastrointestinal: Denies: abdominal pain, nausea, vomiting Genitourinary: Denies: dysuria, hematuria Musculoskeletal: Denies: back pain, neck pain Integumentary: Denies: rash Neurological: Denies: headache Endocrine: Denies: fatigue Past Medical History - Past Medical History Medical history: Reports: arthritis, atrial fibrillation, coronary artery disease, CVA, diabetes, GERD, hyperlipidemia, hypertension, myocardial infarction, renal disease, other Surgical history: Reports: angioplasty/stent, carotid endarterectomy, coronary bypass (CABG), orthopedic, other, other Psychiatric history: Reports: no psych history - Social History Smoking Status: Former smoker Smokeless Tobacco Status: No Alcohol use: Reports: none Drug use: Reports: none Physical Exam - General Limitations: no limitations General appearance: alert, in no apparent distress Course Vital Signs Temperature 97.6 F 12/04/18 11:43 Pulse Rate 67 08/21/19 11:43 Respiratory Rate 18 12/04/18 11:43 Blood Pressure 116/70 12/04/18 11:43 O2 Sat by Pulse Oximetry 98 12/04/18 11:43 Temperature 97.6 F 12/04/18 11:43 Pulse Rate 55 12/04/18 12:40 Respiratory Rate 16 12/04/18 12:40 Blood Pressure 112/83 12/04/18 12:40 O2 Sat by Pulse Oximetry 95 12/04/18 12:40 Oxygen Delivery Oxygen Delivery Room Air Medical Decision Making - Lab Data Result diagrams: 12/04/18 12:35 12/04/18 12:35 Lab Results 12/04/18 12/04/18 12/04/18 Range/Units 12:35 12:35 12:35 WBC 9.0 (4.3-11.1) K/mcL RBC 4.19 (4.19-5.50) M/mcL Hgb 13.3 (12.9-16.9) g/dL Hct 36.7 L (37.5-50.1) % MCV 87.6 (83.0-100.0) fL MCH 31.7 (28.0-33.3) pg MCHC 36.2 H (31.6-35.5) g/dL RDW 13.2 (11.5-14.5) % Plt Count 189 (140-400) K/mcL MPV 9.3 L (9.4-12.4) fL Immature Gran % 0.2 (0-4) % Seg Neutrophils % 73.7 % Lymphocytes % 15.6 % Monocytes % 6.7 % Eosinophils % 3.2 % Basophils % 0.6 % Neutrophils # 6.7 (1.6-8.9) K/mcL Lymphocytes # 1.4 (0.6-4.6) K/mcL Monocytes # 0.6 (0.0-1.3) K/mcL Eosinophils # 0.3 (0.0-0.6) K/mcL Basophils # 0.1 (0.0-0.2) K/mcL PT 12.7 H (9.4-12.1) Seconds INR 1.1 Sodium 138 (136-145) mEq/L Potassium 4.6 (3.5-5.1) mEq/L Chloride 105 (98-107) mEq/L Carbon Dioxide 26 (23-29) mEq/L BUN 23 (8-23) mg/dL Creatinine 1.17 (0.70-1.30) mg/dL Est GFR ( Amer) > 60 (> 60) Est GFR (Non-Af Amer) > 60 (> 60) BUN/Creatinine Ratio 20 (6-26) Glucose 97 (70-105) mg/dL Calculated Osmolality 290 (280-300) Calcium 9.0 (8.6-10.3) mg/dL Troponin I (< 0.04) ng/mL 12/04/18 Range/Units 12:35 WBC (4.3-11.1) K/mcL RBC (4.19-5.50) M/mcL Hgb (12.9-16.9) g/dL Hct (37.5-50.1) % MCV (83.0-100.0) fL MCH (28.0-33.3) pg MCHC (31.6-35.5) g/dL RDW (11.5-14.5) % Plt Count (140-400) K/mcL MPV (9.4-12.4) fL Immature Gran % (0-4) % Seg Neutrophils % % Lymphocytes % % Monocytes % % Eosinophils % % Basophils % % Neutrophils # (1.6-8.9) K/mcL Lymphocytes # (0.6-4.6) K/mcL Monocytes # (0.0-1.3) K/mcL Eosinophils # (0.0-0.6) K/mcL Basophils # (0.0-0.2) K/mcL PT (9.4-12.1) Seconds INR Sodium (136-145) mEq/L Potassium (3.5-5.1) mEq/L Chloride (98-107) mEq/L Carbon Dioxide (23-29) mEq/L BUN (8-23) mg/dL Creatinine (0.70-1.30) mg/dL Est GFR ( Amer) (> 60) Est GFR (Non-Af Amer) (> 60) BUN/Creatinine Ratio (6-26) Glucose (70-105) mg/dL Calculated Osmolality (280-300) Calcium (8.6-10.3) mg/dL Troponin I 0.04 H* (< 0.04) ng/mL Attestation Statement - Attestation Attestation: I, Christ Rivas DO, examined this patient [id number] and my medical decision-making was reviewed with Yvette Hannon DO, Resident Physician. I agree with the documented findings, disposition and treatment plan as described except to the extent set forth below. I personally supervised and was present for the saldaña/critical portions of the procedures completed by the resident documented below. Please see my progress notes for details. 73-year-old male presents emergency room for evaluation of abnormal stress test. Patient is been having some exertional angina over the last several weeks. Patient is a history of coronary artery disease that required 4 stents in the past. He also has atrial fibrillation and TIAs. Patient is currently on Eliquis. At this time, the patient is denying chest pain shortness of breath fevers chills nausea vomiting or diarrhea. He has not had any falls trauma or injury. He has been compliant with all his medications as it is at this time. Vital signs are reviewed and are stable. Patient is otherwise resting comfortably in the bed. He has no pain or symptoms while he sitting still but if he gets up to exert himself he does get short of breath. He also has chest pain. Patient was advised come the emergency room for admission secondary to the abnormal stress test today. Lungs are clear heart is regular abdomen is soft. Extremities are normal. Patient will have screening cardiac evaluation with CBC chemistry troponin electrodes collected along with coagulation studies. Chest x-ray and repeat EKG will be collected as well. EKG does not show any acute changes or abnormality at this point. As reviewed by myself in documented in resident physician's note. Patient will be monitored here in the emergency department until interventional cardiology as well as the hospitalist of been contacted for admission. Patient is otherwise stable. See detailed documentation the physical exam, medical intervention, medical decision-making and disposition the resident physician's note. No critical care pad the patient's treatment course at this time. 1515 Patient has negative workup at this time. Hospitalist and cardiology consult. On the patient will be admitted to cardiology service with a consultation to hospital service. All the appropriate groups of been informed. Patient will be admitted this time. He has no other acute symptoms or complaints. Patient is otherwise stable to time of admission
--- NOTE | 2018-12-04 13:46 | Cardiology Consult Note ---
<Antonio Salinas Cuate - Last Filed: 12/04/18 13:43> Date of Encounter: 12/04/18 Time of Encounter: 13:43 Assessment and Plan (1) Abnormal stress test Current Visit: Yes Status: Acute Patient presented from [place] stress lab for severely abnormal stress test. Stress test showed large size, moderate to severe intensity, reversible defect in the inferior, inferiolateral, inferioseptal, and apex consistent with ischemia. Small sized moderate intensity reversible defect in the basal to mid anterolateral segment consistent with ischemia. There is TID. Exercise EKG with ischemic changes in the inferior and anterolateral leads with exercise extending into recovery.Noted to have blunted blood pressure response. Gated EF 51%. Findings suggest multivessel CAD. Patient does have history of CAD s/p prior PCI. Last stent placement in 1999. C/o intermittent chest pain since winter increasing over the last week. Pain occurs with minimal activity. [facility] recommended. R/B/A of [facility] reviewed with patient and he agrees to proceed. Continue asa, statin, and bb. (2) Unstable angina Current Visit: Yes Status: Acute See plan above. (3) CAD (coronary artery disease) Current Visit: Yes Status: Acute H/o CAD s/p 4 cardiac stents. Last stent placed 1999. Qualifiers: Coronary Disease-Associated Artery/Lesion type: [place] artery [place] vs. transplanted heart: [place] heart Associated angina: with unstable angina Qualified Code(s): I25.110 - Atherosclerotic heart disease of [place] coronary artery with unstable angina pectoris (4) Afib Current Visit: No Status: Chronic H/o atrial fibrillation on eliquis. Currently NSR. On eliquis (DVT on xarelto and pradaxa.) Restart eliquis after [facility]. Last dose yesterday evening. Qualifiers: Atrial fibrillation type: paroxysmal Qualified Code(s): I48.0 - Paroxysmal atrial fibrillation Discussion w patient/family: The assessment and plan as outlined above was discussed with the patient and/or family members who expressed understanding and agreement. All questions were answered. Thank you for involving us in the care of your patient. Please call with any questions. History of Present Illness History of present illness: Mr. Smith is a 73 year old male Past Med Surg Social Fam HX - Past Medical History Medical history: arthritis, atrial fibrillation, coronary artery disease, CVA, diabetes, GERD, hyperlipidemia, hypertension, myocardial infarction, renal disease, other Additional medical history: STENTED CAD, TUBULAR ADENOMA OF COLON, CEREBRAL INFARCATION, FRONTOPARIETAL INFARCT, R CAROTID STENOSIS, HETEROZYGAS FOR PROTHROBIN Psychiatric history: no psych history - Past Surgical History Surgical History: angioplasty/stent, carotid endarterectomy, coronary bypass (CABG), orthopedic, other, other Additional surgical history: CARDIAC STENT X4, COLONOSCOPY, R EYE CATARACT SX - Social History Smoking Status: Former smoker Smokeless Tobacco Status: No Alcohol use: none Drug use: none - Family History Father Living Status: Hx Family Cardiac Disorders: Yes Mother Adopted: No Living Status: Still Living Hx Family Neuromuscular Disorders: Yes (Stroke) Medications and Allergies Simvastatin [Zocor] 40 mg PO HS 02/09/16 [History] Fish Oil/Dha/Epa [Fish Oil 1,200 mg Fish Oil] 1 cap PO QAM 03/03/16 [History] Apixaban [Eliquis] 5 mg PO BID 09/03/18 [History] Lisinopril [Zestril] 40 mg PO DAILY 09/03/18 [History] Insulin NPH Human Isophane [Novolin N] 15 units SQ BID 10/11/18 [History] Aspirin Enteric Coated [Aspirin EC] 81 mg PO DAILY 12/04/18 [History] Allergy/AdvReac Type Severity Reaction Status Date / Time No Known Allergies Allergy Verified 12/04/18 11:42 All Systems Review: The remainder of the systems were reviewed and are negative Physical Examination Vital Signs, Last 4 Hours Temp Pulse Resp BP Pulse Ox 12/04/18 12:40 55 16 112/83 95 12/04/18 11:43 97.6 F 67 18 116/70 98 Results 12/04/18 12:35 12/04/18 12:35 Lab Results 12/04/18 12/04/18 12/04/18 12:35 12:35 12:35 WBC 9.0 Hgb 13.3 Hct 36.7 L Plt Count 189 INR 1.1 Sodium 138 Potassium 4.6 Chloride 105 Carbon Dioxide 26 BUN 23 Creatinine 1.17 Glucose 97 Calcium 9.0 Troponin I 12/04/18 12:35 WBC Hgb Hct Plt Count INR Sodium Potassium Chloride Carbon Dioxide BUN Creatinine Glucose Calcium Troponin I 0.04 H* Consult Discharge Plan - Plan Referrals: Brandi Boyce MD [Primary Care Provider] - <FidelKurtis Armando - Last Filed: 12/04/18 20:41> Date of Encounter: 12/04/18 - Attending Attestation I have personally performed a face to face evaluation on this patient. I have reviewed and agree with the documented findings and care plan as documented by the RESULTS TECHNICIAN. 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 It has also been increasing in frequency. Exercise nuclear stress test was positive for ischemia with a high risk findings including TID AAOX3 in NAD at the bedside Hemodynamically stable Cardiopulmonary exam revealed S1, S2, no murmur; clear lungs Rhythm reviewed - sinus rhythm, diffuse ST depressions Echo pending Impression/plan: 1. Unstable angina 2. 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 CAD 4. Afib, long standing For urgent cardiac catheterization. IV heparin. Aspirin 81 mg daily. High intensity statin. Hold Eliquis. Hospitalist consult for medical management Thanks for the consult, please call with questions. Kurtis Prara MD [facility] Assessment and Plan Discussion w patient/family: The assessment and plan as outlined above was discussed with the patient and/or family members who expressed understanding and agreement. All questions were answered. Thank you for involving us in the care of your patient. Please call with any questions. History of Present Illness History of present illness: Mr. Smith is a 73 year old male All Systems Review: The remainder of the systems were reviewed and are negative Physical Examination Vital Signs, Last 4 Hours Temp Pulse Resp BP Pulse Ox 12/04/18 20:29 54 16 153/78 12/04/18 18:36 97.6 F 56 20 156/77 98 12/04/18 18:26 56 12/04/18 18:00 58 16 98 12/04/18 17:45 51 12/04/18 17:28 60 12/04/18 17:00 56 16 161/76 98 12/04/18 16:40 56 16 159/82 98 Results 12/04/18 17:19 12/04/18 12:35 Lab Results 12/04/18 12/04/18 12/04/18 12:35 12:35 12:35 WBC 9.0 Hgb 13.3 Hct 36.7 L Plt Count 189 INR 1.1 Sodium 138 Potassium 4.6 Chloride 105 Carbon Dioxide 26 BUN 23 Creatinine 1.17 Glucose 97 Calcium 9.0 Troponin I 12/04/18 12/04/18 12/04/18 12:35 17:19 17:19 WBC 9.5 Hgb 14.1 Hct 39.5 Plt Count 172 INR 1.1 Sodium Potassium Chloride Carbon Dioxide BUN Creatinine Glucose Calcium Troponin I 0.04 H*
[2018-12-04] MEDS: Aspirin 81 MG TAB.CHEW PO SCH (14:12)
[2018-12-04] MEDS ORDERED: 0.9 % Sodium Chloride 1,000 ML ONE ×2 (14:32→15:27)
[2018-12-04] MEDS ORDERED: Heparin 1,000 UNITS/500 mL 500 ML ONE (14:32)
[2018-12-04] MEDS ORDERED: Nitroglycerin 1,000 MCG/10 ML VIAL IV ONE (14:32)
[2018-12-04] MEDS ORDERED: *HR* Heparin 10,000 UNIT/10 ML VIAL ONE (14:32)
[2018-12-04] MEDS ORDERED: Iopamidol 125 ML INFUS..BTL ONE (15:01)
[2018-12-04] MEDS ORDERED: D5% in Water 1,000 ML IVC PRN (15:18)
[2018-12-04] MEDS ORDERED: Dextrose Gel 15 GM/37.5 ML TUBE PO PRN ×2 (15:18)
[2018-12-04] MEDS ORDERED: *HR* Dextrose 50 % in Water (Syg) 50 ML SYRINGE IVP PRN (15:18)
--- NOTE | 2018-12-04 15:18 | Internal Medicine Consult Note ---
Date of Encounter: 12/04/18 Time of Encounter: 16:40 - Assessment and Plan (1) Abnormal stress test Current Visit: Yes Status: Acute (2) CAD (coronary artery disease) Current Visit: No Status: Acute Qualifiers: Coronary Disease-Associated Artery/Lesion type: [place] artery [place] vs. transplanted heart: [place] heart Associated angina: without angina Qualified Code(s): I25.10 - Atherosclerotic heart disease of [place] coronary artery without angina pectoris (3) Multiple cerebral infarctions Current Visit: No Status: Chronic (4) Afib Current Visit: Yes Status: Chronic Qualifiers: Atrial fibrillation type: paroxysmal Qualified Code(s): I48.0 - Paroxysmal atrial fibrillation (5) Type 2 diabetes mellitus Current Visit: Yes Status: Chronic Qualifiers: Diabetes mellitus retirement insulin use: with retirement use Diabetes mellitus complication status: with circulatory complication Diabetes mellitus complication detail: with other circulatory complications Qualified Code(s): E11.59 - Type 2 diabetes mellitus with other circulatory complications; 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 Patient was noted to have large size moderate to severe intensity reversible perfusion defect throughout the inferior, inferoseptal and inferolateral and apex segments. As such he was sent over here for further workup. Patient will be taken t require left heart catheterization. Cardiology managing. Diabetes mellitus type 2: Will check A1c. Place patient on diabetic diet. Monitor blood sugars. Sliding scale insulin. History of prior CVA: Continue aspirin and statin. Atrial fibrillation: Rate controlled. On anticoagulation with Eliquis. Resume Eliquis after cardiac catheterization. - Time Spent With Patient Total time spent is greater than 50% in coordination of care (as documented) at patient's floor/unit and/or counseling patient: Internal Medicine - CN: HPI - Data of Consult Patient: known to practice within the last 3 years Consult date: 12/04/18 Requesting Physician: Juan Tran MD - Consult Narrative Reason for consult: Diabetes management History of present illness: Mr. Smith is a 73 year old male patient with a history of atrial fibrillation, diabetes mellitus, coronary artery disease, prior CVA who is currently on Eliquis was brought to the ER after having an abnormal stress test. Stress test was done as outpatient at [place] stress lab. Patient had been having intermittent episodes of chest pain with exertion and so stress test was ordered. Patient denies any dizziness or lightheadedness currently. At rest, he is chest pain-free. No shortness of breath. No nausea or vomiting. Patient has previously had 4 cardiac stents placed. Last one was in 1999. Plan is for patient to undergo left heart catheterization. We have been consulted to help manage diabetes. Patient has long-standing history of diabetes and takes NPH insulin. He did not take his dose this morning due to stress test ordered. Past Med Surg Social Fam HX - Past Medical History Medical history: arthritis, atrial fibrillation, coronary artery disease, CVA, diabetes, GERD, hyperlipidemia, hypertension, myocardial infarction, renal disease, other Additional medical history: STENTED CAD, TUBULAR ADENOMA OF COLON, CEREBRAL INFARCATION, FRONTOPARIETAL INFARCT, R CAROTID STENOSIS, HETEROZYGAS FOR PROTHROBIN Psychiatric history: no psych history - Past Surgical History Surgical History: angioplasty/stent, carotid endarterectomy, coronary bypass (CABG), orthopedic, other, other Additional surgical history: CARDIAC STENT X4, COLONOSCOPY, R EYE CATARACT SX - Social History Smoking Status: Former smoker Smokeless Tobacco Status: No Alcohol use: none Drug use: none - Family History Father Living Status: Hx Family Cardiac Disorders: Yes Mother Adopted: No Living Status: Still Living Hx Family Neuromuscular Disorders: Yes (Stroke) All systems: reviewed and no additional remarkable complaints except as stated Internal Medicine - CN: Meds Simvastatin [Zocor] 40 mg PO HS 02/09/16 [History] Fish Oil/Dha/Epa [Fish Oil 1,200 mg Fish Oil] 1 cap PO QAM 03/03/16 [History] Apixaban [Eliquis] 5 mg PO BID 09/03/18 [History] Lisinopril [Zestril] 40 mg PO DAILY 09/03/18 [History] Insulin NPH Human Isophane [Novolin N] 15 units SQ BID 10/11/18 [History] Aspirin Enteric Coated [Aspirin EC] 81 mg PO DAILY 12/04/18 [History] Allergy/AdvReac Type Severity Reaction Status Date / Time No Known Allergies Allergy Verified 12/04/18 11:42 Hospitalist - CN: Exam - Constitutional Vitals: Temp Pulse Resp BP Pulse Ox 97.6 F 55 16 112/83 95 12/04/18 11:43 12/04/18 12:40 12/04/18 12:40 12/04/18 12:40 12/04/18 12:40 Exam: General: Patient is alert, no acute distress, obese, oriented x 3 ENT: Mucous membranes moist Respiratory: Good respiratory effort. Normal breath sounds. No wheezing or crackles. Cardiovascular: Regular rate and rhythm. s1 and s2 normal No clicks, rubs, gallops, or murmurs. No pedal edema Abdomen: Abdomen is soft, nontender. Bowel sounds are present Musculoskeletal: Spontaneously moving all extremities Skin: warm, dry, intact. Neuro: Alert oriented x 3 normal cranial nerves, no focal deficits Internal Medicine - CN: Reslt - Labs CBC & Chem 7: 12/04/18 12:35 12/04/18 12:35 Labs: Short CBC 12/04/18 Range/Units 12:35 WBC 9.0 (4.3-11.1) K/mcL Hgb 13.3 (12.9-16.9) g/dL Hct 36.7 L (37.5-50.1) % Plt Count 189 (140-400) K/mcL Neutrophils # 6.7 (1.6-8.9) K/mcL BMP 12/04/18 12:35 Sodium 138 Potassium 4.6 Chloride 105 Carbon Dioxide 26 BUN 23 Creatinine 1.17 Glucose 97 Calcium 9.0 Cardiac Enzymes 12/04/18 Range/Units 12:35 Troponin I 0.04 H* (< 0.04) ng/mL - ABG Interpretation ABG results: PT/INR, D-dimer PT 12.7 Seconds (9.4-12.1) H 12/04/18 12:35 - EKG Data -: EKG Interpreted by Myself EKG shows normal: sinus rhythm Rate: bradycardia - Impressions Impressions Chest X-Ray 12/04/18 11:46 IMPRESSION: No acute cardiopulmonary disease. D/ / 12/04/2018 12:11:20 Sravani Roy MD / cris Interpreting Provider: Sravani Roy MD Consult Discharge Plan - Plan Referrals: Brandi Boyce MD [Primary Care Provider] -
[2018-12-04] MEDS ORDERED: *HR* FentaNYL (PF) 100 MCG/2 ML VIAL ONE (15:27)
[2018-12-04] MEDS ORDERED: *HR* Midazolam HCl 2 MG/2 ML VIAL ONE (15:27)
--- NOTE | 2018-12-04 16:10 | Pre-Sedation Evaluation ---
Pre-sedation evaluation - Pre-sedation checklist Date of procedure: 12/04/18 Procedure: Heart Cath Recent Vitals: Last Vital Signs Temp 97.6 F 12/04/18 11:43 Pulse 55 12/04/18 12:40 Resp 16 12/04/18 12:40 BP 112/83 12/04/18 12:40 Pulse Ox 95 12/04/18 12:40 H&P (including ROS) documented in medical record: Yes Previous reaction to sedatives/anesthetics: No Dietary Status: NPO after Midnight Dentition: No loose teeth or bridges ASA Classification *see protocol: CLASS II-Mild systemic disease Plan of Care: Pt appropriate candidate for procedure/moderate/conscious sedation, Risks/benefits of procedure/sedation discussed w/ patient/family Cardiac Registry (Cardio Only) - Functional Capacity Functional Capacity: >=4 METS with symptoms - Clincal Frailty Scale Clinical Frailty Scale: Managing Well
--- NOTE | 2018-12-04 16:22 | Invasive Diagnostic Lab Proc ---
Name: David Smith Date of Study: 12/04/2018 Date: 1945 Ht: 65.0in Medical Record#: [id number] Age: 73 Wt: 209.99lb Gender: Male BSA: 2.02 Order #: [id number] BMI: 34.99 Physicians Procedure Physician: Juan Tran MD, [facility] Referring MD: Referring MD: Staff Name Position Time In Allan Hooper RT (R) Scrub 03:28 PM Angela Wang RT (R) Monitor 03:28 PM Guy Freeman RN RN 04:03 PM Yasmine Phelan RN Bricklayer Helper 04:14 PM Indications Indication Other-Abnormal Test - Stress Procedures Performed Procedure L HRT ARTERY/VENTRICLE ANGIO Pre-Procedure Checklist Informed consent is complete signed and on chart. H&P is on chart. ID band is on and ID verified with patient. Patient NPO for procedure The procedure was described for the patient and questions were answered. Blood Pressure: 112/83 ECG is on chart. Rhythm: Sinus Bradycardia Plan of Care Patient will tolerate the procedure without complications. Adequate level of comfort will be maintained. Hemodynamics will remain stable Patient will recover from procedure without complications. Respiratory function will be maintained. Cardiac rhythm will remain stable. Patient temperature will be maintained. Patient and/or family have verbalized understanding of the procedure. Patient Education Chief Complaint/Reason for Test: Cardiac Cath Developmental Category: Geriatric (65+ years) Developmentally Appropriate for Age: Yes Learning Barriers: None Education Needs: Procedure Education Method: Verbal Information Taught: Cardiac Cath Educational Evaluation: Able to repeat information Intravenous Access Time IV Size Location DC'd Fluid/Drip Rate Units RN 20g 1 04/19" Patent On Arrival Rt Hand Allergies No Known Allergies Vital Signs Time BP (mmHg) HR (bpm) O2 Sat. RR (bpm) LOC 112 / 83 55 95 % 16 5 = Fully awake and oriented or at pre-proc level 03:36 PM / % 5 = Fully awake and oriented or at pre-proc level 03:36 PM / % 4 = Oriented but drowsy Procedural Medications Time Medication Dose Units Method Given By 03:28 PM Oxygen 2 L/min nasal cannula Yasmine Phelan RN 03:32 PM Versed 2 mg Intravenous Yasmine Phelan RN 03:32 PM Fentanyl 50 mcg Intravenous Yasmine Phelan RN 03:45 PM Lidocaine 2% 0.5 ml Subcutaneous Juan Tran MD, [facility] 03:46 PM Heparin 4000 units Nitroglycerin 200 mcg Verapamil 2.5 mg Intraarterial Juan Tran MD, [facility] ASA Classification: CLASS II- Mild systemic disease (i.e. well-controlled diabetes, hypertension, asthma, cigarette smoking) Birgit Score Preprocedure Postprocedure Activity 2- Moves 4 extremities sustained head lift Activity 2- Moves 4 extremities sustained head lift Circulation 2- SBP +/= 20 points of pre-anesthetic level Circulation 2- SBP +/= 20 points of pre-anesthetic level Consciousness 2- Awake and alert oriented x 3 Consciousness 2- Awake and alert oriented x 3 O2 Saturation 2- Able to maintain O2 satruation of 92% on room air O2 Saturation 2- Able to maintain O2 satruation of 92% on room air Respiratory 2- Able to deep breathe and cough well Respiratory 2- Able to deep breathe and cough well Total Score 10 Total Score 10 Contrast Agent: Isovue Diagnostic Contrast: 51 ml Total Contrast: 51 ml Fluoro Dose: 24 mGy Procedure Log Time Note Enter By 03:25 PM Physician arrived 15:25 oparker 03: PM Meet and greet completed oparker 03:25 PM Sign in performed according to hospital policy. Informed consent was obtained. oparker 03: PM Pt arrived to quality assurance qa lab technician 2 at 15:26 oparker 03: PM Patient charges- Angio tray pack, Navilyst 3mm J, Pulse Oximetry and ACIST tubing and transducer oparker 03:27 PM Hair removed from procedure site in procedure lab using clippers. Right wrist and Right groin prepped with Chloraprep by Allan Hooper RT (R), then patient was draped. Skin intact. oparker 03:27 PM Procedure start 15: oparker 03:28 PM Yasmine Phelan RN Position: Bricklayer Helper Time in: 16:14 oparker 03:28 PM Time: 15:28 Oxygen on at 2 L/min per nasal cannula by Yasmine Phelan RN oparker 03:28 PM Allan Hooper RT (R) Position: Scrub Time in: 15:28 oparker 03:28 PM Angela Wang RT (R) Position: Monitor Time in: 15:28 oparker 03:32 PM Time: 15:32 Versed 2 mg Intravenous Given by Yasmine Phelan RN oparrey 03:32 PM Time: 15:32 Fentanyl 50 mcg Intravenous Given by Yasmien Phelan RN oparker 03:36 PM Time: 15:36 Patient comfortable and pain free: Yes oparker 03:36 PM Time: 15:36LOC: 5 = Fully awake and oriented or at pre-proc level oparker 03:44 PM Time out was performed according to hospital policy. Conscious sedation and anesthesia was achieved (see medication log with in this report above) oparker 03:45 PM ASA Class CLASS II- Mild systemic disease (i.e. well-controlled diabetes, hypertension, asthma, cigarette smoking) oparker 03:45 PM Time: 15:45 .5 ml Lidocaine 2% to right radial Subcutaneous Given by Juan Tran MD, [facility] oparker 03:45 PM Access obtained by percutaneous puncture. 5/6Fr 10cm Terumo Glidesheath sheath placed in right Radial artery. [id number] oparker 03:46 PM Time: 15:46 Patient given 4,000 units Heparin, 200 mcg Nitroglycerin, and 2.5 mg Verapamil Intraarterial by Juan Tran MD, [facility]. This is given to reduce risk of vessel spasm and thrombosis. oparker 03:46 PM 0.035 260cm Navilyst 3mmJ wire [id number] oparker 03:47 PM 5Fr TIG catheter inserted over the wire DN oparker 03:48 PM LCA angiography performed in multiple views. oparker 03:49 PM RCA angiography performed in multiple views. oparker 03:51 PM Time: 15:36 Patient comfortable and pain free: Yes oparker 03:51 PM Time: 15:36LOC: 4 = Oriented but drowsy oparker 03:51 PM Catheter removed oparker 03:52 PM 5Fr Pigtail catheter inserted over the wire DNC oparker 03:53 PM Catheter removed oparker 03:54 PM 5Fr Angled pigtail catheter inserted over the wire [id number] oparker 03:55 PM Catheter crossed the aortic valve and was selectively placed in the left ventricle. Pressures recorded on pullback for left heart catheterization. oparker 03:56 PM Bolus angiogram of left Ventricle complete: 12 ml/sec for a total of 35 mls oparker 03:56 PM Coronary Dominance: right oparker 03:58 PM Catheter removed oparker 03:58 PM Wire removed oparker 03:58 PM Procedure completed at 15:58 12/04/2018 oparker 03:58 PM Did you address MELLISA flow and Dominance? YesCoronary Dominance: right oparker 03:59 PM Sign out completed: Radiation Dose 197.73 mGy, 24.5 Gy/cm2 Fluoro Time: 2.3 Isovue 370 - 200ml contrast 51 ml given by Juan Tran MD, [facility]. Complications: None. 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 Sedation minutes 26. Cardiac Rehab Consult needed: Yes. Confirmed administered medications: Yes oparker 03:59 PM Isovue 370 - 150ml,2 Bottle(s) used. oparker 04:00 PM Arterial sheath pulled, Vasc Band closure device used and was Successful S/N. oparker 04:00 PM 12 ml air in Vasc Band. oparker 04:00 PM Estimated Blood Loss: minimal oparker 04:00 PM Post ECG Sinus Bradycardia oparker 04:00 PM Post Blood Pressure 132/69 oparker 04:01 PM Information taught Cardiac Cath and Vasc Band oparker 04:01 PM Education needs Procedure, Plan of Care, and Responsibilities of Patient in Care oparker 04:01 PM Learning barriers :None oparker 04:01 PM Education Methods Verbal oparker 04:01 PM Education evaluation Able to repeat information oparker 04:01 PM Site status No bleeding/ No Hematoma - Rt Wrist as reported by Allan Hooper RT (R) at 16:01 oparker 04:01 PM Opsite applied oparker 04:02 PM Conversation between Interventionalist and CT Surgeon. oparker 04:02 PM Lesion found in Proximal RCA. Pre Stenosis: 95 Pre MELLISA Flow: oparker 04:02 PM Lesion found in Mid RCA. Pre Stenosis: 99 Pre MELLISA Flow: oparker 04:03 PM Guy Freeman RN Position: RN Time in: 16:03 oparker 04:04 PM Lesion found in Distal RCA. Pre Stenosis: 80 Pre MELLISA Flow: oparker 04:04 PM Lesion found in Proximal LMCA. Pre Stenosis: 70 Pre MELLISA Flow: oparker 04:04 PM Lesion found in Mid LAD. Pre Stenosis: 100 Pre MELLISA Flow: oparker 04:04 PM Lesion found in 1st Diagonal. Pre Stenosis: 70 Pre MELLISA Flow: oparker 04:05 PM Lesion found in Proximal Circumflex. Pre Stenosis: 95 Pre MELLISA Flow: oparker 04:05 PM Lesion found in Distal Circumflex. Pre Stenosis: 80 Pre MELLISA Flow: oparker 04:07 PM Proximal Left Anterior Descending Coronary Artery with 70% stenosis. If graft is supplying this territory, 0 % stenosis. oparker 04:07 PM Mid/Distal Left Anterior Descending Coronary Artery and diagonal branches with 100% stenosis. If graft is supplying this area, 0 % stenosis oparker 04:07 PM Circumflex, Obtuse Marginal, Left Posterior Descending, and Left Posterolateral Coronary Arteries with 95 % stenosis. If graft is supplying this area, 0 % stenosis oparker 04:07 PM Right Coronary, Right Posterior Descending Arteries with Right Posterolateral and Acute Marginal branches with 99 % stenosis. If graft is supplying this area, 0 % stenosis oparker 04:08 PM Patient out of room: 16:08 andreaker Complications Complication None Post Procedure Information Blood Pressure: 132/69 mmHg Rhythm: Sinus Bradycardia Post procedural instructions were given Surgery consult for CABG Closure Device Time Device Success/Fail 12/04/2018 4:08:00 PM Mechanical Compression Successful Site Checks Time Location Status Staff Sheath In? Note 04:01 PM Rt Wrist No bleeding/ No Hematoma Allan Hooper RT (R) Pulses Updated by Guy Freeman RN on 12/04/2018 4:15:11 PM electronically signed on 12/04/2018 4:15:45 PM with status of Final
--- NOTE | 2018-12-04 16:27 | Invasive Diagnostic Lab Proc ---
Name: David Smith Date of Study: 12/04/2018 Date: 1945 Ht: 65.0in Medical Record#: [id number] Age: 73 Wt: 209.99lb Gender: Male BSA: 2.02 Order #: [id number] BMI: 34.99 Physicians Procedure Physician: Juan Tran MD, [facility] Referring MD: Referring MD: Staff Name Position Time In Allan Hooper RT (R) Scrub 03:28 PM Angela Wagn RT (R) Monitor 03:28 PM Guy Freeman RN RN 04:03 PM Yasmine Phelan RN Integrity Specialist 04:14 PM Indications Indication Other-Abnormal Test - Stress Procedures Performed Procedure L HRT ARTERY/VENTRICLE ANGIO Pre-Procedure Checklist Informed consent is complete signed and on chart. H&P is on chart. ID band is on and ID verified with patient. Patient NPO for procedure The procedure was described for the patient and questions were answered. Blood Pressure: 112/83 ECG is on chart. Rhythm: Sinus Bradycardia Plan of Care Patient will tolerate the procedure without complications. Adequate level of comfort will be maintained. Hemodynamics will remain stable Patient will recover from procedure without complications. Respiratory function will be maintained. Cardiac rhythm will remain stable. Patient temperature will be maintained. Patient and/or family have verbalized understanding of the procedure. Patient Education Chief Complaint/Reason for Test: Cardiac Cath Developmental Category: Geriatric (65+ years) Developmentally Appropriate for Age: Yes Learning Barriers: None Education Needs: Procedure Education Method: Verbal Information Taught: Cardiac Cath Educational Evaluation: Able to repeat information Intravenous Access Time IV Size Location DC'd Fluid/Drip Rate Units RN 20g 1 04/19" Patent On Arrival Rt Hand Allergies No Known Allergies Vital Signs Time BP (mmHg) HR (bpm) O2 Sat. RR (bpm) LOC 112 / 83 55 95 % 16 5 = Fully awake and oriented or at pre-proc level 03:36 PM / % 5 = Fully awake and oriented or at pre-proc level 03:36 PM / % 4 = Oriented but drowsy 03:31 PM 161 / 78 57 100 % 12 03:35 PM 148 / 66 59 91 % 20 03:41 PM 126 / 64 56 97 % 24 03:46 PM 128 / 66 57 96 % 22 03:49 PM 106 / 63 69 95 % 20 03:50 PM 114 / 65 73 98 % 18 03:55 PM 121 / 61 66 96 % 19 04:00 PM 132 / 69 60 97 % Procedural Medications Time Medication Dose Units Method Given By 03:28 PM Oxygen 2 L/min nasal cannula Yasmine Phelan RN 03:32 PM Versed 2 mg Intravenous Yasmine Phelan RN 03:32 PM Fentanyl 50 mcg Intravenous Yasmine Phelan RN 03:45 PM Lidocaine 2% 0.5 ml Subcutaneous Juan Tran MD, [facility] 03:46 PM Heparin 4000 units Nitroglycerin 200 mcg Verapamil 2.5 mg Intraarterial Juan Tran MD, [facility] ASA Classification: CLASS II- Mild systemic disease (i.e. well-controlled diabetes, hypertension, asthma, cigarette smoking) Birgit Score Preprocedure Postprocedure Activity 2- Moves 4 extremities sustained head lift Activity 2- Moves 4 extremities sustained head lift Circulation 2- SBP +/= 20 points of pre-anesthetic level Circulation 2- SBP +/= 20 points of pre-anesthetic level Consciousness 2- Awake and alert oriented x 3 Consciousness 2- Awake and alert oriented x 3 O2 Saturation 2- Able to maintain O2 satruation of 92% on room air O2 Saturation 2- Able to maintain O2 satruation of 92% on room air Respiratory 2- Able to deep breathe and cough well Respiratory 2- Able to deep breathe and cough well Total Score 10 Total Score 10 Contrast Agent: Isovue Diagnostic Contrast: 51 ml Total Contrast: 51 ml Fluoro Dose: 24 mGy Procedure Log Time Note Enter By 03:25 PM Physician arrived 15:25 oparker 03:25 PM Meet and greet completed oparker 03:25 PM Sign in performed according to hospital policy. Informed consent was obtained. oparker 03:26 PM Pt arrived to laboratory scientist 2 at 15:26 oparker 03:26 PM Patient charges- Angio tray pack, Navilyst 3mm J, Pulse Oximetry and ACIST tubing and transducer oparker 03:27 PM Hair removed from procedure site in procedure lab using clippers. Right wrist and Right groin prepped with Chloraprep by Allan Hooper (R), then patient was draped. Skin intact. oparker 03:27 PM Procedure start 15:27 oparker 03:28 PM Yasmine Phelan RN Position: Integrity Specialist Time in: 16:14 oparker 03:28 PM Time: 15:28 Oxygen on at 2 L/min per nasal cannula by Yasmine Phelan RN oparker 03:28 PM Allan Hooper RT (R) Position: Scrub Time in: 15:28 oparker 03:28 PM Angela Wang RT (R) Position: Monitor Time in: 15:28 oparker 03:29 PM CathStat 03:29 PM Vitals capture started with the following parameters, Patient=Adult, Interval=5 min, Initial Ablijrpr=359 mmHg, Deflation Rate=3 mmHg, Cuff placed on Right Arm 03:30 PM Recorded ECG: HR=60 Condition=Condition 1 03:31 PM HR=57 bpm, UGAW=533/78 mmhg, DoQ6=282.0 %, Resp=12 B/min 03:32 PM Time: 15:32 Versed 2 mg Intravenous Given by Yasmine Phelan RN oparrey 03:32 PM Time: 15:32 Fentanyl 50 mcg Intravenous Given by Yasmine Phelan RN oparrey 03:35 PM HR=59 bpm, WFFT=965/66 mmhg, SpO2=91.0 %, Resp=20 B/min 03:36 PM Time: 15:36 Patient comfortable and pain free: Yes oparker 03:36 PM Time: 15:36LOC: 5 = Fully awake and oriented or at pre-proc level oparker 03:39 PM Pressure channel 1 zeroed. 03:41 PM HR=56 bpm, NUPE=656/64 mmhg, SpO2=97.0 %, Resp=24 B/min 03:44 PM Time out was performed according to hospital policy. Conscious sedation and anesthesia was achieved (see medication log with in this report above) oparker 03:45 PM ASA Class CLASS II- Mild systemic disease (i.e. well-controlled diabetes, hypertension, asthma, cigarette smoking) oparker 03:45 PM Time: 15:45 .5 ml Lidocaine 2% to right radial Subcutaneous Given by Juan Tran MD, [facility] oparker 03:45 PM Access obtained by percutaneous puncture. 5/6Fr 10cm Terumo Glidesheath sheath placed in right Radial artery. [id number] oparker 03:46 PM Time: 15:46 Patient given 4,000 units Heparin, 200 mcg Nitroglycerin, and 2.5 mg Verapamil Intraarterial by Juan Tran MD, [facility]. This is given to reduce risk of vessel spasm and thrombosis. oparker 03:46 PM 0.035 260cm Navilyst 3mmJ wire [id number] oparker 03:46 PM HR=57 bpm, ZUDM=245/66 mmhg, SpO2=96.0 %, Resp=22 B/min 03:47 PM 5Fr TIG catheter inserted over the wire DNC oparker 03:48 PM Recorded Pressure: Ao, HR=63, Condition=Condition 1 (Aorta) Ao 78/44/58 03:48 PM Recorded Pressure: Ao, HR=63, Condition=Condition 1 (Aorta) Ao 77/-13/24 03:48 PM LCA angiography performed in multiple views. oparker 03:48 PM NIBP STAT measurement started. 03:49 PM HR=69 bpm, DJQH=110/63 mmhg, SpO2=95.0 %, Resp=20 B/min 03:49 PM RCA angiography performed in multiple views. oparker 03:49 PM Recorded Pressure: Ao, HR=75, Condition=Condition 1 (Aorta) Ao 80/48/63 03:50 PM HR=73 bpm, RQSY=727/65 mmhg, SpO2=98 %, Resp=18 B/min 03:51 PM Time: 15:36 Patient comfortable and pain free: Yes oparker 03:51 PM Time: 15:36LOC: 4 = Oriented but drowsy oparker 03:51 PM Catheter removed oparker 03:52 PM 5Fr Pigtail catheter inserted over the wire [facility] oparker 03:53 PM Catheter removed oparker 03:54 PM 5Fr Angled pigtail catheter inserted over the wire [id number] oparker 03:55 PM Catheter crossed the aortic valve and was selectively placed in the left ventricle. Pressures recorded on pullback for left heart catheterization. oparker 03:55 PM Pressure channel 1 zero failed. 03:55 PM Pressure channel 1 zeroed. 03:55 PM Recorded Pressure: LV, HR=62, Condition=Condition 1 (Left Ventricle) LV 123/9/14 03:55 PM HR=66 bpm, JZNL=071/61 mmhg, SpO2=96.0 %, Resp=19 B/min 03:56 PM Bolus angiogram of left Ventricle complete: 12 ml/sec for a total of 35 mls oparker 03:56 PM Coronary Dominance: right oparker 03:57 PM Recorded Pressure: LV, Ao, HR=64, Condition=Condition 1 (Left Ventricle) LV 132/9/24, (Aorta) Ao 129/65/90 03:58 PM Catheter removed oparker 03:58 PM Wire removed oparker 03:58 PM Procedure completed at 15:58 12/04/2018 oparker 03:58 PM Did you address MELLISA flow and Dominance? YesCoronary Dominance: right oparker 03:59 PM Sign out completed: Radiation Dose 197.73 mGy, 24.5 Gy/cm2 Fluoro Time: 2.3 Isovue 370 - 200ml contrast 51 ml given by Juan Tran MD, [facility]. Complications: None. 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 Sedation minutes 26. Cardiac Rehab Consult needed: Yes. Confirmed administered medications: Yes oparker 03:59 PM Isovue 370 - 150ml,2 Bottle(s) used. oparker 04:00 PM Arterial sheath pulled, Vasc Band closure device used and was Successful S/N. oparker 04:00 PM 12 ml air in Vasc Band. oparker 04:00 PM Estimated Blood Loss: minimal oparker 04:00 PM Post ECG Sinus Bradycardia oparker 04:00 PM HR=60 bpm, BJWS=849/69 mmhg, SpO2=97.0 % 04:00 PM Post Blood Pressure 132/69 oparker 04:01 PM Information taught Cardiac Cath and Vasc Band oparker 04:01 PM Education needs Procedure, Plan of Care, and Responsibilities of Patient in Care oparker 04:01 PM Learning barriers :None oparker 04:01 PM Education Methods Verbal oparker 04:01 PM Education evaluation Able to repeat information oparker 04:01 PM Site status No bleeding/ No Hematoma - Rt Wrist as reported by Allan Hooper RT (R) at 16:01 oparker 04:01 PM Opsite applied oparker 04:02 PM Conversation between Interventionalist and CT Surgeon. oparker 04:02 PM Lesion found in Proximal RCA. Pre Stenosis: 95 Pre MELLISA Flow: oparker 04:02 PM Lesion found in Mid RCA. Pre Stenosis: 99 Pre MELLISA Flow: oparker 04:03 PM Guy Freeman RN Position: RN Time in: 16:03 oparker 04:04 PM Lesion found in Distal RCA. Pre Stenosis: 80 Pre MELLISA Flow: oparker 04:04 PM Lesion found in Proximal LMCA. Pre Stenosis: 70 Pre MELLISA Flow: oparker 04:04 PM Lesion found in Mid LAD. Pre Stenosis: 100 Pre MELLISA Flow: oparker 04:04 PM Lesion found in 1st Diagonal. Pre Stenosis: 70 Pre MELLISA Flow: oparker 04:05 PM Lesion found in Proximal Circumflex. Pre Stenosis: 95 Pre MELLISA Flow: oparker 04:05 PM Lesion found in Distal Circumflex. Pre Stenosis: 80 Pre MELLISA Flow: oparker 04:05 PM Vitals capture stopped. 04:07 PM Proximal Left Anterior Descending Coronary Artery with 70% stenosis. If graft is supplying this territory, 0 % stenosis. oparker 04:07 PM Mid/Distal Left Anterior Descending Coronary Artery and diagonal branches with 100% stenosis. If graft is supplying this area, 0 % stenosis oparker 04:07 PM Circumflex, Obtuse Marginal, Left Posterior Descending, and Left Posterolateral Coronary Arteries with 95 % stenosis. If graft is supplying this area, 0 % stenosis oparker 04:07 PM Right Coronary, Right Posterior Descending Arteries with Right Posterolateral and Acute Marginal branches with 99 % stenosis. If graft is supplying this area, 0 % stenosis oparker 04:08 PM Patient out of room: 16:08 beti Complications Complication None Hemodynamics Pressures Site Systolic/A Wave Diastolic/V Wave Mean AO 78 44 58 AO 77 -13 24 AO 80 48 63 LV 123 9 14 LV 132 9 24 AO 129 65 90 Post Procedure Information Blood Pressure: 132/69 mmHg Rhythm: Sinus Bradycardia Post procedural instructions were given Surgery consult for CABG Closure Device Time Device Success/Fail 12/04/2018 4:08:00 PM Mechanical Compression Successful Site Checks Time Location Status Staff Sheath In? Note 04:01 PM Rt Wrist No bleeding/ No Hematoma Allan Hooper RT (R) Pulses Updated by RT Cris IversonR) on 12/04/2018 4:19:05 PM electronically signed on 12/04/2018 4:19:40 PM with status of Final
[2018-12-04] MEDS ORDERED: *HR* Heparin 5,000 UNIT/ML VIAL IVP ONE (16:59)
[2018-12-04] MEDS ORDERED: *HR* Heparin 5,000 UNIT/ML VIAL IVP PRN ×2 (16:59)
[2018-12-04] MEDS ORDERED: Heparin 25,000 UNIT/250 ML D5W 25,000 UNIT/250 ML IV.SOLN IVC SCH (17:00)
[2018-12-04] MEDS: Insulin LISPRO 300 UNITS/3 ML VIAL SQ SCH ×2 (17:08→20:24)
--- NOTE | 2018-12-04 17:13 | Cardiothoracic Consult Note ---
Date of Encounter: 12/04/18 Time of Encounter: 17:07 Assessment and Plan (1) CAD (coronary artery disease) Current Visit: No Status: Acute The assessment and plan as outlined above was discussed with the patient and/or family members who expressed understanding and agreement. All questions were answered. The patient has left main disease and triple-vessel disease with angina and a positive stress test. The right coronary artery, circumflex coronary artery and diagonal branches appear graftable. I discussed possible coronary artery bypass grafting with the patient and his . The procedure, its risks, benefits and alternatives were explained and they do wish to proceed. We will stop the Eliquis and he will need to be off it for 5 days. He can be maintained on a heparin drip and tentatively we will schedule the surgery for Sunday. Qualifiers: Coronary Disease-Associated Artery/Lesion type: [place] artery [place] vs. transplanted heart: [place] heart Associated angina: without angina Qualified Code(s): I25.10 - Atherosclerotic heart disease of [place] coronary artery without angina pectoris - History of Present Illness History of present illness: Mr. Smith is a 73 year old male The patient is a 73-year-old gentleman who presented with angina with exertion. He had a positive stress test. Ejection fraction was 51%. Troponin was 0.04. Echocardiogram done in September revealed ejection fraction of 65% with mild tricuspid regurgitation. Cardiac catheterization done today revealed an ejection fraction of 60% with triple-vessel disease. He had a 70% left main lesion. 100% LAD. 70% diagonal. 95% circumflex. 95% right coronary artery. The LAD did not fill well and may or may not be graftable, but the other 3 appeared graftable. He has a history of hypertension, hypercholesterolemia and diabetes on insulin. He does have a history of 3 strokes, but no motor or sensory sequelae. He states he has some short-term memory problems and difficulty finding words. He has a history of atrial fibrillation, but this was found on a 24-hour recorder. He has not noticed any irregular heart rate or fluttering in his chest. He has been on Eliquis and took some yesterday. Ca rotid duplex in September revealed the left carotid was 40-59% in the right carotid was nonstenotic. Social history. He lives with his in [place]. He used to smoke up to 3 packs per day but quit 25 years ago. Does not drink alcohol. Review of systems is notable for no history of saphenous vein varicosities or vein strippings. Past Med Surg Social Fam HX - Past Medical History Medical history: arthritis, atrial fibrillation, coronary artery disease, CVA, diabetes, GERD, hyperlipidemia, hypertension, myocardial infarction, renal disease, other Additional medical history: STENTED CAD, TUBULAR ADENOMA OF COLON, CEREBRAL INFARCATION, FRONTOPARIETAL INFARCT, R CAROTID STENOSIS, HETEROZYGAS FOR PROTHR OBIN Psychiatric history: no psych history - Past Surgical History Surgical History: angioplasty/stent, carotid endarterectomy, coronary bypass (CABG), orthopedic, other, other Additional surgical history: CARDIAC STENT X4, COLONOSCOPY, R EYE CATARACT SX - Social History Smoking Status: Former smoker Smokeless Tobacco Status: No Alcohol use: none Drug use: none - Family History Father Living Status: Hx Family Cardiac Disorders: Yes Mother Adopted: No Living Status: Still Living Hx Family Neuromuscular Disorders: Yes (Stroke) Medications and Allergies Simvastatin [Zocor] 40 mg PO HS 02/09/16 [History] Fish Oil/Dha/Epa [Fish Oil 1,200 mg Fish Oil] 1 cap PO QAM 03/03/16 [History] Apixaban [Eliquis] 5 mg PO BID 09/03/18 [History] Lisinopril [Zestril] 40 mg PO DAILY 09/03/18 [History] Insulin NPH Human Isophane [Novolin N] 15 units SQ BID 10/11/18 [History] Aspirin Enteric Coated [Aspirin EC] 81 mg PO DAILY 12/04/18 [History] Allergy/AdvReac Type Severity Reaction Status Date / Time No Known Allergies Allergy Verified 12/04/18 11:42 All Systems Review: The remainder of the systems were reviewed and are negative Physical Examination Vital Signs, Last 4 Hours Temp Pulse Resp BP Pulse Ox 12/04/18 16:40 56 16 159/82 98 12/04/18 16:23 97.7 F 58 17 158/76 98 12/04/18 16:20 58 17 158/76 98 He is status post bilateral cataract surgery. No oral lesions. Neck is supple. Trachea in the midline. No thyromegaly or carotid bruits. He is status post right carotid endarterectomy and has a well-healed scar. Lungs are clear to percussion and auscultation. Heart is in a regular rate and rhythm. EKG reveals sinus bradycardia. Abdomen is benign. No tenderness, rebound or guarding. Extremities without edema. No saphenous vein varicosities or strippings. Cranial nerves, motor and sensory intact. Results 12/04/18 12:35 12/04/18 12:35 Lab Results, Last 24 hours 12/04/18 12/04/18 12/04/18 12:35 12:35 12:35 WBC 9.0 Hgb 13.3 Hct 36.7 L Plt Count 189 INR 1.1 Sodium 138 Potassium 4.6 Chloride 105 Carbon Dioxide 26 BUN 23 Creatinine 1.17 Glucose 97 Calcium 9.0 Troponin I 12/04/18 12:35 WBC Hgb Hct Plt Count INR Sodium Potassium Chloride Carbon Dioxide BUN Creatinine Glucose Calcium Troponin I 0.04 H* Consult Discharge Plan - Plan Referrals: Brandi Boyce MD [Primary Care Provider] -
[2018-12-04 17:34] LABS: Hematocrit 39.5 % (37.5-50.1); Hemoglobin 14.1 g/dL (12.9-16.9); Mean Corpuscular HGB Conc 35.7 g/dL (31.6-35.5); Mean Corpuscular Hemoglobin 31.5 pg (28.0-33.3); Mean Corpuscular Volume 88.2 fL (83.0-100.0); Platelet Count 172 K/mcL (140-400); Red Blood Count 4.48 M/mcL (4.19-5.50); Red Cell Distribution Width 13.4 % (11.5-14.5); White Blood Count 9.5 K/mcL (4.3-11.1)
[2018-12-04 17:47] LABS: Heparin anti-factor XA UFH 0.67 IU/mL (0.30-0.70)
[2018-12-04 17:48] LABS: INR 1.1; Prothrombin Time 12.4 Seconds (9.4-12.1)
[2018-12-04] MEDS: Lisinopril 20 MG TABLET PO SCH (18:58)
[2018-12-04] MEDS: Heparin 25,000 UNIT/250 ML D5W 25,000 UNIT/250 ML IV.SOLN IVC SCH (22:28)
--- NOTE | 2018-12-05 06:34 | Electrocardiograph Report ---
[facility] Test Date: 2018-12-04 Pat Name: David Smith Department: EXAM7 Room: 2NE20 Gender: M Top Flavor Attendant: : 1945 Requested By: Yvette Hannon Order Number: [id number] Reading MD: Tray Neely Measurements Intervals [place] Rate: 61 P: 32 AR: 157 QRS: 53 QRSD: 139 T: -1 QT: 408 QTc: 411 Interpretive Statements Sinus rhythm Right bundle branch block Baseline wander in lead(s) I II aVR Electronically Signed On 12-05-2018 6:33:06 EDT by Tray Neely
[2018-12-05 07:12] LABS: Basophils # 0.1 K/mcL (0.0-0.2); Basophils % 0.9 %; Eosinophils # 0.3 K/mcL (0.0-0.6); Eosinophils % 4.2 %; Hematocrit 38.8 % (37.5-50.1); Hemoglobin 13.7 g/dL (12.9-16.9); Immature Granulocytes % 0.3 % (0-4); Lymphocytes # 1.4 K/mcL (0.6-4.6); Lymphocytes % 19.7 %; Mean Corpuscular HGB Conc 35.3 g/dL (31.6-35.5); Mean Corpuscular Hemoglobin 31.6 pg (28.0-33.3); Mean Corpuscular Volume 89.4 fL (83.0-100.0); Mean Platelet Volume 9.8 fL (9.4-12.4); Monocytes # 0.5 K/mcL (0.0-1.3); Monocytes % 7.5 %; Neutrophils # 4.7 K/mcL (1.6-8.9); Platelet Count 175 K/mcL (140-400); Red Blood Count 4.34 M/mcL (4.19-5.50); Red Cell Distribution Width 13.2 % (11.5-14.5); Segmented Neutrophils % 67.4 %; White Blood Count 6.9 K/mcL (4.3-11.1)
[2018-12-05 07:27] LABS: BUN/Creatinine Ratio 20 (6-26); Blood Urea Nitrogen 22 mg/dL (8-23); Calcium 9.2 mg/dL (8.6-10.3); Carbon Dioxide 23 mEq/L (23-29); Chloride 103 mEq/L (98-107); Glucose 176 mg/dL (70-105); Osmolality,Calculated 292 (280-300); Potassium 4.3 mEq/L (3.5-5.1); Sodium 137 mEq/L (136-145); eGFR For African Americans > 60 (> 60); eGFR For Non-African Americans > 60 (> 60)
[2018-12-05 07:35] LABS: Activated Partial Thrombo Time 231.7 Seconds (26.0-36.0)
[2018-12-05 07:49] LABS: Heparin anti-factor XA UFH 1.4 IU/mL (0.30-0.70)
--- NOTE | 2018-12-05 08:21 | Cardiothoracic Progress Note ---
Date of Encounter: 12/05/18 Time of Encounter: 08:20 - Assessment and plan (1) CAD (coronary artery disease) Current Visit: No Status: Acute The patient has decided on open heart surgery. We will schedule him for Sunday. At this point, he has no questions. Qualifiers: Coronary Disease-Associated Artery/Lesion type: [place] artery [place] vs. transplanted heart: [place] heart Associated angina: without angina Qualified Code(s): I25.10 - Atherosclerotic heart disease of [place] coronary artery without angina pectoris - Subjective Interval history: The patient has had no angina and no chest pain on a heparin drip. Vital Signs, Last 4 Hours Temp Pulse Resp BP 12/05/18 07:27 98.3 F 52 16 155/79 Weight 12/03/18 12/04/18 12/05/18 23:59 23:59 23:59 Weight 94.1 kg 93.5 kg Lungs are clear to percussion and auscultation. Heart is in a normal sinus rhythm. - Labs 12/05/18 05:37 12/05/18 05:37 Lab Results, Last 24 hours 12/04/18 12/04/18 12/04/18 12:35 12:35 12:35 WBC 9.0 Hgb 13.3 Hct 36.7 L Plt Count 189 INR 1.1 APTT Sodium 138 Potassium 4.6 Chloride 105 Carbon Dioxide 26 BUN 23 Creatinine 1.17 Glucose 97 Calcium 9.0 Troponin I 12/04/18 12/04/18 12/04/18 12:35 17:19 17:19 WBC 9.5 Hgb 14.1 Hct 39.5 Plt Count 172 INR 1.1 APTT Sodium Potassium Chloride Carbon Dioxide BUN Creatinine Glucose Calcium Troponin I 0.04 H* 12/04/18 12/05/18 12/05/18 21:26 05:37 05:37 WBC 6.9 Hgb 13.7 Hct 38.8 Plt Count 175 INR APTT 33.7 Sodium 137 Potassium 4.3 Chloride 103 Carbon Dioxide 23 BUN 22 Creatinine 1.12 Glucose 176 H Calcium 9.2 Troponin I 12/05/18 05:37 WBC Hgb Hct Plt Count INR APTT 231.7 H* D Sodium Potassium Chloride Carbon Dioxide BUN Creatinine Glucose Calcium Troponin I Consult Discharge Plan - Plan Referrals: Brandi Boyce MD [Primary Care Provider] -
[2018-12-05] MEDS: Lisinopril 20 MG TABLET PO SCH (08:37)
[2018-12-05] MEDS: Aspirin 81 MG TAB.CHEW PO SCH (08:38)
[2018-12-05] MEDS: Insulin LISPRO 300 UNITS/3 ML VIAL SQ SCH ×3 (08:59→20:32)
[2018-12-05] MEDS ORDERED: NON-FORMULARY MEDICATION 1 EACH EACH (Fish Oil/Dha/Epa [Fish Oil 1,200 Mg Fish Oil] 1 CAP) PO SCH (09:00)
[2018-12-05 09:13] LABS: Chol/HDL Ratio 4.2 (0-4.9)
[2018-12-05 10:36] LABS: Estimated Average Glucose 166 mg/dl
--- NOTE | 2018-12-05 10:37 | Cardiology Progress Note ---
Date of Encounter: 12/05/18 Time of Encounter: 09:40 Assessment and Plan (1) Abnormal stress test Current Visit: Yes Status: Acute Patient presented from [place] stress lab for severely abnormal stress test. Stress test showed large size, moderate to severe intensity, reversible defect in the inferior, inferiolateral, inferioseptal, and apex consistent with ischemia. Small sized moderate intensity reversible defect in the basal to mid anterolateral segment consistent with ischemia. There is TID. Exercise EKG with ischemic changes in the inferior and anterolateral leads with exercise extending into recovery.Noted to have blunted blood pressure response. Gated EF 51%. Findings suggest multivessel CAD. Patient does have history of CAD s/p prior PCI. Last stent placement in 1999. [facility] completed and showed severe [address] surgery consulted and patient is tentatively schedule for sunday. (2) Unstable angina Current Visit: Yes Status: Acute See plan above. Continue heparin gtt until surgery. Asa, statin, and bb. No recurrent chest pain. (3) CAD (coronary artery disease) Current Visit: Yes Status: Acute H/o CAD s/p 4 cardiac stents. Last stent placed 1999. CABG scheduled for sunday. Qualifiers: Coronary Disease-Associated Artery/Lesion type: [place] artery [place] vs. transplanted heart: [place] heart Associated angina: with unstable angina Qualified Code(s): I25.110 - Atherosclerotic heart disease of [place] coronary artery with unstable angina pectoris (4) Afib Current Visit: Yes Status: Chronic H/o atrial fibrillation on eliquis. Currently NSR. On eliquis (DVT on xarelto and pradaxa.) Restart eliquis after surgery once safe from surgery standpoint. He is recommended to be bridges due to multiple DVT and CVA. Qualifiers: Atrial fibrillation type: paroxysmal Qualified Code(s): I48.0 - Paroxysmal atrial fibrillation (5) Type 2 diabetes mellitus Current Visit: Yes Status: Chronic Hospitalist consulted for medical management. Qualifiers: Diabetes mellitus intermediate accountant insulin use: with detention use Diabetes mellitus complication status: with circulatory complication Diabetes mellitus complication detail: with other circulatory complications Qualified Code(s): E11.59 - Type 2 diabetes mellitus with other circulatory complications; Z79.4 - intermediate accountant (current) use of insulin Discussion w patient/family: The assessment and plan as outlined above was discussed with the patient and/or family members who expressed understanding and agreement. All questions were answered. Thank you for involving us in the care of your patient. Please call with any questions. Subjective Principal diagnosis: unstable angina, CAD Interval history: Patient resting in bed. No new complaints. Denies having chest pain overnight. Objective Vital Signs, Last 4 Hours Temp Pulse Resp BP 12/05/18 07:27 98.3 F 52 16 155/79 General: Conversant, No Apparent Distress HEENT: Atraumatic, Normocephaly, Mucus Membranes Moist Neck: No JVD, Normal carotid pulses Cardiac: Reg Rate and Rhythm, Normal S1 and S2, No Murmur Lungs: Normal Breath Sounds, No Wheeze, Rales, Rhonchi Neuro: Alert and responsive, No focal deficits noted Abdomen: Soft, Non-Tender Skin: No rashes noted on visualized skin Musculoskeletal: No Chest Wall Tenderness Extremities: No Clubbing, No Cyanosis, No Edema, Normal Pulses, Other (right radial access site without hematoma. ) Results 12/05/18 05:37 12/05/18 05:37 Lab Results 12/04/18 12/04/18 12/04/18 12:35 12:35 12:35 WBC 9.0 Hgb 13.3 Hct 36.7 L Plt Count 189 INR 1.1 APTT Sodium 138 Potassium 4.6 Chloride 105 Carbon Dioxide 26 BUN 23 Creatinine 1.17 Glucose 97 Calcium 9.0 Troponin I 12/04/18 12/04/18 12/04/18 12:35 17:19 17:19 WBC 9.5 Hgb 14.1 Hct 39.5 Plt Count 172 INR 1.1 APTT Sodium Potassium Chloride Carbon Dioxide BUN Creatinine Glucose Calcium Troponin I 0.04 H* 12/04/18 12/05/18 12/05/18 21:26 05:37 05:37 WBC 6.9 Hgb 13.7 Hct 38.8 Plt Count 175 INR APTT 33.7 Sodium 137 Potassium 4.3 Chloride 103 Carbon Dioxide 23 BUN 22 Creatinine 1.12 Glucose 176 H Calcium 9.2 Troponin I 12/05/18 05:37 WBC Hgb Hct Plt Count INR APTT 231.7 H* D Sodium Potassium Chloride Carbon Dioxide BUN Creatinine Glucose Calcium Troponin I - Imaging and Cardiology Echo: report reviewed Cardiac cath: report reviewed - EKG Interpretation EKG results cardiology: personally reviewed Consult Discharge Plan - Plan Referrals: Brandi Boyce MD [Primary Care Provider] -
--- NOTE | 2018-12-05 12:52 | Internal Med Progress Note ---
Hospitalist Progress Note - Encounter Date of Encounter: 12/05/18 Time of Encounter: 10:20 - Subjective Interval History: Patient is awake and alert. Denies any chest pain. No nausea or vomiting. Tolerating diet well. No other complaints at this time - Exam Vitals: Temp Pulse Resp BP Pulse Ox 98.3 F 52 16 155/79 98 12/05/18 07:27 12/05/18 07:27 12/05/18 07:27 12/05/18 07:27 12/04/18 18:36 Exam: General: Patient is alert, no acute distress, oriented x 3 Respiratory: Good respiratory effort. Normal breath sounds. No wheezing or crackles. Cardiovascular: Regular rate and rhythm. s1 and s2 normal No clicks, rubs, gallops, or murmurs. No pedal edema Abdomen: Abdomen is soft, nontender. Bowel sounds are present Musculoskeletal: Spontaneously moving all extremities - Assessment and Plan (1) Abnormal stress test Current Visit: Yes Status: Acute (2) CAD (coronary artery disease) Current Visit: No Status: Acute (3) Multiple cerebral infarctions Current Visit: No Status: Chronic (4) Afib Current Visit: Yes Status: Chronic (5) Type 2 diabetes mellitus Current Visit: Yes Status: Chronic DVT Prophylaxis: IV heparin - Summary of Assessment and Plan Summary of Assessment and Plan: Coronary artery disease and abnormal stress test: Patient recommended coronary artery bypass grafting as he was found to have severe three-vessel coronary artery disease. Patient needs to be off Eliquis for 5 days. As such surgery has been scheduled tentatively for Sunday. Diabetes mellitus type 2: A1c 7.4%. Blood glucose was elevated this morning but has since improved. Continue current sliding scale. History of prior CVA: Continue aspirin and statin. Atrial fibrillation: Rate controlled. Currently on IV heparin as Eliquis on hold for anticipated CABG - Time Spent with Patient Total time spent is greater than 50% in coordination of care (as documented) at patient's floor/unit and/or counseling patient: Internal Medicine: Result - Labs CBC & Chem 7: 12/05/18 05:37 12/05/18 05:37 Labs: Short CBC 12/04/18 12/04/18 12/05/18 Range/Units 12:35 17:19 05:37 WBC 9.0 9.5 6.9 (4.3-11.1) K/mcL Hgb 13.3 14.1 13.7 (12.9-16.9) g/dL Hct 36.7 L 39.5 38.8 (37.5-50.1) % Plt Count 189 172 175 (140-400) K/mcL Neutrophils # 6.7 4.7 (1.6-8.9) K/mcL BMP 12/04/18 12/05/18 12:35 05:37 Sodium 138 137 Potassium 4.6 4.3 Chloride 105 103 Carbon Dioxide 26 23 BUN 23 22 Creatinine 1.17 1.12 Glucose 97 176 H Calcium 9.0 9.2 Cardiac Enzymes 12/04/18 Range/Units 12:35 Troponin I 0.04 H* (< 0.04) ng/mL - ABG Interpretation ABG results: PT/INR, D-dimer PT 12.4 Seconds (9.4-12.1) H 12/04/18 17:19 - Impressions Impressions Chest X-Ray 12/04/18 11:46 IMPRESSION: No acute cardiopulmonary disease. D/ / 12/04/2018 12:11:20 Sravani Roy MD / madeline Interpreting Provider: Sravani Roy MD Consult Discharge Plan - Plan Referrals: Brandi Boyce MD [Primary Care Provider] - (2) CAD (coronary artery disease) Qualifiers: Coronary Disease-Associated Artery/Lesion type: [place] artery [place] vs. transplanted heart: [place] heart Associated angina: without angina Qualified Code(s): I25.10 - Atherosclerotic heart disease of [place] coronary artery without angina pectoris (4) Afib Qualifiers: Atrial fibrillation type: paroxysmal Qualified Code(s): I48.0 - Paroxysmal atrial fibrillation (5) Type 2 diabetes mellitus Qualifiers: Diabetes mellitus senior living insulin use: with superintendent terminal use Diabetes mellitus complication status: with circulatory complication Diabetes mellitus complication detail: with other circulatory complications Qualified Code(s): E11.59 - Type 2 diabetes mellitus with other circulatory complications; Z79.4 - terminal computer operator (current) use of insulin
[2018-12-05] MEDS: Heparin 25,000 UNIT/250 ML D5W 25,000 UNIT/250 ML IV.SOLN IVC SCH (19:00)
[2018-12-06] MEDS: Lisinopril 20 MG TABLET PO SCH (08:17)
[2018-12-06] MEDS: Aspirin 81 MG TAB.CHEW PO SCH (08:17)
[2018-12-06] MEDS: Insulin LISPRO 300 UNITS/3 ML VIAL SQ SCH ×4 (08:19→20:55)
--- NOTE | 2018-12-06 09:55 | Internal Med Progress Note ---
Hospitalist Progress Note - Encounter Date of Encounter: 12/06/18 Time of Encounter: 09:20 - Exam Vitals: Temp Pulse Resp BP Pulse Ox 97.6 F 62 19 151/79 95 12/06/18 07:10 12/06/18 08:16 12/06/18 05:07 12/06/18 07:10 12/06/18 07:10 Exam: General: Patient is alert, obese, no acute distress, oriented x 3 Respiratory: Good respiratory effort. Normal breath sounds. No wheezing or crackles. Cardiovascular: Regular rate and rhythm. s1 and s2 normal No clicks, rubs, gallops, or murmurs. No pedal edema Abdomen: Abdomen is soft, nontender. Bowel sounds are present Musculoskeletal: Spontaneously moving all extremities Skin: warm, dry, intact. - Assessment and Plan (1) Abnormal stress test Current Visit: Yes Status: Acute (2) CAD (coronary artery disease) Current Visit: No Status: Acute (3) Multiple cerebral infarctions Current Visit: No Status: Chronic (4) Afib Current Visit: Yes Status: Chronic (5) Type 2 diabetes mellitus Current Visit: Yes Status: Chronic DVT Prophylaxis: IV heparin - Summary of Assessment and Plan Summary of Assessment and Plan: Coronary artery disease and abnormal stress test: No chest pain reported. Continue aspirin, statin. Awaiting CABG on Sunday. Diabetes mellitus type 2: A1c 7.4%. Blood sugars are better controlled. Continue current sliding scale insulin and diabetic diet. History of prior CVA: Continue aspirin and statin. Atrial fibrillation: Rate controlled. Continue IV heparin. Resume Eliquis after CABG. Essential hypertension: Blood pressure elevated this morning. We will continue to monitor and adjust antihypertensive regimen. - Time Spent with Patient Total time spent is greater than 50% in coordination of care (as documented) at patient's floor/unit and/or counseling patient: Internal Medicine: Result - Labs CBC & Chem 7: 12/05/18 05:37 12/05/18 05:37 - ABG Interpretation ABG results: PT/INR, D-dimer PT 12.4 Seconds (9.4-12.1) H 12/04/18 17:19 Consult Discharge Plan - Plan Referrals: Brandi Boyce MD [Primary Care Provider] - (2) CAD (coronary artery disease) Qualifiers: Coronary Disease-Associated Artery/Lesion type: [place] artery [place] vs. transplanted heart: [place] heart Associated angina: without angina Qualified Code(s): I25.10 - Atherosclerotic heart disease of [place] coronary artery without angina pectoris (4) Afib Qualifiers: Atrial fibrillation type: paroxysmal Qualified Code(s): I48.0 - Paroxysmal atrial fibrillation (5) Type 2 diabetes mellitus Qualifiers: Diabetes mellitus manager long term care insulin use: with half-way use Diabetes mellitus complication status: with circulatory complication Diabetes mellitus complication detail: with other circulatory complications Qualified Code(s): E11.59 - Type 2 diabetes mellitus with other circulatory complications; Z79.4 - termite exterminator helper (current) use of insulin
--- NOTE | 2018-12-06 10:18 | Cardiothoracic Progress Note ---
Date of Encounter: 12/06/18 Time of Encounter: 10:14 - Assessment and plan (1) CAD (coronary artery disease) Current Visit: No Status: Acute The patient is a 73-year-old type II diabetic, hypertensive man with known CAD and cerebrovascular disease. His cardiac history dates back some 20-25 years ago when he underwent PCI with coronary stent placement. He had restenosis and 3 additional stents placed. He did well until the last 1-2 weeks when he began experiencing exertional, nonradiating substernal chest pain with minimal activity. He underwent an exercise stress test which revealed ischemia. Subsequent cardiac catheterization revealed severe 3 vessel CAD and an LVEF 60%. In particular, the patient has a 70% proximal left main lesion, a completely occluded mid LAD, a 70% proximal D1 lesion, a 95% proximal LCx lesion, an 80% distal LCx lesion, a 95% proximal RCA lesion, a 99% mid RCA lesion, an 80% distal RCA lesion. He has been recommended for CABG. I concur with this recommendation. The STS risk calculator reveals an operative mortality risk 1.94%, renal failure risk 1.80%, permanent stroke risk 1.45%, deep sternal wound infection risk 0.28%, and reoperation risk 1.66%. The patient understands the procedure, benefits, alternatives, and risks as outlined above. The eliquis was stopped and he is tentatively scheduled for CABG on 12/09/2018. The assessment and plan as outlined above was discussed with the patient and/or family members who expressed understanding and agreement. All questions were answered. Qualifiers: Coronary Disease-Associated Artery/Lesion type: [place] artery [place] vs. transplanted heart: [place] heart Associated angina: without angina Qualified Code(s): I25.10 - Atherosclerotic heart disease of [place] coronary artery without angina pectoris - Subjective Interval history: The patient remained hemodynamic stable overnight. He had no chest pain. Vital Signs, Last 4 Hours Temp Pulse BP Pulse Ox 12/06/18 08:16 62 12/06/18 07:10 97.6 F 58 151/79 95 Clinical Data, last 8 Hours Output, Urine Amount 200 Output, Urine Amount 200 Output, Urine Amount 300 Weight 12/04/18 12/05/18 12/06/18 23:59 23:59 23:59 Weight 94.1 kg 93.5 kg 91.7 kg - Physical Examination General: Conversant, No Apparent Distress Neck: No JVD, Normal carotid pulses Cardiac: Reg Rate and Rhythm, Normal S1 and S2, No Murmur Lungs: Normal Breath Sounds, No Wheeze, Rales, Rhonchi Neuro: Alert and responsive, No focal deficits noted Vascular: Normal capillary refill Extremities: No Clubbing, No Cyanosis, No Edema - Labs 12/05/18 05:37 12/05/18 05:37 Lab Results, Last 24 hours 12/05/18 12/05/18 12/06/18 17:33 23:39 05:31 APTT 75.1 H D 80.2 H 83.4 H Consult Discharge Plan - Plan Referrals: Brandi Boyce MD [Primary Care Provider] -
--- NOTE | 2018-12-06 11:35 | Anesthesia Evaluation PreOp ---
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 word finding issues) Other Medical History: Diabetes Type II, GERD Anesthesia History: No Prior Anesthetic Complications, Past Anesthesia (ortho, carotid, c-scope) Alcohol Use: none Drug use: none Medications and Allergies Simvastatin [Zocor] 40 mg PO HS 02/09/16 [History] Fish Oil/Dha/Epa [Fish Oil 1,200 mg Fish Oil] 1 cap PO QAM 03/03/16 [History] Apixaban [Eliquis] 5 mg PO BID 09/03/18 [History] Lisinopril [Zestril] 40 mg PO DAILY 09/03/18 [History] Insulin NPH Human Isophane [Novolin N] 15 units SQ BID 10/11/18 [History] Aspirin Enteric Coated [Aspirin EC] 81 mg PO DAILY 12/04/18 [History] Allergy/AdvReac Type Severity Reaction Status Date / Time No Known Allergies Allergy Verified 12/04/18 11:42 - Meds/Allergy Pre-op Review Medications Reviewed: Yes Allergies Reviewed: Yes Beta Blockers on Current Med List: Yes (lopressor) Anesthesia Results - Labs 12/07/18 08:43 12/08/18 06:02 - Imaging Additional studies: cath: Impressions: There is severe three vessel coronary artery disease. The left ventricle is normal and has normal contractility EF 60% echo: ndications: Unstable Angina History Hypertension Diabetes Hypercholesteremia Family History of CAD History of CAD/PTCA Myocardial Infarction 10/11/2018 a Previous Echo was performed. Measurements: BP: 136/ 73 2D Normal Values RVIDd: 4.10 cm <2.7 cm IVSd: 1.40 cm 0.6 - 1.0 cm LVIDd: 5.20 cm 3.7 - 5.6 cm LVPWd: 1.10 cm 0.6 - 1.1 cm LVIDs: 3.40 cm 1.5 - 3.6 cm AO: 2.70 cm < 4.0 cm LA: 4.40 cm 2.0 - 4.0cm %FS: 34.60 cm >25 % LVOT Diam: 2.00 cm LA volume: 79.6 Mitral Valve Pressure Time: 53.00 msec Valve Area: 4.15 cm2 Peak E: .94 m/sec Peak A: 1.23 m/sec E/A Ratio: 0.8 Peak E' Lat Jed: 7.07 cm/s Peak E' Med Jed: 4.9 cm/s E/E' Lat Ratio: 13.3 E/E' Med Ratio: 19.2 LVOT Peak Jed: 1.15 m/sec Mean Jed: .66 m/sec Peak Grad: 5.00 mmHg Mean Grad: 2.00 mmHg Tricuspid Valve TV Regurg Peak Grad: 31.00mmHg TV Regurg Peak Jed: 2.79m/sec Updated by Junior Arias DO, EYAD, PERLA DE LA GARZA on 12/06/2018 10:23:19 AM electronically signed on 12/06/2018 10:24:45 AM with status of Final Wall Motion Garcia: 1=Normal, 2=Hypokinesis, 3=Akinesis, 4=Dyskinesis, 5=Aneurysmal, 6=Hyperkinetic, X=Not Visualized (Blank)=Missing [id number]^ProVation^FT^PDF EV/EV echocardiogram Impressions: LVEF 50-55%. Normal LV chamber size and function. Mild asymmetric hypertrophy of the basal septum. Mild left ventricular diastolic dysfunction. Atypical septal motion consistent with bundle branch block. Normal right ventricular structure and function. Mild tricuspid regurgitation. No pulmonary hypertension. Left Ventricular Wall Motion: Rest Echo Findings All wall segments showed normal motion. Findings: Study Quality * Technically adequate exam. ECG Findings * Sinus rhythm with BBB. Left Ventricle * LVEF 50-55%. * Normal LV chamber size and function. * Mild asymmetric hypertrophy of the basal septum. * Mild left ventricular diastolic dysfunction. * Atypical septal motion consistent with bundle branch block. Right Ventricle * Normal right ventricular structure and function. Left Atrium * Mildly dilated left atrium. Right Atrium * Normal right atrial size. Interatrial Septum * Interatrial septum not well evaluated. Aortic Valve * Trileaflet aortic valve with normal function. * No aortic regurgitation. * No aortic stenosis. Mitral Valve * Mildly thickened mitral valve leaflets with focal areas of calcification. * Mild mitral annular calcification. * No mitral regurgitation. * No mitral stenosis. Tricuspid Valve * Normal tricuspid valve structure. * Mild tricuspid regurgitation. * No pulmonary hypertension. Pulmonic Valve * Pulmonic valve not well visualized. * No pulmonic regurgitation. Aorta * Normally sized aortic root. Pericardium * The pericardium appears normal. IVC * Normal IVC dimensions and inspiratory collapse. Pulmonary Artery * Normal visualized portions of the main pulmonary artery. stress test: Impression: Exercise ECG is positive for ischemia (2-[address] depression) in the inferior and anterolateral leads that lasted into recovery. Chest discomfort reported during exercise. The patient demonstrated a blunted response blood pressure response. Gated EF = 51%. Large sized, moderate to severe intensity, reversible perfusion defect throughout the inferior, inferoseptal, inferolateral, and apex segments consistent with ischemia. Small sized, moderate intensity, reversible defect in the basal to mid anterolateral segments consistent with ischemia. TID ratio = 1.85. Visually, there is transient ischemic dilatation. Findings suggest obstructive multi-vessel CAD. Anesthesia Exam Selected Entries 12/09/18 04:00 Temperature 97.5 F L Pulse Rate 55 Respiratory Rate 17 Blood Pressure 116/70 O2 Sat by Pulse Oximetry 99 Oxygen Delivery Method Room Air Weight: 93kg NPO (# of Hours): 8 - HEENT Pupil (Motor): EOMI Mallampati: III Teeth: Missing Oral Opening: Greater than 3 - TAX ASSOCIATE LOC: Oriented TAX ASSOCIATE Motor: Normal RUE, Normal LUE, Normal RLE, Normal LLE, Normal Face TAX ASSOCIATE Sensory: Normal: RUE, LUE, RLE, LLE, Face - Cardiac Rhythm: Regular (bradycardic) Murmur: None - Pulmonary Breath Sounds: bilateral Clear Respiratory Effort: Symmetrical Anesthesia Assess/Plan ASA Score: 4 Level of consciousness: Cooperative, Oriented Anesthetic Plan: General Monitoring Plan: Standard Monitors, A-Line, PAC, JAMARCUS Recovery Plan: ICU (agrees to GA, lines, JAMARCUS and blood)
--- NOTE | 2018-12-06 13:28 | Cardiology Progress Note ---
Date of Encounter: 12/06/18 Time of Encounter: 13:26 Assessment and Plan (1) Abnormal stress test Current Visit: Yes Status: Acute Patient presented from [place] stress lab for severely abnormal stress test. Stress test showed large size, moderate to severe intensity, reversible defect in the inferior, inferiolateral, inferioseptal, and apex consistent with ischemia. Small sized moderate intensity reversible defect in the basal to mid anterolateral segment consistent with ischemia. There is TID. Exercise EKG with ischemic changes in the inferior and anterolateral leads with exercise extending into recovery.Noted to have blunted blood pressure response. Gated EF 51%. Findings suggest multivessel CAD. Patient does have history of CAD s/p prior PCI. Last stent placement in 1999. [facility] completed and showed severe [address] surgery consulted and patient is tentatively schedule for sunday. Recommend holding lisinopril pre- operatively per guidelines. Continue asa, statin, and heparin gtt. (2) Unstable angina Current Visit: Yes Status: Acute See plan above. Continue heparin gtt until surgery. Asa, statin, and bb. No recurrent chest pain. (3) CAD (coronary artery disease) Current Visit: Yes Status: Acute H/o CAD s/p 4 cardiac stents. Last stent placed 1999. CABG scheduled for sunday for severe CAD including LMCA disease. Qualifiers: Coronary Disease-Associated Artery/Lesion type: [place] artery [place] vs. transplanted heart: [place] heart Associated angina: with unstable angina Qualified Code(s): I25.110 - Atherosclerotic heart disease of [place] coronary artery with unstable angina pectoris (4) Afib Current Visit: Yes Status: Chronic H/o atrial fibrillation on eliquis. Currently NSR. On eliquis (DVT on xarelto and pradaxa.) Restart eliquis after surgery once safe from surgery standpoint. He is recommended to be bridges due to multiple DVT and CVA. Qualifiers: Atrial fibrillation type: paroxysmal Qualified Code(s): I48.0 - Paroxysmal atrial fibrillation (5) Type 2 diabetes mellitus Current Visit: Yes Status: Chronic Hospitalist consulted for medical management. Qualifiers: Diabetes mellitus terminal carman insulin use: with terminal carman use Diabetes mellitus complication status: with circulatory complication Diabetes mellitus complication detail: with other circulatory complications Qualified Code(s): E11.59 - Type 2 diabetes mellitus with other circulatory complications; Z79.4 - terminal carman (current) use of insulin Discussion w patient/family: The assessment and plan as outlined above was discussed with the patient and/or family members who expressed understanding and agreement. All questions were answered. Thank you for involving us in the care of your patient. Please call with any questions. Subjective Principal diagnosis: unstable angina, CAD Interval history: Patient resting in bed. No new complaints. Denies having chest pain overnight. Walking around room with no difficulty. Objective Vital Signs, Last 4 Hours Temp Pulse BP 12/06/18 11:33 97.8 F 52 132/64 General: Conversant, No Apparent Distress HEENT: Atraumatic, Normocephaly, Mucus Membranes Moist Neck: No JVD, Normal carotid pulses Cardiac: Reg Rate and Rhythm, Normal S1 and S2, No Murmur Lungs: Normal Breath Sounds, No Wheeze, Rales, Rhonchi Neuro: Alert and responsive, No focal deficits noted Abdomen: Soft, Non-Tender Skin: No rashes noted on visualized skin Musculoskeletal: No Chest Wall Tenderness Extremities: No Clubbing, No Cyanosis, No Edema, Normal Pulses Results 12/05/18 05:37 12/05/18 05:37 Lab Results 12/05/18 12/05/18 12/06/18 17:33 23:39 05:31 APTT 75.1 H D 80.2 H 83.4 H - Imaging and Cardiology Echo: report reviewed - EKG Interpretation EKG results cardiology: personally reviewed Consult Discharge Plan - Plan Referrals: Brandi Boyce MD [Primary Care Provider] -
[2018-12-06 15:56] LABS: Bilirubin,Urine Negative (Negative); Blood,Urine Negative (Negative); Clarity,Urine Clear (Clear); Color,Urine Yellow (Yellow); Glucose,Urine (UA) Normal (Normal); Ketones,Urine Negative (Negative); Leukocyte Esterase,Urine Negative (Negative); Nitrite,Urine Negative (Negative); Protein,Urine Negative (Neg-Trace); Specific Gravity,Urine 1.012 (1.010-1.025); Urobilinogen,Urine Normal (Normal)
[2018-12-06] MEDS: Heparin 25,000 UNIT/250 ML D5W 25,000 UNIT/250 ML IV.SOLN IVC SCH (17:19)
[2018-12-07] MEDS: Aspirin 81 MG TAB.CHEW PO SCH (08:23)
[2018-12-07] MEDS: Insulin LISPRO 300 UNITS/3 ML VIAL SQ SCH ×4 (08:23→20:01)
--- NOTE | 2018-12-07 09:03 | Cardiothoracic Progress Note ---
Date of Encounter: 12/07/18 Time of Encounter: 09:01 - Assessment and plan (1) Unstable angina Current Visit: Yes Status: Acute The assessment and plan as outlined above was discussed with the patient and/or family members who expressed understanding and agreement. All questions were answered. plans for cabg on sunday - Subjective Interval history: no f/c/s. no n/v. no cp or diaphoresis. Vital Signs, Last 4 Hours Temp Pulse Resp BP Pulse Ox 12/07/18 07:16 97.9 F 55 16 123/72 95 Weight 12/05/18 12/06/18 12/07/18 23:59 23:59 23:59 Weight 93.5 kg 91.7 kg - Physical Examination General: Conversant, No Apparent Distress, Well developed, Well nourished Cardiac: Reg Rate and Rhythm, Normal S1 and S2 Lungs: Normal Breath Sounds Neuro: Alert and responsive, No focal deficits noted, Cranial nerves intact, Motor nerves intact - Labs 12/05/18 05:37 12/05/18 05:37 Lab Results, Last 24 hours 12/07/18 05:54 APTT 77.9 H Consult Discharge Plan - Plan Referrals: Brandi Boyce MD [Primary Care Provider] -
[2018-12-07 09:09] LABS: Basophils # 0.1 K/mcL (0.0-0.2); Basophils % 0.8 %; Eosinophils # 0.3 K/mcL (0.0-0.6); Eosinophils % 3.8 %; Hematocrit 41.1 % (37.5-50.1); Hemoglobin 14.5 g/dL (12.9-16.9); Immature Granulocytes % 0.3 % (0-4); Lymphocytes # 1.6 K/mcL (0.6-4.6); Lymphocytes % 19.9 %; Mean Corpuscular HGB Conc 35.3 g/dL (31.6-35.5); Mean Corpuscular Volume 87.8 fL (83.0-100.0); Mean Platelet Volume 9.4 fL (9.4-12.4); Monocytes # 0.5 K/mcL (0.0-1.3); Monocytes % 6.6 %; Neutrophils # 5.4 K/mcL (1.6-8.9); Platelet Count 201 K/mcL (140-400); Red Blood Count 4.68 M/mcL (4.19-5.50); Red Cell Distribution Width 13.4 % (11.5-14.5); Segmented Neutrophils % 68.6 %; White Blood Count 7.8 K/mcL (4.3-11.1)
[2018-12-07 09:26] LABS: Calcium 9.4 mg/dL (8.6-10.3); Potassium 4.7 mEq/L (3.5-5.1)
--- NOTE | 2018-12-07 10:17 | Cardiology Progress Note ---
Date of Encounter: 12/07/18 Time of Encounter: 10:16 Assessment and Plan (1) Abnormal stress test Current Visit: Yes Status: Acute Patient presented from [place] stress lab for severely abnormal stress test. Stress test showed large size, moderate to severe intensity, reversible defect in the inferior, inferiolateral, inferioseptal, and apex consistent with ischemia. Small sized moderate intensity reversible defect in the basal to mid anterolateral segment consistent with ischemia. There is TID. Exercise EKG with ischemic changes in the inferior and anterolateral leads with exercise extending into recovery.Noted to have blunted blood pressure response. Gated EF 51%. Findings suggest multivessel CAD. Patient does have history of CAD s/p prior PCI. Last stent placement in 1999. [facility] completed and showed severe [address] surgery consulted and patient is tentatively schedule for sunday. Recommend holding lisinopril pre- operatively per guidelines. Held 12/06/18. Continue asa, statin, and heparin gtt. (2) Unstable angina Current Visit: Yes Status: Acute See plan above. Continue heparin gtt until surgery. Asa, statin, and bb. No recurrent chest pain. (3) CAD (coronary artery disease) Current Visit: Yes Status: Acute H/o CAD s/p 4 cardiac stents. Last stent placed 1999. CABG scheduled for sunday for severe CAD including LMCA disease. Qualifiers: Coronary Disease-Associated Artery/Lesion type: [place] artery [place] vs. transplanted heart: [place] heart Associated angina: with unstable angina Qualified Code(s): I25.110 - Atherosclerotic heart disease of [place] coronary artery with unstable angina pectoris (4) Afib Current Visit: Yes Status: Chronic H/o atrial fibrillation on eliquis. Currently NSR. On eliquis (DVT on xarelto and pradaxa.) Restart eliquis after surgery once safe from surgery standpoint. He is recommended to be bridges due to multiple DVT and CVA. Qualifiers: Atrial fibrillation type: paroxysmal Qualified Code(s): I48.0 - Paroxysmal atrial fibrillation (5) Type 2 diabetes mellitus Current Visit: Yes Status: Chronic Hospitalist consulted for medical management. 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 All questions were answered. Thank you for involving us in the care of your patient. Please call with any questions. Subjective Principal diagnosis: unstable angina, CAD Interval history: Patient resting in bed. No new complaints. Denies having chest pain overnight. Objective Vital Signs, Last 4 Hours Temp Pulse Resp BP Pulse Ox 12/07/18 07:16 97.9 F 55 16 123/72 95 Results 12/07/18 08:43 12/07/18 08:43 Lab Results 12/07/18 12/07/18 12/07/18 05:54 08:43 08:43 WBC 7.8 Hgb 14.5 Hct 41.1 Plt Count 201 APTT 77.9 H Sodium 136 Potassium 4.7 Chloride 103 Carbon Dioxide 25 BUN 32 H Creatinine 1.47 H Glucose 189 H Calcium 9.4 Consult Discharge Plan - Plan Referrals: Brandi Boyce MD [Primary Care Provider] -
[2018-12-07] MEDS ORDERED: 0.9 % Sodium Chloride 1,000 ML IVC SCH (10:30)
--- NOTE | 2018-12-07 11:04 | Internal Med Progress Note ---
Hospitalist Progress Note - Encounter Date of Encounter: 12/07/18 Time of Encounter: 11:02 - Subjective Interval History: Patient is awake and alert. Denies any new complaints at this time. Tolerating diet well. No chest pain or palpitations. - Exam Vitals: Temp Pulse Resp BP Pulse Ox 98.5 F 54 16 119/67 97 12/07/18 10:50 12/07/18 10:50 12/07/18 10:50 12/07/18 10:50 12/07/18 10:50 Exam: General: Patient is alert, obese, no acute distress, oriented x 3 Respiratory: Good respiratory effort. Normal breath sounds. No wheezing or crackles. Cardiovascular: Regular rate and rhythm. s1 and s2 normal No clicks, rubs, gallops, or murmurs. No pedal edema Abdomen: Abdomen is soft, nontender. Bowel sounds are present Musculoskeletal: Spontaneously moving all extremities Skin: warm, dry, intact. - Assessment and Plan (1) Abnormal stress test Current Visit: Yes Status: Acute (2) CAD (coronary artery disease) Current Visit: No Status: Acute (3) Multiple cerebral infarctions Current Visit: No Status: Chronic (4) Afib Current Visit: Yes Status: Chronic (5) Type 2 diabetes mellitus Current Visit: Yes Status: Chronic (6) TA (acute kidney injury) Current Visit: Yes Status: Acute DVT Prophylaxis: IV heparin - Summary of Assessment and Plan Summary of Assessment and Plan: Acute kidney injury: Creatinine bumped up to 1.47 today. Lisinopril has been held. Cardiology has ordered IV fluids. Will monitor renal function. Urinalysis done yesterday was fairly negative. Coronary artery disease and abnormal stress test: No chest pain reported. Continue aspirin, statin. Awaiting CABG on Sunday. Diabetes mellitus type 2: A1c 7.4%. Blood sugars remained well controlled. Continue current insulin regimen. History of prior CVA: Continue aspirin and statin. Atrial fibrillation: Rate controlled. Continue IV heparin. Resume Eliquis after CABG. Essential hypertension: Blood pressure better controlled today. Continue current medications. Moderate risk for complications - Time Spent with Patient Total time spent is greater than 50% in coordination of care (as documented) at patient's floor/unit and/or counseling patient: Internal Medicine: Result - Labs CBC & Chem 7: 12/07/18 08:43 12/07/18 08:43 Labs: Short CBC 12/07/18 Range/Units 08:43 WBC 7.8 (4.3-11.1) K/mcL Hgb 14.5 (12.9-16.9) g/dL Hct 41.1 (37.5-50.1) % Plt Count 201 (140-400) K/mcL Neutrophils # 5.4 (1.6-8.9) K/mcL BMP 12/07/18 08:43 Sodium 136 Potassium 4.7 Chloride 103 Carbon Dioxide 25 BUN 32 H Creatinine 1.47 H Glucose 189 H Calcium 9.4 Urine 12/06/18 Range/Units 15:30 Urine Color Yellow (Yellow) Urine Clarity Clear (Clear) Urine pH 6.0 (5.0-8.0) pH Units Ur Specific [place] 1.012 (1.010-1.025) Urine Protein Negative (Neg-Trace) mg/dL Urine Glucose (UA) Normal (Normal) mg/dL - ABG Interpretation ABG results: PT/INR, D-dimer PT 12.4 Seconds (9.4-12.1) H 12/04/18 17:19 Consult Discharge Plan - Plan Referrals: Brandi Boyce MD [Primary Care Provider] - (2) CAD (coronary artery disease) Qualifiers: Coronary Disease-Associated Artery/Lesion type: [place] artery [place] vs. 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
[2018-12-07] MEDS: Heparin 25,000 UNIT/250 ML D5W 25,000 UNIT/250 ML IV.SOLN IVC SCH (15:20)
[2018-12-08 08:24] LABS: Calcium 9.5 mg/dL (8.6-10.3); Potassium 4.3 mEq/L (3.5-5.1)
[2018-12-08] MEDS: Chlorhexidine Rinse 15 ML MOUTHWASH MM SCH ×2 (08:31→21:34)
[2018-12-08] MEDS: Insulin LISPRO 300 UNITS/3 ML VIAL SQ SCH ×4 (08:32→21:31)
[2018-12-08] MEDS: Aspirin 81 MG TAB.CHEW PO SCH (08:32)
--- NOTE | 2018-12-08 10:23 | Cardiothoracic Progress Note ---
Date of Encounter: 12/08/18 Time of Encounter: 10:22 - Assessment and plan (1) Unstable angina Current Visit: Yes Status: Acute The assessment and plan as outlined above was discussed with the patient and/or family members who expressed understanding and agreement. All questions were answered. plans for cabg on sunday . orders reviewed - Subjective Interval history: no f/c/s. no n/v. no cp or diaphoresis. Vital Signs, Last 4 Hours Temp Pulse Resp BP Pulse Ox 12/08/18 07:35 98.0 F 55 18 145/74 96 Weight 12/06/18 12/07/18 12/08/18 23:59 23:59 23:59 Weight 91.7 kg 92.7 kg - Physical Examination General: Conversant, No Apparent Distress, Well developed, Well nourished HEENT: Atraumatic, Normocephaly Cardiac: Reg Rate and Rhythm Neuro: Alert and responsive, No focal deficits noted, Cranial nerves intact, Motor nerves intact Abdomen: Soft Extremities: No Edema - Labs 12/07/18 08:43 12/08/18 06:02 Lab Results, Last 24 hours 12/08/18 12/08/18 06:02 06:02 APTT 107.5 H Sodium 138 Potassium 4.3 Chloride 105 Carbon Dioxide 24 BUN 29 H Creatinine 1.40 H Glucose 151 H Calcium 9.5 Consult Discharge Plan - Plan Referrals: Brandi Boyce MD [Primary Care Provider] -
--- NOTE | 2018-12-08 12:24 | Cardiology Progress Note ---
Date of Encounter: 12/08/18 Time of Encounter: 12:22 Assessment and Plan (1) Abnormal stress test Current Visit: Yes Status: Acute Patient presented from [place] stress lab for severely abnormal stress test. Stress test showed large size, moderate to severe intensity, reversible defect in the inferior, inferiolateral, inferioseptal, and apex consistent with ischemia. Small sized moderate intensity reversible defect in the basal to mid anterolateral segment consistent with ischemia. There is TID. Exercise EKG with ischemic changes in the inferior and anterolateral leads with exercise extending into recovery.Noted to have blunted blood pressure response. Gated EF 51%. Patient does have history of CAD s/p prior PCI. Last stent placement in 1999. [facility] completed and showed severe [address] surgery consulted and patient is tentatively schedule for sunday. Recommend holding lisinopril pre- operatively per guidelines. Held 12/06/18. Continue asa, statin, and heparin gtt. Monitor kidney function. (2) Unstable angina Current Visit: Yes Status: Acute See plan above. Continue heparin gtt until surgery. Asa, statin, and bb. No recurrent chest pain. (3) CAD (coronary artery disease) Current Visit: Yes Status: Acute H/o CAD s/p 4 cardiac stents. Last stent placed 1999. CABG scheduled for sunday for severe CAD including LMCA disease. Qualifiers: Coronary Disease-Associated Artery/Lesion type: [place] artery [place] vs. transplanted heart: [place] heart Associated angina: with unstable angina Qualified Code(s): I25.110 - Atherosclerotic heart disease of [place] coronary artery with unstable angina pectoris (4) Afib Current Visit: Yes Status: Chronic H/o atrial fibrillation on eliquis. Currently NSR. On eliquis (DVT on xarelto and pradaxa.) Restart eliquis after surgery once safe from surgery standpoint. He is recommended to be bridges due to multiple DVT and CVA. Qualifiers: Atrial fibrillation type: paroxysmal Qualified Code(s): I48.0 - Paroxysmal atrial fibrillation (5) Type 2 diabetes mellitus Current Visit: Yes Status: Chronic Hospitalist consulted for medical management. Qualifiers: Diabetes mellitus intermediate frame tender insulin use: with intermediate frame tender use Diabetes mellitus complication status: with circulatory complication Diabetes mellitus complication detail: with other circulatory complications Qualified Code(s): E11.59 - Type 2 diabetes mellitus with other circulatory complications; Z79.4 - care home (current) use of insulin (6) TA (acute kidney injury) Current Visit: Yes Status: Acute Mild TA noted. Lisinopril held 12/06. IV fluid was given with some improvement. Avoid nephrotoxins. Discussion w patient/family: The assessment and plan as outlined above was discussed with the patient and/or family members who expressed understanding and agreement. All questions were answered. Thank you for involving us in the care of your patient. Please call with any questions. Subjective Principal diagnosis: unstable angina, CAD Interval history: Patient resting in bed. No new complaints. Denies having chest pain overnight. Objective Vital Signs, Last 4 Hours Temp Pulse Resp BP Pulse Ox 12/08/18 11:11 98.0 F 52 16 154/89 97 General: Conversant, No Apparent Distress HEENT: Atraumatic, Normocephaly, Mucus Membranes Moist Neck: No JVD, Normal carotid pulses Cardiac: Reg Rate and Rhythm, Normal S1 and S2, No Murmur Lungs: Normal Breath Sounds, No Wheeze, Rales, Rhonchi Neuro: Alert and responsive, No focal deficits noted Abdomen: Soft, Non-Tender Skin: No rashes noted on visualized skin Musculoskeletal: No Chest Wall Tenderness Extremities: No Clubbing, No Cyanosis, No Edema, Normal Pulses Results 12/07/18 08:43 12/08/18 06:02 Lab Results 12/08/18 12/08/18 06:02 06:02 APTT 107.5 H Sodium 138 Potassium 4.3 Chloride 105 Carbon Dioxide 24 BUN 29 H Creatinine 1.40 H Glucose 151 H Calcium 9.5 - EKG Interpretation EKG results cardiology: personally reviewed Consult Discharge Plan - Plan Referrals: Brandi Boyce MD [Primary Care Provider] -
--- NOTE | 2018-12-08 12:55 | Internal Med Progress Note ---
Hospitalist Progress Note - Encounter Date of Encounter: 12/08/18 Time of Encounter: 12:55 - Subjective Interval History: Evaluated patient earlier today. Doing well overall. Denies any new complaints. No chest pain or palpitations. No nausea or vomiting. - Exam Vitals: Temp Pulse Resp BP Pulse Ox 98.0 F 52 16 154/89 97 12/08/18 11:11 12/08/18 11:11 12/08/18 11:11 12/08/18 11:11 12/08/18 11:11 Exam: General: Patient is alert, obese, no acute distress, oriented x 3 Respiratory: Good respiratory effort. Normal breath sounds. No wheezing or crackles. Cardiovascular: Regular rate and rhythm. s1 and s2 normal No clicks, rubs, gallops, or murmurs. No pedal edema Abdomen: Abdomen is soft, nontender. Bowel sounds are present Musculoskeletal: Spontaneously moving all extremities Skin: warm, dry, intact. - Assessment and Plan (1) Abnormal stress test Current Visit: Yes Status: Acute (2) CAD (coronary artery disease) Current Visit: No Status: Acute (3) Multiple cerebral infarctions Current Visit: No Status: Chronic (4) Afib Current Visit: Yes Status: Chronic (5) Type 2 diabetes mellitus Current Visit: Yes Status: Chronic (6) TA (acute kidney injury) Current Visit: Yes Status: Acute DVT Prophylaxis: IV heparin - Summary of Assessment and Plan Summary of Assessment and Plan: Acute kidney injury: Creatinine improved to 1.4. Reviewing his labs from before, patient does appear to have underlying chronic kidney disease stage II. Will need to closely monitor his renal function postoperatively and avoid episodes of hypotension intraoperatively. If kidney injury worsens postoperatively, will need to consult nephrology. Coronary artery disease and abnormal stress test: No chest pain reported. Continue aspirin, statin. Awaiting CABG on Sunday. Keep nothing by mouth after midnight. Diabetes mellitus type 2: A1c 7.4%. Well controlled. History of prior CVA: Continue aspirin and statin. Atrial fibrillation: Rate controlled. Continue IV heparin. Resume Eliquis after CABG. Essential hypertension: Continue metoprolol. Moderate risk for complications - Time Spent with Patient Total time spent is greater than 50% in coordination of care (as documented) at patient's floor/unit and/or counseling patient: Internal Medicine: Result - Labs CBC & Chem 7: 12/07/18 08:43 12/08/18 06:02 Labs: BMP 12/08/18 06:02 Sodium 138 Potassium 4.3 Chloride 105 Carbon Dioxide 24 BUN 29 H Creatinine 1.40 H Glucose 151 H Calcium 9.5 - ABG Interpretation ABG results: PT/INR, D-dimer PT 12.4 Seconds (9.4-12.1) H 12/04/18 17:19 Consult Discharge Plan - Plan Referrals: Brandi Boyce MD [Primary Care Provider] - (2) CAD (coronary artery disease) Qualifiers: Coronary Disease-Associated Artery/Lesion type: [place] artery [place] vs. transplanted heart: [place] heart Associated angina: without angina Qualified Code(s): I25.10 - Atherosclerotic heart disease of [place] coronary artery without angina pectoris (4) Afib Qualifiers: Atrial fibrillation type: paroxysmal Qualified Code(s): I48.0 - Paroxysmal atrial fibrillation (5) Type 2 diabetes mellitus Qualifiers: Diabetes mellitus intermediate insulin use: with intermediate use Diabetes mellitus complication status: with circulatory complication Diabetes mellitus complication detail: with other circulatory complications Qualified Code(s): E11.59 - Type 2 diabetes mellitus with other circulatory complications; 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
[2018-12-08] MEDS: Heparin 25,000 UNIT/250 ML D5W 25,000 UNIT/250 ML IV.SOLN IVC SCH (14:21)
[2018-12-09 03:30] LABS: Heparin anti-factor XA UFH 0.37 IU/mL (0.30-0.70)
[2018-12-09 03:39] LABS: Activated Partial Thrombo Time 61.5 Seconds (26.0-36.0)
[2018-12-09] MEDS ORDERED: Insulin Human Regular 100 UNIT in 0.9 % Sodium Chloride 100 ML IV PRN (06:00)
[2018-12-09] MEDS ORDERED: Dextrose 50 % in Water (Vial) 30 ML, Sodium Bicarbonate 20 MEQ, Potassium Chloride 15 M... TH ONE (06:00)
[2018-12-09] MEDS ORDERED: Dextrose 50 % in Water (Vial) 30 ML, Sodium Bicarbonate 20 MEQ, Lidocaine 1% 5 ML, Insu... TH ONE ×3 (06:00)
[2018-12-09] MEDS ORDERED: Norepinephrine 4 MG in 0.9 % Sodium Chloride 250 ML IVC PRN (06:00)
[2018-12-09] MEDS ORDERED: Aspirin 81 MG TAB.CHEW PO ONE (06:00)
[2018-12-09] MEDS ORDERED: Heparin 15,000 UNIT in 0.9 % Sodium Chloride 500 ML IV ONE (06:00)
[2018-12-09] MEDS: Aspirin 81 MG TAB.CHEW PO SCH (06:13)
[2018-12-09] MEDS ORDERED: Nitroglycerin 25 MG/250 ML INFUS..BTL IVC ONE (06:42)
[2018-12-09] MEDS ORDERED: NiCARdipine 2.5 MG/10 ML Syringe IVPB ONE (06:43)
[2018-12-09] MEDS ORDERED: *HR* FentaNYL (PF) 1,000 MCG/20 ML VIAL ONE (06:52)
[2018-12-09] MEDS ORDERED: Famotidine 20 MG/2 ML VIAL ONE (06:52)
[2018-12-09] MEDS ORDERED: *HR* Etomidate 20 MG/10 ML AMPUL IVP ONE (06:52)
[2018-12-09] MEDS ORDERED: *HR* Rocuronium Bromide 50 MG/5 ML VIAL ONE ×2 (06:52→10:50)
[2018-12-09] MEDS ORDERED: *HR* PHENYLEPHRINE 1,000 MCG/10 ML SYRINGE IVP ONE ×2 (06:52→09:29)
[2018-12-09] MEDS ORDERED: *HR* Midazolam HCl 5 MG/5 ML VIAL IVP ONE (06:52)
[2018-12-09] MEDS ORDERED: Calcium Gluconate 1,000 MG/10 ML VIAL ONE (06:53)
[2018-12-09] MEDS ORDERED: Tranexamic Acid 1,000 MG/10 ML VIAL ONE ×2 (06:53→09:02)
[2018-12-09] MEDS ORDERED: Protamine Sulfate 250 MG/25 ML VIAL IVP ONE (06:53)
--- NOTE | 2018-12-09 07:54 | Internal Med Progress Note ---
<Ilia Mosley - Last Filed: 12/09/18 10:22> Hospitalist Progress Note - Encounter Date of Encounter: 12/09/18 Time of Encounter: 10:22 - Exam Vitals: Temp Pulse Resp BP Pulse Ox 97.5 F L 55 17 116/70 99 12/09/18 04:00 12/09/18 04:00 12/09/18 04:00 12/09/18 04:00 12/09/18 04:00 Exam: . - Assessment and Plan (1) Abnormal stress test Current Visit: Yes Status: Acute (2) CAD (coronary artery disease) Current Visit: No Status: Acute (3) Multiple cerebral infarctions Current Visit: No Status: Chronic (4) Afib Current Visit: Yes Status: Chronic (5) Type 2 diabetes mellitus Current Visit: Yes Status: Chronic (6) TA (acute kidney injury) Current Visit: Yes Status: Acute - Summary of Assessment and Plan Summary of Assessment and Plan: Patient to undergo coronary artery bypass grafting today. Care will be taken over by cardiothoracic surgery. Please call with any questions. - Time Spent with Patient Total time spent is greater than 50% in coordination of care (as documented) at patient's floor/unit and/or counseling patient: Internal Medicine: Result - Labs CBC & Chem 7: 12/07/18 08:43 12/08/18 06:02 - ABG Interpretation ABG results: ABG ABG pH 7.43 pH Units (7.32-7.45) 12/09/18 09:59 ABG pCO2 35 mmHg (35-45) 12/09/18 09:59 ABG pO2 629 mmHg (85-104) H D 12/09/18 09:59 ABG O2 Saturation 100 % (95-98) H 12/09/18 09:59 PT/INR, D-dimer PT 12.4 Seconds (9.4-12.1) H 12/04/18 17:19 Consult Discharge Plan - Plan Referrals: Brandi Boyce MD [Primary Care Provider] - <Denys Richardson I - Last Filed: 12/09/18 17:36> Hospitalist Progress Note - Encounter Date of Encounter: 12/09/18 - Exam Vitals: Temp Pulse Resp BP Pulse Ox 97.5 F L 55 17 116/70 99 12/09/18 04:00 12/09/18 04:00 12/09/18 04:00 12/09/18 04:00 12/09/18 04:00 - Time Spent with Patient Total time spent is greater than 50% in coordination of care (as documented) at patient's floor/unit and/or counseling patient: Internal Medicine: Result - Labs CBC & Chem 7: 12/09/18 12:27 12/09/18 12:27 Labs: BMP 12/08/18 06:02 Sodium 138 Potassium 4.3 Chloride 105 Carbon Dioxide 24 BUN 29 H Creatinine 1.40 H Glucose 151 H Calcium 9.5 - ABG Interpretation ABG results: PT/INR, D-dimer PT 12.4 Seconds (9.4-12.1) H 12/04/18 17:19 <Ilia Mosley - Last Filed: 12/09/18 10:22> (2) CAD (coronary artery disease) Qualifiers: Coronary Disease-Associated Artery/Lesion type: [place] artery [place] vs. transplanted heart: [place] heart Associated angina: without angina Qualified Code(s): I25.10 - Atherosclerotic heart disease of [place] coronary artery without angina pectoris (4) Afib Qualifiers: Atrial fibrillation type: paroxysmal Qualified Code(s): I48.0 - Paroxysmal atrial fibrillation (5) Type 2 diabetes mellitus Qualifiers: Diabetes mellitus turf grower insulin use: with snf use Diabetes mellitus complication status: with circulatory complication Diabetes mellitus complication detail: with other circulatory complications Qualified Code(s): E11.59 - Type 2 diabetes mellitus with other circulatory complications; Z79.4 - head of insight (current) use of insulin
[2018-12-09 08:06] LABS: ABG Base Excess -4 mEq/L (-2 to 3); ABG Chloride 106 mEq/L (98-107); ABG Glucose 139 mg/dL (60-95); ABG HCO3 24 mEq/L (21-27); ABG Ionized Calcium 1.14 mmol/L (1.15-1.35); ABG Oxygen Saturation 98 % (95-98); ABG PCO2 50 mmHg (35-45); ABG PH 7.28 pH Units (7.32-7.45); ABG PO2 123 mmHg (85-104); ABG TCO2 25 mEq/L (20-26)
[2018-12-09] MEDS ORDERED: Esmolol 100 MG/10 ML VIAL IVP ONE (08:07)
[2018-12-09] MEDS ORDERED: CeFAZolin Syr 2,000MG/20 ML 2,000 MG/20 ML SYRINGE IVPB ONE (08:23)
[2018-12-09] MEDS ORDERED: niCARdipine 20 MG/200 ML MLS IVC ONE (08:43)
[2018-12-09] MEDS ORDERED: Chlorhexidine Rinse 15 ML MOUTHWASH MM SCH (09:00)
--- NOTE | 2018-12-09 09:00 | Anesthesia Procedures ---
Date of Encounter: 12/09/18 Time of Encounter: 07:55 Procedures: Anesthesia - Arterial Line Consent obtained: written consent Time out performed: Yes Sedation: Versed (mg): 2 Sedation: Fentanyl (mcg): 100 Supplemental Oxygen via Nasal Cannula (L/min): 2 Local Anesthetic: Lidocaine 1% Amount of Anesthetic used (mls): 1 Size (Gauge): 20 Length (inches): 5 Technique Used: sterile prep, guide wire technique, direct puncture technique Post-Procedure: line taped into place, dry sterile dressing placed Patient tolerated procedure: well, no complications Complications: none Site: Radial L - Central Line Placement Right IJ Consent obtained: written consent Time out performed: Yes Patient placed on monitor/pulse ox: Yes prep: mask, gown, gloves Central line prep: Chlorhexidine scrub Ultrasound used for placement: Yes Technique: Seldinger Lumen Inserted: Introducer Size / Length: 9 Fr / 10 cm Post procedure: sutured in place, good blood return, all ports aspirated, flushed, capped, sterile dressing applied Patient tolerated procedure: well, no complications Comments: introducer placed easily, swan placed without arrythmia, wedge approx 57cm
[2018-12-09 10:21] LABS: ABG Base Excess -1 mEq/L (-2 to 3); ABG Chloride 102 mEq/L (98-107); ABG Glucose 228 mg/dL (60-95); ABG HCO3 23 mEq/L (21-27); ABG Ionized Calcium 1.04 mmol/L (1.15-1.35); ABG Oxygen Saturation 100 % (95-98); ABG PCO2 35 mmHg (35-45); ABG PH 7.43 pH Units (7.32-7.45); ABG PO2 629 mmHg (85-104); ABG TCO2 24 mEq/L (20-26)
[2018-12-09 10:21] LABS: ABG Base Excess -5 mEq/L (-2 to 3); ABG Chloride 107 mEq/L (98-107); ABG Glucose 181 mg/dL (60-95); ABG HCO3 20 mEq/L (21-27); ABG Ionized Calcium 1.09 mmol/L (1.15-1.35); ABG Oxygen Saturation 99 % (95-98); ABG PCO2 36 mmHg (35-45); ABG PH 7.36 pH Units (7.32-7.45); ABG PO2 136 mmHg (85-104); ABG TCO2 21 mEq/L (20-26)
[2018-12-09 11:16] LABS: ABG Base Excess -1 mEq/L (-2 to 3); ABG Chloride 102 mEq/L (98-107); ABG Glucose 247 mg/dL (60-95); ABG HCO3 23 mEq/L (21-27); ABG Ionized Calcium 1.03 mmol/L (1.15-1.35); ABG Oxygen Saturation 100 % (95-98); ABG PCO2 36 mmHg (35-45); ABG PH 7.42 pH Units (7.32-7.45); ABG PO2 609 mmHg (85-104); ABG TCO2 24 mEq/L (20-26)
--- NOTE | 2018-12-09 11:54 | Operative Note ---
Date of procedure: 12/09/18 Pre-op diagnosis: CAD Post-op diagnosis: same Procedure: 1. CABG3 (SEGOVIA to D1, SVG to OM1, SVG to PDA). 2. Endoscopic vein harvesting, greater saphenous vein from right lower extremity. 3. Endoscopic vein harvesting, greater saphenous vein from left lower extremity. Implants: None. Complications: None. Anesthesia: GETA Surgeon: Dru Osei Was there an melter assistant present: Yes Product Safety Specialist: Jaspal Omalley Estimated blood loss (cc): 500 Specimen: None. Condition: stable Disposition: ICU Procedure in Detail: INDICATIONS FOR OPERATION: The patient is a 73-year-old type II diabetic, hypertensive man with known CAD and cerebrovascular disease. His cardiac history dates back some 20-25 years ago when he underwent PCI with coronary stent placement. He had restenosis and 3 additional stents placed. He did well until the last 1-2 weeks prior to admission when he began experiencing exertional, nonradiating substernal chest pain with minimal activity. He underwent an exercise stress test which revealed a significant ischemia. Subsequent cardiac catheterization revealed severe 3 vessel CAD and an LVEF 60%. In particular, the patient has a 70% proximal left main lesion, a completely occluded mid LAD, a 70% proximal D1 lesion, a 95% proximal LCx lesion, an 80% distal LCx lesion, a 95% proximal RCA lesion, a 99% mid RCA lesion, an 80% distal RCA lesion. He has been recommended for CABG. FINDINGS AT OPERATION: The aorta was of normal caliber and slightly thickened without calcification. The coronary arteries measure proximal 1.5-2 mm in diameter and were heavily calcified and had mild to moderate distal disease. The LAD was a small vessel with moderate distal disease and was non-bypassable. The greater saphenous vein was harvested endoscopically from the right lower extremity from the mid calf to the groin and had one usable segment of conduit. The greater saphenous vein was then harvested endoscopically from the left lower extremity from the knee to the groin and was of good quality. The total bypass time was 90 minutes, cross- clamp time 55 minutes, intentional hypothermia of 34 degrees centigrade. DESCRIPTION OF OPERATION: After obtaining informed operative consent from the patient, he was taken to the operating room where a satisfactory general endotracheal anesthetic was induced. Appropriate monitor lines placed, the patient's chest, abdomen, and lower extremities were prepped and draped in a sterile fashion. The greater saphenous vein was initially harvested endoscopically from the right lower extremity from the mid calf to the groin. The vein was removed, distended, however, only one usable segment of vein was present in this harvested segment. The greater saphenous vein was then harvested endoscopically from the left lower extremity from the knee to the groin. This vein was removed, distended, and found to be of good quality. The simultaneous tissue and skin edges were reapproximated running Vicryl sutures. Simultaneously, a standard medium sternotomy incision was made and the sternum divided. The SEGOVIA was taken down from its bed and side branches divided between hemoclips. The sternum was and the pericardium opened and reflected laterally. The patient was prepared for cannulation by placing pursestring sutures the distal ascending aorta, mid-ascending aorta, and right atrial appendage. The patient was heparinized and when the ACT was greater than 200 seconds, the distal ascending aorta was cannulated all by placement of a dual stage venous cannula through the right atrial appendage and into the inferior vena cava. A stab-in antegrade metabolic and was placed in the mid-ascending aorta. The patient was placed on bypass attempts allowed to drift to 34 degrees centigrade. The distal targets were identified and the aorta was crossclamped. The patient received 700 mL of cold antegrade crystalloid cardioplegia through the aortic root and the patient's heart obtained rapid diastolic arrest. The PDA was opened with a [place] blade and the vein was anastomosed in an end-to-side fashion using running 7-0 Prolene suture. The anastomosis was found to be hemostatic and the patient received a notice of cold antegrade crystalloid cardioplegia through the aortic root. The OM1 branch was opened be blade and the vein was anastomosed in end-to-side fashion using running 7-0 Prolene suture. The anastomosis found to be hemostatic. At this point the LAD was again identified with the heart arrested and found to be a small (1 mm diameter vessel) vessel with diffuse distal disease. It was decided to place the SEGOVIA into the D1 branch. The D1 branch was heavily calcified throughout most of its course it was opened distally. The SEGOVIA was anastomosed in end-to-side fashion to the D1 is a running 7-0 Prolene suture. The anastomosis found to be hemostatic and the mammary pedicle was tacked to the epicardium using interrupted 5-0 silk suture. Rewarming was begun during this anastomosis. Aortic cross-clamp was released and the heart distended. The veins were measured and cut appropriate lengths. A partial occluding clamps placed across the mid ascending aorta and the antegrade cardiac plegia cannulas removed. An additional aortotomy site was made 11 blade and both sites were enlarged with a 4 mm punch. The veins were anastomosed in an end-to-side fashion to the aorta using a running 5-0 Prolene suture. The vein grafts were occluded with bulldog clamps and de-aired with 25-gauge needle prior to removing the partial occluding clamp. The proximal distal anastomoses were found to be hemostatic and the proximal anastomoses were marked with radiopaque loops. Two right ventricular Epicardial pacing lesion placed, and 3 chest suture placed, 2 in the mediastinum once the left pleural space. During rewarming the patient's heart regained normal sinus rhythm spontaneously. When the patient's systemic temperature reached 36 history centigrade, he was ventilated and received volume. He was weaned from bypass required no inotropic support. Protamine was measured aortic and venous cannulae were removed. The pursestring sutures were secured. Both the aortic and venous cannulation sites were reinforced with running 4 Prolene sutures. The pericardium was loosely approximated in midline and the sternum was reapproximated sternal wires. The pectoralis major fascia, rectus abdominis fascia, simultaneous tissue, and skin edges were reapproximated running Vicryl sutures. Sterile dressings were applied. Patient was transferred to the ICU in satisfactory postoperative condition. There were no intraoperative complications, and the instrument, needle, and sponge count were correct at end of operation. - Open Heart Detail LIAM (Internal Mammary Artery) Usage: Yes Cardiopulmonary Bypass Time (mins): 90 Aortic Cross Clamp Time (mins): 55 Intentional Hypothermia Temperature (C.): 34
[2018-12-09] MEDS ORDERED: Insulin Regular, Human 100 UNIT/ML IV PRN (12:06)
[2018-12-09] MEDS ORDERED: Potassium Chloride 40 MEQ/200 ML BAG IVPB PRN (12:06)
[2018-12-09] MEDS ORDERED: *HR* Dextrose 50 % in Water (Syg) 50 ML SYRINGE IVP PRN (12:06)
[2018-12-09] MEDS ORDERED: Ondansetron 4 MG/2 ML VIAL IVP PRN (12:08)
[2018-12-09] MEDS ORDERED: Acetaminophen 650 MG RECTAL SUPP RC PRN (12:08)
[2018-12-09] MEDS ORDERED: Acetaminophen 325 MG TABLET PO PRN (12:08)
[2018-12-09] MEDS ORDERED: Naloxone 0.4 MG/ML INJ IVP PRN (12:08)
[2018-12-09] MEDS ORDERED: Insulin Human Regular 100 UNIT in 0.9 % Sodium Chloride 100 ML IVC SCH (12:15)
[2018-12-09] MEDS ORDERED: 0.9 % Sodium Chloride w KCl 20 MEQ/1,000 ML MLS IVC SCH (12:15)
[2018-12-09] MEDS ORDERED: Calcium Gluconate 1gm/50mL 1 GM/50 ML BAG IVPB PRN (12:19)
[2018-12-09 12:30] LABS: ABG Base Excess 0 mEq/L (-2 to 3); ABG HCO3 24 mEq/L (21-27); ABG Oxygen Saturation 96 % (95-98); ABG PCO2 37 mmHg (35-45); ABG PH 7.42 pH Units (7.32-7.45); ABG PO2 76 mmHg (85-104); ABG TCO2 25 mEq/L (20-26); Blood Gas Modality VC; Blood Gas PEEP 5 cm H2O; Blood Gas VT 10 cc
[2018-12-09] MEDS ORDERED: Norepinephrine 4 MG in 0.9 % Sodium Chloride 250 ML IVC SCH (12:30)
[2018-12-09 12:38] LABS: Eosinophils % 0.9 %; Hematocrit 25.7 % (37.5-50.1); Immature Granulocytes % 0.6 % (0-4); Mean Corpuscular Volume 86.8 fL (83.0-100.0); Monocytes % 6.1 %; Red Blood Count 2.96 M/mcL (4.19-5.50); Red Cell Distribution Width 13.2 % (11.5-14.5)
[2018-12-09 12:40] LABS: Basophils % 0.3 %; Eosinophils # 0.1 K/mcL (0.0-0.6); Immature Platelets 1.9 % (1.1-6.1); Lymphocytes # 1.2 K/mcL (0.6-4.6); Lymphocytes % 9.3 %; Mean Corpuscular HGB Conc 36.6 g/dL (31.6-35.5); Mean Corpuscular Hemoglobin 31.8 pg (28.0-33.3); Mean Platelet Volume 8.6 fL (9.4-12.4); Monocytes # 0.8 K/mcL (0.0-1.3); Segmented Neutrophils % 82.8 %
[2018-12-09] MEDS ORDERED: *HR* Magnesium Sulfate 2 GM/50 ML PIGGYBACK IVPB ONE (12:46)
[2018-12-09] MEDS ORDERED: Tranexamic Acid 1,000 MG/10 ML VIAL IVPB ONE (12:46)
[2018-12-09] MEDS ORDERED: *HR* Heparin 10,000 UNIT/10 ML VIAL IV ONE (12:46)
[2018-12-09] MEDS ORDERED: *HR* Phenylephrine 10 MG/ML VIAL IVC ONE (12:46)
[2018-12-09] MEDS ORDERED: Lidocaine 2% Syringe 100 MG/5 ML IV ONE (12:46)
[2018-12-09] MEDS ORDERED: Albumin Human 25% 25 GM/100 ML IV.SOLN IV ONE (12:46)
[2018-12-09] MEDS ORDERED: Sodium Bicarbonate 50 MEQ/50 ML VIAL IVC ONE (12:46)
[2018-12-09] MEDS ORDERED: Mannitol 25% vial 12.5 GM/50 ML VIAL IVP ONE (12:46)
[2018-12-09 12:50] LABS: INR 1.4
[2018-12-09] MEDS: niCARdipine 20 MG/200 ML MLS IVC SCH ×3 (12:50→20:46)
[2018-12-09] MEDS: Nitroglycerin 25 MG/250 ML INFUS..BTL IVC SCH ×2 (12:50→20:46)
[2018-12-09 12:53] LABS: BUN/Creatinine Ratio 21 (6-26); Blood Urea Nitrogen 26 mg/dL (8-23); Calcium 8.7 mg/dL (8.6-10.3); Carbon Dioxide 25 mEq/L (23-29); Chloride 107 mEq/L (98-107); Glucose 114 mg/dL (70-105); Magnesium 2.4 mg/dL (1.6-2.6); Osmolality,Calculated 294 (280-300); Potassium 3.6 mEq/L (3.5-5.1); Sodium 139 mEq/L (136-145); eGFR For African Americans > 60 (> 60); eGFR For Non-African Americans 56 (> 60)
[2018-12-09 12:55] LABS: Neutrophils # 10.4 K/mcL (1.6-8.9); Platelet Count 81 K/mcL (140-400)
[2018-12-09 13:03] LABS: Hemoglobin 9.4 g/dL (12.9-16.9); White Blood Count 12.6 K/mcL (4.3-11.1)
[2018-12-09 13:04] LABS: Activated Partial Thrombo Time 28.2 Seconds (26.0-36.0); Prothrombin Time 16.2 Seconds (9.4-12.1)
[2018-12-09] MEDS: Pantoprazole 40 MG VIAL IVP SCH (14:11)
[2018-12-09 17:22] LABS: ABG Base Excess -3 mEq/L (-2 to 3); ABG HCO3 23 mEq/L (21-27); ABG Oxygen Saturation 96 % (95-98); ABG PCO2 42 mmHg (35-45); ABG PH 7.34 pH Units (7.32-7.45); ABG PO2 87 mmHg (85-104); ABG TCO2 24 mEq/L (20-26); Blood Gas Modality CPAP/PS; Blood Gas PEEP 5 cm H2O; Blood Gas Pressure Support 5 cm H2O
[2018-12-09] MEDS: *HR* FentaNYL (PF) 100 MCG/2 ML VIAL IVP PRN ×2 (17:35→20:46)
[2018-12-09] MEDS: Metoclopramide 10 MG/2 ML VIAL IVP SCH ×2 (17:35→23:07)
[2018-12-09 18:33] LABS: ABG Base Excess -3 mEq/L (-2 to 3); ABG HCO3 23 mEq/L (21-27); ABG Oxygen Saturation 96 % (95-98); ABG PCO2 42 mmHg (35-45); ABG PH 7.34 pH Units (7.32-7.45); ABG PO2 88 mmHg (85-104); ABG TCO2 24 mEq/L (20-26)
[2018-12-09] MEDS: Chlorhexidine Rinse 15 ML MOUTHWASH MM SCH (19:39)
[2018-12-09] MEDS: *HR* OxyCODONE/APAP 5/325 TABLET PO PRN (19:39)
[2018-12-10] MEDS: niCARdipine 20 MG/200 ML MLS IVC SCH ×3 (00:23→11:32)
--- NOTE | 2018-12-10 00:30 | Electrocardiograph Report ---
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
[2018-12-10] MEDS: Nitroglycerin 25 MG/250 ML INFUS..BTL IVC SCH (01:30)
[2018-12-10] MEDS: *HR* OxyCODONE/APAP 5/325 TABLET PO PRN ×4 (01:32→22:42)
[2018-12-10 04:16] LABS: Hemoglobin 10.8 g/dL (12.9-16.9); Immature Granulocytes % 0.5 % (0-4); Red Cell Distribution Width 13.8 % (11.5-14.5)
[2018-12-10 04:17] LABS: Basophils % 0.2 %; Hematocrit 29.9 % (37.5-50.1); Immature Platelets 2.2 % (1.1-6.1); Lymphocytes # 1.1 K/mcL (0.6-4.6); Mean Corpuscular HGB Conc 36.1 g/dL (31.6-35.5); Mean Corpuscular Hemoglobin 31.7 pg (28.0-33.3); Mean Corpuscular Volume 87.7 fL (83.0-100.0); Mean Platelet Volume 9.1 fL (9.4-12.4); Monocytes # 1.3 K/mcL (0.0-1.3); Monocytes % 8.7 %; Neutrophils # 12.8 K/mcL (1.6-8.9); Platelet Count 110 K/mcL (140-400); Red Blood Count 3.41 M/mcL (4.19-5.50); Segmented Neutrophils % 83.6 %; White Blood Count 15.3 K/mcL (4.3-11.1)
[2018-12-10 04:20] LABS: Platelet Estimate Decreased (Normal)
[2018-12-10 04:25] LABS: INR 1.2; Prothrombin Time 13.9 Seconds (9.4-12.1)
[2018-12-10 04:27] LABS: Activated Partial Thrombo Time 29.8 Seconds (26.0-36.0)
[2018-12-10 04:39] LABS: Calcium 8.7 mg/dL (8.6-10.3); Magnesium 2.2 mg/dL (1.6-2.6); Potassium 4.4 mEq/L (3.5-5.1)
[2018-12-10] MEDS: Metoclopramide 10 MG/2 ML VIAL IVP SCH ×4 (06:04→23:53)
--- NOTE | 2018-12-10 06:54 | Cardiothoracic Progress Note ---
Date of Encounter: 12/10/18 Time of Encounter: 06:54 - Assessment and plan (1) CAD (coronary artery disease) Current Visit: No Status: Acute The patient remained hemodynamically stable overnight. He is currently extubated and breathing comfortably. He was able to sit in a chair last evening without difficulty. The arterial line, Leal catheter, and [place]-Griffin catheter be removed. He will be transferred to a 2N stepdown unit when a bed is available. The assessment and plan as outlined above was discussed with the patient and/or family members who expressed understanding and agreement. All questions were answered. Qualifiers: Coronary Disease-Associated Artery/Lesion type: [place] artery [place] vs. t ransplanted heart: [place] heart Associated angina: without angina Qualified Code(s): I25.10 - Atherosclerotic heart disease of [place] coronary artery without angina pectoris - Subjective Procedure(s) Performed: POD#1 S/P CABG3 Interval history: The patient remained hemodynamically stable overnight. He is extubated and breathing comfortably. He was able to sit in a chair last evening without difficulty. He has no complaints. Vital Signs, Last 4 Hours Temp Pulse Resp BP Pulse Ox 12/10/18 06:00 79 16 124/46 98 12/10/18 05:00 89 16 125/45 98 12/10/18 04:00 98.0 F 73 16 134/46 98 12/10/18 03:33 16 98 12/10/18 03:00 74 18 126/47 98 Oxgyen Flow Rate Oxygen Flow Rate (LPM) 3 Clinical Data, last 8 Hours Output, Chest Tube Drainage 15 Amount [Mediastinal #2] Output, Chest Tube Drainage 0 Amount [Mediastinal #2] Output, Chest Tube Drainage 0 Amount [Mediastinal #2] Output, Chest Tube Drainage 0 Amount [Mediastinal #2] Output, Chest Tube Drainage 0 Amount [Mediastinal #2] Output, Chest Tube Drainage 0 Amount [Mediastinal #2] Output, Chest Tube Drainage 5 Amount [Mediastinal #2] Output, Chest Tube Drainage 0 Amount [Mediastinal #2] Output, Chest Tube Drainage 10 Amount [Mediastinal #1] Output, Chest Tube Drainage 15 Amount [Mediastinal #1] Output, Chest Tube Drainage 0 Amount [Mediastinal #1] Output, Chest Tube Drainage 20 Amount [Mediastinal #1] Output, Chest Tube Drainage 0 Amount [Mediastinal #1] Output, Chest Tube Drainage 10 Amount [Mediastinal #1] Output, Chest Tube Drainage 15 Amount [Mediastinal #1] Output, Chest Tube Drainage 15 Amount [Mediastinal #1] Weight 12/08/18 12/09/18 12/10/18 23:59 23:59 23:59 Weight 92.7 kg 92.9 kg - Physical Examination General: Conversant, No Apparent Distress Neck: No JVD, Normal carotid pulses Cardiac: Reg Rate and Rhythm, Normal S1 and S2, No Murmur Incision: No signs of infection, Dry/intact dressing Chest tubes: Minimal drainage, Other (No air leak) Pacing Wires: In place Lungs: Normal Breath Sounds Neuro: Alert and responsive, No focal deficits noted Vascular: Normal capillary refill Extremities: No Clubbing, No Cyanosis, No Edema - Labs 12/10/18 04:00 12/10/18 04:00 Lab Results, Last 24 hours 12/09/18 12/09/18 12/09/18 12:27 12:27 12:27 WBC 12.6 H D Hgb 9.4 L D Hct 25.7 L Plt Count 81 L D INR 1.4 APTT 28.2 D Sodium 139 Potassium 3.6 Chloride 107 Carbon Dioxide 25 BUN 26 H Creatinine 1.26 Glucose 114 H Calcium 8.7 Magnesium 2.4 12/09/18 12/10/18 12/10/18 20:00 04:00 04:00 WBC 15.3 H Hgb 10.8 L Hct 29.9 L Plt Count 110 L INR 1.2 APTT 29.8 Sodium Potassium 4.4 Chloride Carbon Dioxide BUN Creatinine Glucose Calcium Magnesium 12/10/18 04:00 WBC Hgb Hct Plt Count INR APTT Sodium 138 Potassium 4.4 Chloride 109 H Carbon Dioxide 22 L BUN 27 H Creatinine 1.59 H Glucose 144 H Calcium 8.7 Magnesium 2.2 - VTE Documentation of Mechanical Device: Graduated compression elastic hosiery Consult Discharge Plan - Plan Referrals: Brandi Boyce MD [Primary Care Provider] -
[2018-12-10] MEDS: Pantoprazole 40 MG VIAL IVP SCH (08:01)
[2018-12-10] MEDS: Chlorhexidine Rinse 15 ML MOUTHWASH MM SCH ×2 (08:01→19:50)
[2018-12-10] MEDS ORDERED: Aspirin Enteric Coated 81 MG Tablet PO SCH (09:00)
[2018-12-10] MEDS ORDERED: Furosemide 20 MG/2 ML VIAL IVP SCH (09:00)
[2018-12-10] MEDS ORDERED: Dextrose Gel 15 GM/37.5 ML TUBE PO PRN ×4 (12:28)
[2018-12-10] MEDS ORDERED: Insulin Human Regular 100 UNIT in 0.9 % Sodium Chloride 100 ML IVC SCH (12:28)
[2018-12-10] MEDS ORDERED: Naloxone 0.4 MG/ML INJ IVP PRN (12:28)
[2018-12-10] MEDS ORDERED: Insulin Regular, Human 100 UNIT/ML IV PRN (12:28)
[2018-12-10] MEDS ORDERED: D5% in Water 1,000 ML IVC PRN (12:28)
[2018-12-10] MEDS ORDERED: Acetaminophen 325 MG TABLET PO PRN (12:28)
[2018-12-10] MEDS ORDERED: Ondansetron 4 MG/2 ML VIAL IVP PRN (12:28)
[2018-12-10] MEDS ORDERED: *HR* Dextrose 50 % in Water (Syg) 50 ML SYRINGE IVP PRN ×3 (12:28)
[2018-12-10] MEDS: Insulin LISPRO 300 UNITS/3 ML VIAL SQ SCH ×3 (12:50→19:51)
[2018-12-10] MEDS: *HR* Heparin 5,000 UNIT/ML VIAL SQ SCH ×2 (12:54→18:05)
--- NOTE | 2018-12-10 14:26 | Anesthesia Evaluation Post Op ---
Date of Encounter: 12/10/18 Time of Encounter: 13:30 - Vital Signs Vital Signs: Selected Entries 12/10/18 11:23 12/10/18 12:00 Temperature 98.2 F Pulse Rate 102 Respiratory Rate 26 Blood Pressure 130/64 O2 Sat by Pulse Oximetry 96 Oxygen Flow Rate (LPM) 2 - Lungs Lungs: Clear Ascult./Percussion - Airway Airway: Non-obstructed - Cardiovascular Regular Rate - Mental Status Mental Status: Alert & Oriented, Answers Appropriately - Pain Pain Scale: 4 - Nausea Vomiting Nausea Vomiting: Not Present - Hydration Hydration: Tolerates oral liquids, Leal catheter Notes: 12/10/18 14:26 sitting in chair eatting lunch
[2018-12-10] MEDS ORDERED: Amiodarone Premix 150 MG/100 ML BAG IVPB ONE (15:05)
[2018-12-10] MEDS ORDERED: Amiodarone Premix 360 MG/200 ML BAG IVC ONE (15:05)
[2018-12-10 15:52] LABS: ABG Base Excess -1 mEq/L (-2 to 3); ABG Chloride 101 mEq/L (98-107); ABG Glucose 153 mg/dL (60-95); ABG HCO3 24 mEq/L (21-27); ABG Ionized Calcium 1.43 mmol/L (1.15-1.35); ABG Oxygen Saturation 99 % (95-98); ABG PCO2 39 mmHg (35-45); ABG PH 7.39 pH Units (7.32-7.45); ABG PO2 117 mmHg (85-104); ABG TCO2 25 mEq/L (20-26)
[2018-12-10] MEDS: Furosemide 20 MG/2 ML VIAL IVP SCH (16:38)
[2018-12-10] MEDS: Insulin DETEMIR 100 UNIT/ML X5UNITS SQ SCH (19:50)
[2018-12-10] MEDS: Amiodarone Premix 360 MG/200 ML BAG IVC SCH (21:15)
[2018-12-11 04:51] LABS: Basophils % 0.3 %; Eosinophils % 0.2 %; Hemoglobin 10.2 g/dL (12.9-16.9); Mean Platelet Volume 9.5 fL (9.4-12.4); Red Cell Distribution Width 13.9 % (11.5-14.5)
[2018-12-11 04:53] LABS: Hematocrit 28.3 % (37.5-50.1); Immature Granulocytes % 0.6 % (0-4); Immature Platelets 2.8 % (1.1-6.1); Lymphocytes # 1.2 K/mcL (0.6-4.6); Lymphocytes % 8.5 %; Mean Corpuscular Volume 88.7 fL (83.0-100.0); Monocytes # 1.5 K/mcL (0.0-1.3); Monocytes % 10.4 %; Neutrophils # 11.4 K/mcL (1.6-8.9); Platelet Count 99 K/mcL (140-400); Red Blood Count 3.19 M/mcL (4.19-5.50); White Blood Count 14.3 K/mcL (4.3-11.1)
[2018-12-11] MEDS: Metoclopramide 10 MG/2 ML VIAL IVP SCH ×3 (05:02→18:17)
[2018-12-11] MEDS: *HR* Heparin 5,000 UNIT/ML VIAL SQ SCH (05:02)
[2018-12-11 05:10] LABS: Calcium 8.8 mg/dL (8.6-10.3); Potassium 4.3 mEq/L (3.5-5.1)
[2018-12-11] MEDS ORDERED: Pantoprazole 40 MG VIAL IVP SCH (07:30)
[2018-12-11] MEDS: Furosemide 20 MG/2 ML VIAL IVP SCH (07:53)
[2018-12-11] MEDS: Aspirin Enteric Coated 81 MG Tablet PO SCH (07:53)
[2018-12-11] MEDS: Chlorhexidine Rinse 15 ML MOUTHWASH MM SCH ×2 (07:53→21:01)
[2018-12-11] MEDS: Insulin LISPRO 300 UNITS/3 ML VIAL SQ SCH ×4 (07:54→21:00)
--- NOTE | 2018-12-11 08:27 | Cardiothoracic Progress Note ---
Date of Encounter: 12/11/18 Time of Encounter: 08:23 - Assessment and plan (1) CAD (coronary artery disease) Current Visit: No Status: Acute We will check a stat portable chest x-ray. We will leave the amiodarone drip on until tomorrow morning and then switch him to by mouth. We will discontinue his subcutaneous heparin and start back his Eliquis. He will be transferred to the floor when a bed becomes available. Qualifiers: Coronary Disease-Associated Artery/Lesion type: [place] artery [place] vs. transplanted heart: [place] heart Associated angina: without angina Qualified Code(s): I25.10 - Atherosclerotic heart disease of [place] coronary artery without angina pectoris - Subjective Interval history: The patient has no complaints. He went into atrial fibrillation yesterday afternoon. Vital Signs, Last 4 Hours Temp Pulse Resp Pulse Ox 12/11/18 07:42 98.2 F 12/11/18 07:34 18 95 12/11/18 06:00 76 12/11/18 05:00 79 Oxgyen Flow Rate Oxygen Flow Rate (LPM) 2 Clinical Data, last 8 Hours Output, Chest Tube Drainage 0 Amount [Mediastinal #2] Output, Chest Tube Drainage 15 Amount [Mediastinal #2] Output, Chest Tube Drainage 70 Amount [Mediastinal #1] Weight 12/09/18 12/10/18 12/11/18 23:59 23:59 23:59 Weight 92.9 kg Lungs are clear to percussion and auscultation. Heart is in a normal sinus rhythm with frequent PACs. All incisions are healing well without signs of infection and the sternum is stable. Chest tube drainage is minimal and there is no air leak. The chest tubes and pacing wires were removed. - Labs 12/11/18 04:40 12/11/18 04:40 Lab Results, Last 24 hours 12/11/18 12/11/18 04:40 04:40 WBC 14.3 H Hgb 10.2 L Hct 28.3 L Plt Count 99 L Sodium 137 Potassium 4.3 Chloride 102 Carbon Dioxide 27 BUN 27 H Creatinine 1.64 H Glucose 217 H Calcium 8.8 - VTE Documentation of Mechanical Device: Graduated compression elastic hosiery Consult Discharge Plan - Plan Referrals: Brandi Boyce MD [Primary Care Provider] -
[2018-12-11] MEDS: Amiodarone Premix 360 MG/200 ML BAG IVC SCH ×2 (08:45→21:09)
[2018-12-11] MEDS: Apixaban 5 MG TABLET PO SCH ×2 (09:36→21:02)
[2018-12-11] MEDS: Insulin DETEMIR 100 UNIT/ML X5UNITS SQ SCH (21:02)
[2018-12-12] MEDS: Metoclopramide 10 MG/2 ML VIAL IVP SCH ×4 (00:31→17:36)
[2018-12-12 01:05] LABS: Basophils # 0.1 K/mcL (0.0-0.2); Basophils % 0.4 %; Eosinophils # 0.1 K/mcL (0.0-0.6); Eosinophils % 0.6 %; Hemoglobin 10.7 g/dL (12.9-16.9); Immature Granulocytes % 0.4 % (0-4); Lymphocytes # 1.5 K/mcL (0.6-4.6); Lymphocytes % 10.9 %; Mean Corpuscular HGB Conc 35.7 g/dL (31.6-35.5); Mean Corpuscular Hemoglobin 31.8 pg (28.0-33.3); Mean Platelet Volume 9.6 fL (9.4-12.4); Monocytes # 1.1 K/mcL (0.0-1.3); Monocytes % 8.2 %; Neutrophils # 10.6 K/mcL (1.6-8.9); Platelet Count 109 K/mcL (140-400); Red Blood Count 3.37 M/mcL (4.19-5.50); Red Cell Distribution Width 13.9 % (11.5-14.5); Segmented Neutrophils % 79.5 %; White Blood Count 13.3 K/mcL (4.3-11.1)
[2018-12-12 01:25] LABS: Calcium 8.9 mg/dL (8.6-10.3)
--- NOTE | 2018-12-12 07:58 | Cardiothoracic Progress Note ---
Date of Encounter: 12/12/18 Time of Encounter: 07:56 - Assessment and plan (1) CAD (coronary artery disease) Current Visit: No Status: Acute We will switch the patient from IV to by mouth amiodarone. Hopefully, he can be discharged this weekend. Qualifiers: Coronary Disease-Associated Artery/Lesion type: [place] artery [place] vs. transplanted heart: [place] heart Associated angina: without angina Qualified Code(s): I25.10 - Atherosclerotic heart disease of [place] coronary artery without angina pectoris - Subjective Interval history: The patient is tolerating his diet and beginning to ambulate. He has no complaints. Vital Signs, Last 4 Hours Temp Pulse Resp BP Pulse Ox 12/12/18 07:17 98.3 F 81 18 136/62 95 12/12/18 04:20 90 12/12/18 04:00 99.2 F 87 18 122/73 96 12/12/18 03:59 17 95 Oxgyen Flow Rate Oxygen Flow Rate (LPM) 2 Clinical Data, last 8 Hours Output, Urine Amount 0 Weight 12/10/18 12/11/18 12/12/18 23:59 23:59 23:59 Weight 94.5 kg Lungs are clear to percussion and auscultation. Heart is in a normal sinus rhythm. All incisions are healing well without signs of infection and the sternum is stable. - Labs 12/12/18 00:54 12/12/18 00:54 Lab Results, Last 24 hours 12/12/18 12/12/18 00:54 00:54 WBC 13.3 H Hgb 10.7 L Hct 30.0 L Plt Count 109 L Sodium 136 Potassium 4.0 Chloride 100 Carbon Dioxide 28 BUN 28 H Creatinine 1.56 H Glucose 180 H Calcium 8.9 - VTE Documentation of Mechanical Device: Graduated compression elastic hosiery Consult Discharge Plan - Plan Referrals: Brandi Boyce MD [Primary Care Provider] -
[2018-12-12] MEDS: *HR* Amiodarone 200 MG TABLET PO SCH (09:00)
[2018-12-12] MEDS: Apixaban 5 MG TABLET PO SCH ×2 (09:00→20:57)
[2018-12-12] MEDS: Aspirin Enteric Coated 81 MG Tablet PO SCH (09:00)
[2018-12-12] MEDS: Chlorhexidine Rinse 15 ML MOUTHWASH MM SCH ×2 (09:01→20:56)
[2018-12-12] MEDS: Insulin LISPRO 300 UNITS/3 ML VIAL SQ SCH ×4 (09:01→20:57)
[2018-12-12] MEDS: Insulin DETEMIR 100 UNIT/ML X5UNITS SQ SCH (20:58)
[2018-12-13 01:27] LABS: Basophils # 0.1 K/mcL (0.0-0.2); Basophils % 0.5 %; Eosinophils # 0.2 K/mcL (0.0-0.6); Hematocrit 28.7 % (37.5-50.1); Hemoglobin 10.1 g/dL (12.9-16.9); Immature Granulocytes % 0.4 % (0-4); Lymphocytes % 9.9 %; Mean Corpuscular HGB Conc 35.2 g/dL (31.6-35.5); Mean Corpuscular Hemoglobin 32.1 pg (28.0-33.3); Mean Corpuscular Volume 91.1 fL (83.0-100.0); Mean Platelet Volume 9.8 fL (9.4-12.4); Monocytes # 0.9 K/mcL (0.0-1.3); Monocytes % 8.9 %; Neutrophils # 8.2 K/mcL (1.6-8.9); Platelet Count 149 K/mcL (140-400); Red Blood Count 3.15 M/mcL (4.19-5.50); Red Cell Distribution Width 13.9 % (11.5-14.5); Segmented Neutrophils % 78.3 %; White Blood Count 10.5 K/mcL (4.3-11.1)
[2018-12-13 01:45] LABS: BUN/Creatinine Ratio 19 (6-26); Blood Urea Nitrogen 25 mg/dL (8-23); Calcium 8.9 mg/dL (8.6-10.3); Carbon Dioxide 28 mEq/L (23-29); Chloride 101 mEq/L (98-107); Glucose 97 mg/dL (70-105); Osmolality,Calculated 288 (280-300); Potassium 3.8 mEq/L (3.5-5.1); Sodium 137 mEq/L (136-145); eGFR For African Americans > 60 (> 60); eGFR For Non-African Americans 52 (> 60)
[2018-12-13 07:14] VITALS: BP 149/77
[2018-12-13] MEDS: *HR* Amiodarone 200 MG TABLET PO SCH (07:57)
[2018-12-13] MEDS: Chlorhexidine Rinse 15 ML MOUTHWASH MM SCH (07:57)
[2018-12-13] MEDS: Aspirin Enteric Coated 81 MG Tablet PO SCH (07:58)
[2018-12-13] MEDS: Apixaban 5 MG TABLET PO SCH (07:58)
[2018-12-13] MEDS: Insulin LISPRO 300 UNITS/3 ML VIAL SQ SCH (08:02)
--- NOTE | 2018-12-13 08:22 | Discharge Summary ---
Date of Encounter: 12/13/18 Time of Encounter: 08:21 - Discharge Diagnosis (1) CAD (coronary artery disease) Priority: Primary Status: Acute Qualifiers: Coronary Disease-Associated Artery/Lesion type: [place] artery [place] vs. transplanted heart: [place] heart Associated angina: without angina Qualified Code(s): I25.10 - Atherosclerotic heart disease of [place] coronary artery without angina pectoris - Hospital Course Hospital course: Mr. Smith is a 73 year old type II diabetic, hypertensive man with known CAD and cerebrovascular disease. His cardiac history dates back some 20-25 years ago when he underwent PCI with coronary stent placement. He had restenosis and 3 additional stents placed. He did well until the last 1-2 weeks prior to admission when he began experiencing exertional, nonradiating substernal chest pain with minimal activity. He underwent an exercise stress test which revealed a significant ischemia. Subsequent cardiac catheterization revealed severe 3 vessel CAD and an LVEF 60%. In particular, the patient has a 70% proximal left main lesion, a completely occluded mid LAD, a 70% proximal D1 lesion, a 95% proximal LCx lesion, an 80% distal LCx lesion, a 95% proximal RCA lesion, a 99% mid RCA lesion, an 80% distal RCA lesion. He has been recommended for CABG. The patient was taken off his elequis was preoperatively. He underwent CABG 3 on 12/09/2018. His postoperative course was complicated by transient atrial fibrillation which converted to normal sinus rhythm with amiodarone. He was ambulating in the hallways without difficulty. He was discharged home on POD#4. - Time Spent with Patient Total time spent providing and/or coordinating discharge services: - Discharge Medications Prescriptions: New Amiodarone [Cordarone] 200 mg PO DAILY #30 tablet Metoprolol [Lopressor] 25 mg PO BID #60 tablet Oxycodone HCl/Acetaminophen [Percocet 5-325 mg Tablet] 1 each PO Q6H PRN 7 Days #28 tablet PRN Reason: Pain Continued Simvastatin [Zocor] 40 mg PO HS Fish Oil/Dha/Epa [Fish Oil 1,200 mg Fish Oil] 1 cap PO QAM Apixaban [Eliquis] 5 mg PO BID Lisinopril [Zestril] 40 mg PO DAILY Insulin NPH Human Isophane [Novolin N] 15 units SQ BID Aspirin Enteric Coated [Aspirin EC] 81 mg PO DAILY Home Medications: Simvastatin [Zocor] 40 mg PO HS 02/09/16 [History] Fish Oil/Dha/Epa [Fish Oil 1,200 mg Fish Oil] 1 cap PO QAM 03/03/16 [History] Apixaban [Eliquis] 5 mg PO BID 09/03/18 [History] Lisinopril [Zestril] 40 mg PO DAILY 09/03/18 [History] Insulin NPH Human Isophane [Novolin N] 15 units SQ BID 10/11/18 [History] Aspirin Enteric Coated [Aspirin EC] 81 mg PO DAILY 12/04/18 [History] Amiodarone [Cordarone] 200 mg PO DAILY #30 tablet 12/13/18 [Rx] Metoprolol [Lopressor] 25 mg PO BID #60 tablet 12/13/18 [Rx] Oxycodone HCl/Acetaminophen [Percocet 5-325 mg Tablet] 1 each PO Q6H PRN 7 Days #28 tablet 12/13/18 [Rx] Allergies/Adverse Reactions: Allergy/AdvReac Type Severity Reaction Status Date / Time No Known Allergies Allergy Verified 12/04/18 11:42 Date of admission: 12/05/18 14:16 Primary care physician: Brandi Boyce MD Consults: 12/04/18 15:05 Consult to Hospitalist [CONS] Stat Consulting Provider: Hospitalist [place] Reason for Consult: diabetes management Call Completed: Yes 12/09/18 12:06 Consult to Cardiac Rehabilitation-Phase1 [CONS] Routine Comment: Reason for Consult: Post open heart Call Completed: Yes Procedure(s) Performed: 1. Cardiac catheterization performed 12/04/2018. 2. CABG3 (SEGOVIA to D1, SVG to OM1, SVG to PDA) performed 12/09/2018. 3. Endoscopic vein harvesting, greater saphenous vein from right lower extremity performed 12/09/2018. 4. Endoscopic vein harvesting, greater saphenous vein from left lower extremity performed 12/09/2018. Discharging clinician: Dru Osei Anticipated date of discharge: 12/13/18 Physical Examination Vital Signs, Last 4 Hours Temp Pulse Resp BP Pulse Ox 12/13/18 07:39 18 96 12/13/18 07:09 98.0 F 73 18 149/77 12/13/18 04:37 98.0 F 80 19 169/79 96 General: Conversant, No Apparent Distress HEENT: Atraumatic, Normocephaly, Trachea midline Neck: No JVD, Normal carotid pulses Cardiac: Reg Rate and Rhythm, Normal S1 and S2, No Murmur Lungs: Normal Breath Sounds, No Wheeze, Rales, Rhonchi Neuro: Alert and responsive, No focal deficits noted Vascular: Normal capillary refill Abdomen: Soft, Non-tender Skin: No rashes noted on visualized skin Extremities: No Clubbing, No Cyanosis, No Edema - Patient Status Disposition: Home, Self-Care Condition: Good Functional capacity at discharge: independent ambulation Overall status at discharge: patient is progressing back to baseline - Discharge Instructions Follow Up With: Jose Daniel Watson MD [Partnered Physician] - Dru Osei MD [Partnered Physician] - Slava Gibbons MD [Partnered Physician] - 12/20/18 2:00 pm - Diet and Activity Activity: sternal precautions, no driving for four weeks, no lifting greater than 10 pounds for eight weeks Diet: diabetic diet, low fat, low cholesterol Open Heart Registry Aspirin Cont/Prescribed at DC: Yes Beta Maisha Cont/Prescribed at DC: Yes Statin Cont/Prescribed at DC: Yes GENA/ARB Cont/Prescribed at DC: Yes - VTE Documentation of Mechanical Device: Graduated compression elastic hosiery
== END 2018-12-13 12:45 | disposition home or self-care (01) | DRG 234 ==
LOC: 2NNU 11:34 → EMEROOARM 11:34 → 2NNU 15:27 → 2NENU 15:54 → ICNU 12-09 10:13 → 2NNU 12-11 17:41
PROVIDERS: ADMIT Internal Medicine Cardiovascular Disease; ATTEND Thoracic Surgery (Cardiothoracic Vascular Surgery)

== ENCOUNTER 2021-06-13 13:24 | Observation (INO) ==
[2021-06-13] MEDS ORDERED: Isovue-370 500 ML BOTTLE IVP ONE (14:17)
[2021-06-13 15:11] LABS: Basophils # 0.1 K/mcL (0.0-0.2); Basophils % 0.4 %; Eosinophils # 0.1 K/mcL (0.0-0.6); Eosinophils % 0.7 %; Hematocrit 37.2 % (37.5-50.1); Hemoglobin 12.6 g/dL (12.9-16.9); Immature Granulocytes % 0.4 % (0-4); Lymphocytes # 1.6 K/mcL (0.6-4.6); Lymphocytes % 13.1 %; Mean Corpuscular HGB Conc 33.9 g/dL (31.6-35.5); Mean Corpuscular Hemoglobin 32.1 pg (28.0-33.3); Mean Corpuscular Volume 94.7 fL (83.0-100.0); Mean Platelet Volume 9.8 fL (9.4-12.4); Monocytes # 1.2 K/mcL (0.0-1.3); Monocytes % 9.4 %; Neutrophils # 9.4 K/mcL (1.6-8.9); Platelet Count 165 K/mcL (140-400); Red Blood Count 3.93 M/mcL (4.19-5.50); Red Cell Distribution Width 14.4 % (11.5-14.5); White Blood Count 12.4 K/mcL (4.3-11.1)
[2021-06-13 15:22] LABS: INR 2.3; Prothrombin Time 25.2 Seconds (9.4-12.1)
[2021-06-13 15:24] LABS: Activated Partial Thrombo Time 32.7 Seconds (26.0-36.0)
[2021-06-13 15:47] LABS: Albumin 4.3 g/dL (3.5-5.7); Albumin/Globulin Ratio 1.8 (1.1-2.2); Bilirubin,Direct 0.2 mg/dL (0.0-0.2); Calcium 9.5 mg/dL (8.6-10.3); Globulin 2.4 g/dL (2.4-3.5); Total Protein 6.7 g/dL (6.4-8.9); Troponin I 0.06 ng/mL (< 0.04)
[2021-06-13 16:04] LABS: Influenza A PCR Negative (Negative); Influenza B PCR Negative (Negative); Resp. Syncytial Virus PCR Negative (Negative); SARS-CoV-2 by PCR (In House) Negative (Negative)
[2021-06-13] MEDS ORDERED: Mag Hydrox/Al Hydrox/Simeth 30 ML UDC PO PRN (16:41)
[2021-06-13] MEDS ORDERED: Ondansetron ODT 4 MG TAB.RAPDIS SL PRN (16:41)
[2021-06-13] MEDS ORDERED: Melatonin 3 MG TABLET PO PRN (16:41)
[2021-06-13] MEDS ORDERED: Naloxone 0.4 MG/ML INJ IVP PRN (16:41)
[2021-06-13] MEDS ORDERED: 0.9 % Sodium Chloride 500 ML IVC ONE (16:42)
[2021-06-13] MEDS ORDERED: 0.9 % Sodium Chloride 1,000 ML IVC SCH (16:45)
[2021-06-13 17:08] LABS: Bilirubin,Indirect 0.5 mg/dL (0.0-1.0); Bilirubin,Total 0.7 mg/dL (0.3-1.0); Magnesium 2.4 mg/dL (1.6-2.6)
[2021-06-13] MEDS ORDERED: Perflutren Lipid Microsphere 1.3 ML in 0.9 % Sodium Chloride 8.7 ML IVP PRN (17:26)
[2021-06-13] MEDS ORDERED: Warfarin perPT PO PRN (18:00)
[2021-06-13] MEDS: carvediloL 6.25 MG TABLET PO SCH (18:36)
[2021-06-13 19:38] LABS: Bilirubin,Urine Negative (Negative); Blood,Urine Negative (Negative); Clarity,Urine Clear (Clear); Color,Urine Yellow (Yellow); Glucose,Urine (UA) Normal (Normal); Ketones,Urine Negative (Negative); Leukocyte Esterase,Urine Negative (Negative); Nitrite,Urine Negative (Negative); PH,Urine 6.5 pH Units (5.0-8.0); Protein,Urine Trace mg/dL (Neg-Trace); Specific Gravity,Urine 1.023 (1.010-1.025); Urobilinogen,Urine Normal (Normal)
[2021-06-13] MEDS: hydrALAZINE 25 MG TABLET PO SCH (20:41)
[2021-06-14 04:56] LABS: Hematocrit 35.3 % (37.5-50.1); Hemoglobin 11.9 g/dL (12.9-16.9); Immature Platelets 2.1 % (1.1-6.1); Mean Corpuscular HGB Conc 33.7 g/dL (31.6-35.5); Mean Corpuscular Volume 94.9 fL (83.0-100.0); Mean Platelet Volume 9.3 fL (9.4-12.4); Red Blood Count 3.72 M/mcL (4.19-5.50); White Blood Count 7.9 K/mcL (4.3-11.1)
[2021-06-14 05:06] LABS: INR 2.7; Prothrombin Time 29.9 Seconds (9.4-12.1)
[2021-06-14 05:16] LABS: Albumin 3.4 g/dL (3.5-5.7); Albumin/Globulin Ratio 1.5 (1.1-2.2); Bilirubin,Total 0.8 mg/dL (0.3-1.0); Calcium 8.3 mg/dL (8.6-10.3); Chol/HDL Ratio 2.5 (0-4.9); Globulin 2.2 g/dL (2.4-3.5); Potassium 3.7 mEq/L (3.5-5.1); Total Protein 5.6 g/dL (6.4-8.9)
[2021-06-14] MEDS: carvediloL 6.25 MG TABLET PO SCH (05:34)
[2021-06-14 06:07] LABS: Estimated Average Glucose 108 mg/dl; Hemoglobin A1C 5.4 %
[2021-06-14] MEDS: *HR* Amiodarone 200 MG TABLET PO SCH (09:07)
[2021-06-14] MEDS: Aspirin Enteric Coated 81 MG Tablet PO SCH (09:07)
[2021-06-14] MEDS: Cholecalciferol (D-3) 1,000 UNIT (25MCG) TABLET PO SCH (09:07)
[2021-06-14] MEDS: Folic Acid 1 MG TABLET PO SCH (09:07)
[2021-06-14] MEDS: lisinopriL 20 MG TABLET PO SCH (09:07)
[2021-06-14] MEDS: hydrALAZINE 25 MG TABLET PO SCH ×3 (09:08→20:05)
[2021-06-15 03:02] LABS: INR 2.6; Prothrombin Time 29.1 Seconds (9.4-12.1)
[2021-06-15 07:19] VITALS: O2SAT 96
[2021-06-15] MEDS: Cholecalciferol (D-3) 1,000 UNIT (25MCG) TABLET PO SCH (09:27)
[2021-06-15] MEDS: *HR* Amiodarone 200 MG TABLET PO SCH (09:27)
[2021-06-15] MEDS: Aspirin Enteric Coated 81 MG Tablet PO SCH (09:27)
[2021-06-15] MEDS: lisinopriL 20 MG TABLET PO SCH (09:27)
[2021-06-15] MEDS: Folic Acid 1 MG TABLET PO SCH (09:27)
[2021-06-15] MEDS: hydrALAZINE 25 MG TABLET PO SCH (09:27)
[2021-06-15 11:01] VITALS: PULSE 69; TEMP 97.6
[2021-06-15] MEDS ORDERED: amLODIPine 5 MG TABLET PO SCH (11:30)
[2021-06-15 13:31] VITALS: BP 150/68
[2021-06-15] MEDS ORDERED: *HR* Warfarin 5 MG TABLET PO ONE (18:00)
== END 2021-06-15 15:48 | disposition home or self-care (01) ==
LOC: SUATTDRO → 3BNU 13:24 → EMEROOARM 13:24 → 3BNU 18:25
PROVIDERS: ADMIT Family Medicine; ATTEND Family Medicine